=== PATIENT | male | born 1935 | race Caucasian/White ===

== ENCOUNTER → 2019-07-01 09:24 | Outpatient (BNVA) | payer MEDICARE, OTHER, SELFPAY | PROVIDERS: PCP Nurse Practitioner Family; Visit Provider Nurse Practitioner | DX: F41.1 Generalized anxiety disorder (principal) | CPT/HCPCS: 99213 ==

== ENCOUNTER → 2019-08-05 11:59 | Outpatient (BNVA) | payer MEDICARE, OTHER, SELFPAY | PROVIDERS: PCP Nurse Practitioner Family; Visit Provider Nurse Practitioner Family | DX: Z86.718 Personal history of other venous thrombosis and embolism (principal); E55.9 Vitamin D deficiency, unspecified; E78.2 Mixed hyperlipidemia; Z12.5 Encounter for screening for malignant neoplasm of prostate; R53.83 Other fatigue; Z79.899 Other long term (current) drug therapy; N40.0 Benign prostatic hyperplasia without lower urinary tract symptoms; M51.36 Other intervertebral disc degeneration, lumbar region; Z98.890 Other specified postprocedural states; Z79.01 Long term (current) use of anticoagulants | CPT/HCPCS: 80053; 80061; 81001; 82306; 83036; 84443; 85025; 85610; G0103 ==

== ENCOUNTER → 2019-09-30 07:46 | Outpatient (BNVA) | payer MEDICARE, OTHER, SELFPAY | PROVIDERS: PCP Nurse Practitioner Family; Visit Provider Nurse Practitioner | DX: F41.1 Generalized anxiety disorder (principal) | CPT/HCPCS: 99213 ==

== ENCOUNTER → 2019-11-08 12:02 | Outpatient (BNVA) | payer MEDICARE, SELFPAY | PROVIDERS: PCP Nurse Practitioner Family; Visit Provider Family Medicine | DX: Z79.01 Long term (current) use of anticoagulants (principal) | CPT/HCPCS: 85610 ==

== ENCOUNTER → 2019-11-16 21:52 | Outpatient (BNVA) | payer MEDICARE, SELFPAY | PROVIDERS: PCP Nurse Practitioner Family; Visit Provider Nurse Practitioner Family | DX: Z79.01 Long term (current) use of anticoagulants (principal) | CPT/HCPCS: 85610 ==

== ENCOUNTER → 2020-01-10 11:07 | Outpatient (BNVA) | payer MEDICARE, SELFPAY | PROVIDERS: PCP Nurse Practitioner Family; Visit Provider Nurse Practitioner Family | DX: Z00.00 Encounter for general adult medical examination without abnormal findings (principal); Z79.01 Long term (current) use of anticoagulants | CPT/HCPCS: 85610 ==

== ENCOUNTER → 2020-02-23 09:21 | Outpatient (BNVA) | payer MEDICARE, SELFPAY | PROVIDERS: PCP Nurse Practitioner Family; Visit Provider Nurse Practitioner Family | DX: Z79.01 Long term (current) use of anticoagulants (principal) | CPT/HCPCS: 85610 ==

== ENCOUNTER → 2020-02-28 08:57 | Outpatient (BNVA) | payer MEDICARE, SELFPAY | PROVIDERS: PCP Nurse Practitioner Family; Visit Provider Nurse Practitioner Family | DX: Z79.01 Long term (current) use of anticoagulants (principal); D69.9 Hemorrhagic condition, unspecified | CPT/HCPCS: 85610 ==

== ENCOUNTER → 2020-03-30 08:14 | Outpatient (BNVA) | payer MEDICARE, SELFPAY | PROVIDERS: PCP Nurse Practitioner Family; Visit Provider Nurse Practitioner Family | DX: Z79.01 Long term (current) use of anticoagulants (principal) | CPT/HCPCS: 85610 ==

== ENCOUNTER → 2020-05-03 09:59 | Outpatient (BNVA) | payer MEDICARE, SELFPAY | PROVIDERS: PCP Nurse Practitioner Family; Visit Provider Nurse Practitioner Family | DX: Z79.01 Long term (current) use of anticoagulants (principal) | CPT/HCPCS: 85610 ==

== ENCOUNTER → 2020-06-12 08:59 | Outpatient (BNVA) | payer MEDICARE, SELFPAY | PROVIDERS: PCP Nurse Practitioner Family; Visit Provider Nurse Practitioner Family | DX: Z79.01 Long term (current) use of anticoagulants (principal) | CPT/HCPCS: 85610 ==

== ENCOUNTER → 2020-08-17 08:34 | Outpatient (BNVA) | payer MEDICARE, SELFPAY | PROVIDERS: PCP Nurse Practitioner Family; Visit Provider Nurse Practitioner Family | DX: Z79.01 Long term (current) use of anticoagulants (principal) | CPT/HCPCS: 85610 ==

== ENCOUNTER → 2020-10-03 09:27 | Outpatient (BNVA) | payer MEDICARE, SELFPAY | PROVIDERS: PCP Nurse Practitioner Family; Visit Provider Nurse Practitioner Family | DX: Z12.5 Encounter for screening for malignant neoplasm of prostate (principal); Z79.01 Long term (current) use of anticoagulants; E78.2 Mixed hyperlipidemia; E55.9 Vitamin D deficiency, unspecified; R53.83 Other fatigue; Z86.718 Personal history of other venous thrombosis and embolism; M51.36 Other intervertebral disc degeneration, lumbar region | CPT/HCPCS: 80053; 80061; 81003; 82306; 83036; 84443; 85025; 85610; G0103 ==

== ENCOUNTER → 2020-11-09 15:47 | Outpatient (BNVA) | payer MEDICARE, SELFPAY | PROVIDERS: PCP Nurse Practitioner Family; Visit Provider Orthopaedic Surgery | DX: M54.5 Low back pain (principal) | CPT/HCPCS: 72110 ==

== ENCOUNTER → 2021-07-04 10:10 | Outpatient (BNVA) | payer MEDICARE, SELFPAY | PROVIDERS: PCP Nurse Practitioner Family; Visit Provider Orthopaedic Surgery | DX: M18.12 Unilateral primary osteoarthritis of first carpometacarpal joint, left hand (principal); G56.02 Carpal tunnel syndrome, left upper limb; Z46.89 Encounter for fitting and adjustment of other specified devices | CPT/HCPCS: 73130; 97760; L3924 ==

== ENCOUNTER 2021-07-04 11:24 | Outpatient (CLI) | payer MEDICARE, SELFPAY | END 2021-07-04 11:25 | disposition home or self-care (01) | LOC: SPT 11:25 | PROVIDERS: PCP Nurse Practitioner Family; Visit Provider Orthopaedic Surgery | DX: Z46.89 Encounter for fitting and adjustment of other specified devices (principal); M18.12 Unilateral primary osteoarthritis of first carpometacarpal joint, left hand | CPT/HCPCS: 97760; L3924 ==

== ENCOUNTER → 2021-07-06 11:22 | Outpatient (BNVA) | payer MEDICARE, SELFPAY | PROVIDERS: PCP Nurse Practitioner Family; Visit Provider Nurse Practitioner Family | DX: E55.9 Vitamin D deficiency, unspecified (principal); Z79.899 Other long term (current) drug therapy; R39.9 Unspecified symptoms and signs involving the genitourinary system; Z86.711 Personal history of pulmonary embolism | CPT/HCPCS: 80053; 80061; 81003; 82306; 83036; 84443; 85025; 85610; G0103 ==

== ENCOUNTER → 2021-08-14 11:01 | Outpatient (BNVA) | payer MEDICARE, SELFPAY | PROVIDERS: PCP Nurse Practitioner Family; Referring Provider Orthopaedic Surgery; Visit Provider Specialist | DX: G56.02 Carpal tunnel syndrome, left upper limb (principal); G56.22 Lesion of ulnar nerve, left upper limb | CPT/HCPCS: 95908 ==

== ENCOUNTER → 2021-10-03 10:49 | Outpatient (BNVA) | payer MEDICARE, SELFPAY | PROVIDERS: PCP Nurse Practitioner Family; Visit Provider Nurse Practitioner | DX: R53.83 Other fatigue (principal); M25.561 Pain in right knee; R39.9 Unspecified symptoms and signs involving the genitourinary system | CPT/HCPCS: 81000 ==

== ENCOUNTER → 2021-10-19 10:34 | Outpatient (BNVA) | payer MEDICARE, SELFPAY | PROVIDERS: PCP Family Medicine; Visit Provider Nurse Practitioner Family | DX: R39.9 Unspecified symptoms and signs involving the genitourinary system (principal); R31.0 Gross hematuria | CPT/HCPCS: 51741; 51798; 81003; 87086; 88112; 99203 ==

== ENCOUNTER → 2021-11-06 09:16 | Outpatient (BNVA) | payer MEDICARE, SELFPAY | PROVIDERS: PCP Family Medicine; Visit Provider Nurse Practitioner | DX: R60.9 Edema, unspecified (principal) | CPT/HCPCS: 80053 ==

== ENCOUNTER → 2022-01-21 15:19 | Outpatient (BNVA) | payer MEDICARE, SELFPAY | PROVIDERS: PCP Family Medicine; Visit Provider Internal Medicine | DX: F41.1 Generalized anxiety disorder (principal); R01.1 Cardiac murmur, unspecified; R06.02 Shortness of breath; M79.89 Other specified soft tissue disorders; R60.0 Localized edema; I50.9 Heart failure, unspecified; Z87.891 Personal history of nicotine dependence | CPT/HCPCS: 36415; 80048; 83880; 99204 ==

== ENCOUNTER 2022-03-15 07:53 | Outpatient (CLI) | payer MEDICARE, SELFPAY ==
[2022-03-15 08:10] VITALS: BMI 32.1
--- NOTE | 2022-03-15 08:29 | ECG_ITS ---
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 Interpretive Statements NAME OF STUDY: LEXISCAN SESTAMIBI STRESS TEST INDICATION: Shortness of Breath PROCEDURE: At the baseline, the blood pressure was 158/68 mmHg with a heart rate of 66 bpm. The electrocardiogram showed normal sinus rhythm. Poor anterior R wave progression. Nonspecific T wave changes in lead III and aVF. The Lexiscan was infused over a period of 20 seconds. A total of 0.4 milligrams of Lexiscan was infused. The stress phase was continued for a total of 5 minutes. Heart rate at the end of the stress phase was 83 bpm with a blood pressure of 152/67 mmHg. The EKG at the peak infusion revealed sinus rhythm with no significant ST-T wave changes artifact. The study was terminated due to protocol completion. Sestamibi was injected 20 seconds after the Lexiscan infusion. Blood pressure at the end of the recovery phase was 157/66 mmHg with a heart rate of 71 beats per minute. CONCLUSION: 1. No significant EKG changes with the LexiScan infusion. 2. No LexiScan induced chest pain or cardiac arrhythmia. 3. Normal blood pressure and heart rate response. 4. Sestamibi/sestamibi perfusion scan pending; see separate report. Electronically Signed On 03-19-2022 11:30:06 CDT by Anusha Parker M.D. [email or web address]
--- NOTE | 2022-03-15 08:29 | NMCV_ITS ---
NM jam perf SPECT r/s* [id number] Zeus Arthur Age: 87 Gender: M : 1935 Exam Date: 03/15/2022 09:42 Ordering Phys: Heath Rodriguez M.D ([email or web address]) Technologist: FELICIANO Herbert Exam Location: [facility] Indications: HEART MURMUR STRESS TEST Please see separate stress test report in [facility] for full findings IMAGE PROTOCOL Rest/Stress 1 Lexiscan Day Radiopharmaceutical Dose (mCi) Administration Site Administered by Rest: Tc-99m 10.8 IV FELICIANO Acevedo Sestamibi Stress:Tc-99m 32.6 IV FELICIANO Acevedo Sestamibi Rest: 15-Mar-2022 60 Discovery 630 Stress: 15-Mar-2022 30 Discovery 630 0.4mg Lexiscan. Supine position only as patient was unable to lay prone. SPECT RESULTS Technical Quality: Excellent Raw Data Analysis: Normal Image Corrections: No attenuation or motion correction applied Summed Stress Score: 2 Summed Rest Score: 2 Summed Difference Score: 1 PERFUSION FINDINGS Small size perfusion abnormality of mild severity of mid inferolateral wall on rest images with subtle reversibility in apical lateral wall on stress images. FUNCTIONAL RESULTS (calculated via Gated SPECT) Stress Image LV EF (%): 62 Stress EDV (mL):151 TID: 1.13 Stress ESV (mL):58 FUNCTIONAL FINDINGS: The left ventricle is normal in size. Transient Ischemia Dilatation of 1.1. There is normal left ventricular systolic function. The left ventricular ejection fraction is normal with a value of 62%. There is normal left ventricular wall thickening. IMPRESSIONS 1. Small sized perfusion abnormality of mid to apical inferolateral beaulieu with subtle reversibility in apical lateral wall . 2. This may represent attenuation artifact in absence of prone imaging. However small area of ischemia in circumflex artery territory cannot be completely ruled out. 3. Overall left ventricular systolic function is normal without regional wall motion abnormalities, LVEF=62%. 4. EKG portion of the study will be reported separately. Anusha Parker MD (Electronically Signed) Final Date: 19 March 2022 10:50 S
[2022-03-15] MEDS: regadenoson 0.4 Mg/5 ml Syringe IVP (10:40)
[2022-03-15 10:57] VITALS: BP 157/66; PULSE 71
--- NOTE | 2022-03-15 11:15 | USCV_ITS ---
Zeus Arthur Age: 87 Gender: M : 1935 Exam Date: 03/15/2022 08:42 Ordering Phys: Heath Rodriguez M.D ([email or web address]) Technologist: TERESA Exam Location: [facility] [place]ication: BLE SWELLING HISTORY: Lower extremity swelling. PROCEDURES: Venous duplex imaging was performed in bilateral lower extremities. The following venous structures were evaluated: common femoral vein, profunda vein, proximal portion of the greater saphenous vein, superficial femoral vein, and the popliteal vein. Bilaterally, the common femoral, superficial femoral, profunda femoral, popliteal, posterior tibial, greater saphenous veins, and the peroneal trunk were identified and interrogated in the standard fashion. These veins were found to be easily compressible with spontaneous blood flow. No evidence of insufficiency or thrombus noted. Serial compression, augmentation maneuvers, and spectral Doppler flow evaluation were performed. FINDINGS: Chronic DVT seen in Right Pop Vein. All other veins appear patent at this time Edema seen in lower extremities. CONCLUSIONS No acute DVT bilateral lower extremities. Chronic DVT right popliteal vein. Dr. Marianne Badillo DO (Electronically Signed) Final Date: 15 March 2022 12:40 S
--- NOTE | 2022-03-15 12:00 | USCV_ITS ---
Zeus Arthur Age: 87 Gender: M : 1935 Exam Date: 03/15/2022 08:55 Ordering Phys: Heath Rodriguez M.D ([email or web address]) Technologist: TERESA [place] [facility] [place]: MURMUR BP: 132 / 82 HR: 64 Rhythm: Sinus Technical Quality: Adequate MEASUREMENTS (Male / Female) Normal Values 2D ECHO LVOT Diameter 2.0 cm LV Ejection Fraction MOD 2C 68.9 % LV Ejection Fraction 2C AL 70.5 % LA Diameter 3.4 cm LA Width 3.1 cm LA Height 6.0 cm RA Width 4.0 cm RA Height 6.9 cm Aorta at Sinotubular Diameter 4.3 cm M-MODE Aortic Annulus Diameter 3.9 cm LA Ao Ratio MM 0.9 MV E Point Septal Separation 0.5 cm DOPPLER AV Peak Velocity 178.3 cm/s LVOT Peak Velocity 119.0 cm/s AV Area Cont Eq vti 2.3 cm squared AV Area Cont Eq pk 2.1 cm squared MV Peak Velocity 147.0 cm/s MV Area PHT 2.4 cm squared Mitral E to A Ratio 0.9 MV E' Velocity 41.0 cm/s Mitral E to MV E' Ratio 6.5 Mitral E to LV E' Lateral Ratio 6.6 Mitral E to LV E' Septal Ratio 6.5 TR Peak Velocity 195.4 cm/s TR Peak Gradient 15.3 mmHg TR Mean Velocity 169.4 cm/s TR Mean Gradient 11.6 mmHg TR Velocity Time Integral 63.5 cm TV Peak E Velocity 42.0 cm/s Right Atrial Pressure 8.0 mmHg Pulmonary Artery Systolic Pressu 23.3 mmHg PV Peak Velocity 116.0 cm/s RV Acceleration Time 0.1 s RV Ejection Time 0.3 s RV AcT/ET 0.4 FINDINGS Left Ventricle Normal left ventricular size, systolic function and wall thickness, with no regional wall motion abnormalities. Left ventricular ejection fraction is estimated at 60 %. Normal diastolic function. Right Ventricle Normal right ventricular size and systolic function. Right Atrium Normal right atrial size. Left Atrium Mildly increased left atrial size. Mitral Valve Structurally normal mitral valve. No mitral valve stenosis. Trace mitral valve regurgitation. Aortic Valve Aortic valve not well visualized. Mildly thickened trileaflet aortic valve. No aortic valve stenosis. [id number] aortic valve regurgitation. Tricuspid Valve Structurally normal tricuspid valve. Trace tricuspid valve regurgitation. Pulmonic Valve Pulmonic valve not well visualized. No pulmonary valve regurgitation. Pericardium No pericardial effusion. Aorta Dilated aortic root measured at 42 mm and dilated ascending aorta measured at 52 mm. IVC Inferior vena cava not visualized. CONCLUSIONS 1. Normal left ventricular size, systolic function and wall thickness, with no regional wall motion abnormalities. Left ventricular ejection fraction is estimated at 60 %. Normal diastolic function. 2. Dilated aortic root measured at 42 mm and dilated ascending aorta measured at 52 mm. 3. [id number] aortic valve regurgitation. 4. No significant change when compared to study dated 07/17/2013. Anusha Parker MD (Electronically Signed) Final Date: 20 March 2022 08:33 S
== END 2022-03-15 07:54 | disposition home or self-care (01) ==
PROVIDERS: PCP Family Medicine; Visit Provider Internal Medicine
DX: R06.02 Shortness of breath (principal); M79.89 Other specified soft tissue disorders; R01.1 Cardiac murmur, unspecified; I35.1 Nonrheumatic aortic (valve) insufficiency; I82.531 Chronic embolism and thrombosis of right popliteal vein
CPT/HCPCS: 78452; 93017; 93306; 93970; A9500; J2785

== ENCOUNTER → 2022-04-24 12:20 | Outpatient (BNVA) | payer MEDICARE, SELFPAY | PROVIDERS: PCP Family Medicine; Visit Provider Internal Medicine | DX: Z86.711 Personal history of pulmonary embolism (principal); E78.2 Mixed hyperlipidemia; I50.9 Heart failure, unspecified; R06.09 Other forms of dyspnea; Z87.891 Personal history of nicotine dependence; Z79.01 Long term (current) use of anticoagulants | CPT/HCPCS: 99214 ==

== ENCOUNTER 2022-04-26 13:46 | Outpatient (CLI) | payer MEDICARE, SELFPAY ==
--- NOTE | 2022-04-26 15:00 | CT_ITS ---
WS: [id number] CTA THORACIC TECHNIQUE: Contrast enhanced CTA of the thoracic aorta with coronal and sagittal reformatted images a nd maximum intensity projection (MIP) images. CLINICAL INFORMATION: Dilated aortic root COMPARISON: CTA chest July 16, 2013 DLP: 578.[address] scans at [facility] use at least one of these dose optimization techniques: automated e xposure control; mA and/or kV adjustment per patient size (includes targeted exams where dose is matc hed to clinical indication); or iterative reconstruction. 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 Aortic root measures approximately 5.1 cm at t he sinuses of Valsalva and 5.4 cm at the sinotubular junction. Low ascending thoracic aorta measures approximately 5.9 cm. Lobulated tortuous ectatic aortic arch. Normal caliber descending thoracic aort a. Proximal main pulmonary arteries are normal. Several filling defects in the segmental and subsegmenta l pulmonary arteries bilaterally compatible with pulmonary embolus. Small esophageal hiatal hernia. Adrenal glands are normal. Reflux into the hepatic veins suggestive o f RIGHT heart dysfunction. Gallbladder is contracted. Fatty atrophy of the pancreas. Hypertrophic raul nges thoracic spine with ankylosis. CT/CT angio chest [id number] IMPRESSION: 1. Several filling defects in the segmental and subsegmental pulmonary arterie s compatible with acute pulmonary embolus. Proximal main pulmonary arteries are normal. 2. Mild chronic emphysematous changes. Tiny RIGHT pleural effusion with bibasi lar atelectasis. 3. Small esophageal hiatal hernia. 4. Slight reflux into the hepatic veins suggestive of RIGHT heart dysfunction. 5. Ascending thoracic aorta measuring 5.8 cm. Low ascending thoracic aorta castro sures 5.9 CM. 6. Aortic root measures 5.1 cm at the sinuses of Valsalva and 5.4 cm at the si notubular junction Notified Heath Rodriguez M.D at 04/26/2022 500 PM.
[2022-04-26 15:32] LABS: Blood Urea Nitrogen 10 mg/dL (8-23)
[2022-04-26] MEDS: iohexol 350 mg/mL 500 mL Btl (per mL) IV (15:33)
== END 2022-04-26 13:47 | disposition home or self-care (01) ==
PROVIDERS: Urology; PCP Family Medicine; Visit Provider Internal Medicine
DX: I77.810 Thoracic aortic ectasia (principal); R39.9 Unspecified symptoms and signs involving the genitourinary system; K44.9 Diaphragmatic hernia without obstruction or gangrene; J90 Pleural effusion, not elsewhere classified
CPT/HCPCS: 71275; 82565; 84520; Q9967

== ENCOUNTER → 2022-05-07 08:44 | Outpatient (BNVA) | payer MEDICARE, SELFPAY | PROVIDERS: PCP Family Medicine; Visit Provider Internal Medicine | DX: R31.0 Gross hematuria (principal) | CPT/HCPCS: 85610 ==

== ENCOUNTER → 2022-05-10 11:46 | Outpatient (BNVA) | payer MEDICARE, SELFPAY | PROVIDERS: PCP Family Medicine; Visit Provider Internal Medicine | DX: R31.0 Gross hematuria (principal); Z79.01 Long term (current) use of anticoagulants | CPT/HCPCS: 85610 ==

== ENCOUNTER → 2022-05-13 10:02 | Outpatient (BNVA) | payer MEDICARE, SELFPAY | PROVIDERS: PCP Family Medicine; Visit Provider Internal Medicine | DX: R31.0 Gross hematuria (principal); Z79.01 Long term (current) use of anticoagulants | CPT/HCPCS: 85610 ==

== ENCOUNTER → 2022-06-05 15:36 | Outpatient (BNVA) | payer MEDICARE, SELFPAY | PROVIDERS: PCP Family Medicine; Visit Provider Internal Medicine | DX: R31.0 Gross hematuria (principal); Z79.01 Long term (current) use of anticoagulants | CPT/HCPCS: 85610 ==

== ENCOUNTER → 2022-06-11 15:42 | Outpatient (BNVA) | payer MEDICARE, SELFPAY | PROVIDERS: PCP Family Medicine; Visit Provider Internal Medicine | DX: R31.0 Gross hematuria (principal); Z79.01 Long term (current) use of anticoagulants | CPT/HCPCS: 85610 ==

== ENCOUNTER → 2022-07-16 09:14 | Outpatient (BNVA) | payer MEDICARE, SELFPAY | PROVIDERS: PCP Family Medicine; Visit Provider Internal Medicine | DX: R31.0 Gross hematuria (principal); Z79.01 Long term (current) use of anticoagulants | CPT/HCPCS: 85610 ==

== ENCOUNTER → 2022-07-24 15:28 | Outpatient (BNVA) | payer MEDICARE, SELFPAY | PROVIDERS: PCP Family Medicine; Visit Provider Nurse Practitioner | DX: R53.83 Other fatigue (principal); Z79.899 Other long term (current) drug therapy; M25.561 Pain in right knee; R20.2 Paresthesia of skin; R20.0 Anesthesia of skin | CPT/HCPCS: 80053; 82306; 84443; 85025 ==

== ENCOUNTER → 2022-07-25 08:34 | Outpatient (BNVA) | payer MEDICARE, SELFPAY | PROVIDERS: PCP Family Medicine; Visit Provider Nurse Practitioner | DX: R53.83 Other fatigue (principal); Z79.899 Other long term (current) drug therapy; M25.561 Pain in right knee; R20.2 Paresthesia of skin; R20.0 Anesthesia of skin; Z79.01 Long term (current) use of anticoagulants; R31.0 Gross hematuria | CPT/HCPCS: 85610 ==

== ENCOUNTER 2022-08-13 06:00 | Outpatient (RCR) | payer MEDICARE, SELFPAY | END 2022-08-23 23:59 | disposition home or self-care (01) | LOC: WPT 06:00 | PROVIDERS: Visit Provider Nurse Practitioner | DX: M51.36 Other intervertebral disc degeneration, lumbar region (principal); I50.9 Heart failure, unspecified; Z74.09 Other reduced mobility | CPT/HCPCS: 97110; 97161 ==

== ENCOUNTER → 2022-08-13 14:57 | Outpatient (BNVA) | payer MEDICARE, SELFPAY | PROVIDERS: Visit Provider Nurse Practitioner | DX: R31.9 Hematuria, unspecified (principal) | CPT/HCPCS: 81000 ==

== ENCOUNTER 2022-08-15 10:02 | Emergency (ER) | payer MEDICARE, SELFPAY ==
[2022-08-15 10:08] VITALS: BP 155/75; PULSE 80; RESP 16; TEMP 36.4; O2SAT 98
--- NOTE | 2022-08-15 10:35 | ED_ITS ---
HPI - Extremity Problem General: Chief complaint: Extremity Problem,Nontraumatic Stated complaint: Pain in both hands and wrists Time Seen by Provider: 08/15/22 10:13 History of Present Illness: Pt comes in with bilateral hand pain and numbess. States that it has been going on for over a year but getting worse. States that it wakes him up at night. He has an appointment to see orthopedic surgery next week. Associated symptoms: Deny chest pain, fever(s) or rash Review of Systems Const: Denies: fever(s) or body aches Eyes: Denies: change in vision or blurry vision ENMT: Denies: throat pain or odynophagia Card: Denies: chest pain or palpitations Resp: Denies: dyspnea or productive cough GI: Denies: abdominal pain, nausea or vomiting : Denies: flank pain or dysuria Musc: Reports: other (Bilateral hand pain and numbness); Denies: neck pain or back pain Skin/Breast: Denies: rash or pruritus Neuro: Denies: headache(s) or numbness in extremities Psych: Denies: anxiety or change in appetite Endo: Denies: polyuria or excessive sweating PFSH ED PFSH: Medical History Anticoagulated Bilateral hearing loss Bilateral pulmonary embolism DDD (degenerative disc disease), lumbar Fatigue Generalized anxiety disorder Gross hematuria H/O deep venous thrombosis History of pulmonary embolism Left carpal tunnel syndrome Lower urinary tract symptoms (LUTS) Lumbar back pain Lumbar radicular pain Medication management Melanoma Mixed hyperlipidemia Prostate cancer screening Right knee pain Urinary symptom or sign Vitamin D deficiency Surgical History S/P laminectomy Social History Smoking and tobacco status: former smoker Physical Exam Const: COMMON NORMALS: no acute distress, patient oriented x3, healthy appearing and alert HENMT: COMMON NORMALS: normocephalic and atraumatic HEAD & SCALP: normocephalic and atraumatic Eye: COMMON NORMALS: Equal, round and reactive pupils present and EOMs intact bilaterally PUPIL: Yes Equal, round and reactive pupils present Neck/C-Spine: COMMON NORMALS: full ROM and supple Resp: COMMON NORMALS: normal respiratory effort, No retractions and No use of accessory muscles Back/Pelvis: COMMON NORMALS: thoracic and lumbar spine normal to inspection and no thoracic nor lumbar tenderness Extremity: COMMON NORMALS: full ROM; negative for normal to inspection OTHER: Positive Tinel's sign bilateral Neuro: COMMON NORMALS: patient oriented x3 SENSORIUM/ORIENTATION: Yes alert Psych: COMMON NORMALS: mental status grossly normal and cooperative Skin: COMMON NORMALS: no rashes or lesions noted and no wounds GENERAL SKIN EXAM: no rashes or lesions noted Course Vital Signs: Vital signs: Vital Signs Temperature 97.5 F L 08/15/22 10:08 Pulse Rate 80 08/15/22 10:08 Respiratory Rate 16 08/15/22 10:08 Blood Pressure 155/75 08/15/22 10:08 Pulse Oximetry 98 08/15/22 10:08 Oxygen Delivery Me thod 08/15/22 10:08 MDM - Extremity (Nontraumatic) Medical Decision Making Pt comes in with bilateral hand pain and numbess. States that it has been going on for over a year but getting worse. States that it wakes him up at night. He has an appointment to see orthopedic surgery next week. On PE he has + Tinels sign in both wrists. States that he took tramadol prior to arrival and the pain is significantly better. I talked him about wearing his splints at night which she has not been doing. Will discharge home at this time with precautions to return for worsening or changing symptoms. Discharge Plan Discharge Patient Disposition: Home Clinical Impression: Bilateral carpal tunnel syndrome Condition: Stable Prescriptions: New hydrocodone-acetaminophen 5-325 mg tablet 1 tab PO Q6H PRN (Reason: pain) Qty: 20 0RF No Action alprazolam 0.5 mg tablet 0.5 mg PO BID PRN (Reason: anxiety) 30 Days Qty: 60 2RF (DME) PT/OT eval and treat See Rx Instructions .Route .MEDSUPPLY Qty: 1 0RF Rx Instructions: As directed warfarin 5 mg tablet 5 mg PO DAILY Qty: 90 2RF Protocol: Dose Management Condition: Friday Dose/Route: 5 mg Instruction: 1 x 5 mg tablet Condition: Friday Dose/Route: 6 mg Instruction: 1 x 1 mg tablet, 1 x 5 mg tablet Condition: Friday Dose/Route: 5 mg Instruction: 1 x 5 mg tablet Condition: Friday Dose/Route: 6 mg Instruction: 1 x 1 mg tablet, 1 x 5 mg tablet Condition: Dose/Route: 5 mg Instruction: 1 x 5 mg tablet Condition: Friday Dose/Route: 5 mg Instruction: 1 x 5 mg tablet Condition: Friday Dose/Route: 5 mg Instruction: 1 x 5 mg tablet Protocol Text: Adjustment Start Date: 07/18/22 INR Value: 14.70 SECONDS INR Date: 07/16/22 Recheck Date: 07/25/22 warfarin 1 mg tablet 1 mg PO DAILY Qty: 90 2RF Protocol: Dose Management Condition: Friday Dose/Route: 5 mg Instruction: 1 x 5 mg tablet Condition: Friday Dose/Route: 6 mg Instruction: 1 x 1 mg tablet, 1 x 5 mg tablet Condition: Friday Dose/Route: 5 mg Instruction: 1 x 5 mg tablet Condition: Friday Dose/Route: 6 mg Instruction: 1 x 1 mg tablet, 1 x 5 mg tablet Condition: Dose/Route: 5 mg Instruction: 1 x 5 mg tablet Condition: Friday Dose/Route: 5 mg Instruction: 1 x 5 mg tablet Condition: Friday Dose/Route: 5 mg Instruction: 1 x 5 mg tablet Protocol Text: Adjustment Start Date: 07/18/22 INR Value: 14.70 SECONDS INR Date: 07/16/22 Recheck Date: 07/25/22 (DME) miscellaneous medical supply Misc See Rx Instructions .Route Qty: 1 0RF Rx Instructions: As directed tramadol 50 mg tablet 50 mg PO QPM PRN (Reason: pain) Discharge Orders: Discharge ED (Routine); Ordered 08/15/22 Ordered By: Malcom Houston Patient Instructions: Carpal Tunnel Syndrome, Opioid Safety, Pain Management Coding Level of Care Code ED Nurse Anesthesia Program Director for Kam [facility]oo
[2022-08-15 10:44] VITALS: PULSE 69; O2SAT 97
--- NOTE | 2022-08-21 12:52 | DCPLANNER ---
Addendum entered by Myriam Savage 08/27/22 15:13: manager commercial called patient due to no primary care physician - no answer at this time Original Note: manager commercial called patient due to no primary care physician - no answer at this time, a voicemail was left for patient
== END 2022-08-15 10:45 | disposition home or self-care (01) ==
PROVIDERS: Emergency Provider Emergency Medicine
DX: G56.03 Carpal tunnel syndrome, bilateral upper limbs (principal); E78.2 Mixed hyperlipidemia; Z87.891 Personal history of nicotine dependence
CPT/HCPCS: 99283

== ENCOUNTER → 2022-08-21 09:41 | Outpatient (BNVA) | payer MEDICARE, SELFPAY | PROVIDERS: Referring Provider Nurse Practitioner; Visit Provider Specialist | DX: G56.03 Carpal tunnel syndrome, bilateral upper limbs (principal); M25.561 Pain in right knee | CPT/HCPCS: 73110; 73560; 73565; 99214 ==

== ENCOUNTER 2022-09-05 09:48 | Outpatient (CLI) | payer MEDICARE, SELFPAY ==
--- NOTE | 2022-09-05 09:57 | XR_ITS ---
WS: [id number] EXAMINATION: XR cervical spine 3V* [id number] REASON FOR EXAM: M54.2 - Cervicalgia COMPARISON: None available. ORDER DATE: 09/05/2022 10:06 AM FINDINGS: Generalized degenerative spinal changes are seen including moderate degenerative endplate changes and marginal osteophytes in the lower cervical spine. There is moderate narrowing of the C4-5 disc and m ild narrowing at C5-6. There is no evidence of acute compression deformities or spondylolisthesis. Th ere are bilateral carotid calcifications very extensive on the right XR/XR cervical spine 3V* [id number] IMPRESSION: MODERATE DEGENERATIVE SPINE CHANGE AND SPONDYLOSIS. PROMINENCE OF THE CAROTID CALCIFICATIONS, SUGGEST BILATERAL CAROTID ULTRASOUND FOR CORRELATION UNLESS ALREADY PERFORMED.
== END 2022-09-05 09:49 | disposition home or self-care (01) ==
PROVIDERS: PCP Nurse Practitioner Family; Visit Provider Nurse Practitioner Family
DX: M47.892 Other spondylosis, cervical region (principal); M54.2 Cervicalgia
CPT/HCPCS: 72040

== ENCOUNTER 2022-09-11 14:53 | Emergency (ER) | payer MEDICARE, SELFPAY ==
[2022-09-11 15:00] VITALS: BP 147/63; PULSE 76; RESP 18; O2SAT 96; BMI 32.5
--- NOTE | 2022-09-11 16:11 | ED_ITS ---
HPI - Extremity Problem General: Chief complaint: Extremity Problem,Nontraumatic Stated complaint: hands pain/carpal tunnel Time Seen by Provider: 09/11/22 15:54 History of Present Illness: Patient is an 87-year-old male comes to the ED with bilateral hand pain and tingling sensation. Patient has been dealing with this for the past 6 months. He went and saw Dr. Baig in the Ortho clinic and she was not convinced that it was carpal tunnel syndrome. She referred him to Dr. Gilman and he has a nerve conduction test scheduled for next month. Patient says the pain has continued and is getting tough to deal with. He says pain is worse at night and he describes it as an aching pain in his hands bilaterally. He also has numbness and tingling to his fingers as well bilaterally. Patient says his right hand hurts a little more than his left. Denies any injury or trauma. Associated symptoms: Deny chest pain, fever(s) or rash Review of Systems Const: Denies: fever(s), chills or fatigue Eyes: Denies: change in vision or eye discomfort ENMT: Denies: throat pain, odynophagia, nasal discharge or nasal congestion Card: Denies: chest pain, palpitations, edema, swelling of feet/ankles, dyspnea on exertion or orthopnea Resp: Denies: dyspnea, productive cough or non-productive cough GI: Denies: abdominal pain, nausea, vomiting, diarrhea, constipation or hematochezia : Denies: flank pain, difficulty urinating, dysuria or hematuria Musc: Reports: extremity pain (Bilateral hand pain) and other (Bilateral numbness tingling to fingers.); Denies: neck pain, back pain or extremity swelling Skin/Breast: Denies: rash or new lesions Neuro: Denies: headache(s), numbness in extremities or weakness in extremities [facility] ED PFSH: Medical History (Updated 09/11/22 @ 16:24 by GUCCI Hancock) Anticoagulated Bilateral hearing loss Bilateral pulmonary embolism DDD (degenerative disc disease), lumbar Fatigue Generalized anxiety disorder Gross hematuria H/O deep venous thrombosis History of pulmonary embolism Left carpal tunnel syndrome Lower urinary tract symptoms (LUTS) Lumbar back pain Lumbar radicular pain Medication management Melanoma Mixed hyperlipidemia Prostate cancer screening Right knee pain Unspecified symptoms and signs involving the genitourinary system Urinary symptom or sign Vitamin D deficiency Surgical History S/P laminectomy Social History Smoking and tobacco status: former smoker Physical Exam Const: COMMON NORMALS: no acute distress, patient oriented x3 and healthy appearing HENMT: COMMON NORMALS: normocephalic HEAD & SCALP: normocephalic MOUTH: Normal oral and palatal mucosa present THROAT: posterior oropharynx normal and uvula midline Neck/C-Spine: COMMON NORMALS: supple GENERAL: Yes normal visual inspection Resp: COMMON NORMALS: normal respiratory effort, No retractions, No use of accessory muscles and clear to auscultation bilaterally AUSCULTATION: clear to auscultation bilaterally Cardio: COMMON NORMALS: regular rate, regular rhythm, S1 normal heart sound present, S2 normal heart sound present, No gallops present (Cardio), No clicks present (Cardio), No murmurs present (Cardio) and Peripheral pulses 2+ throughout RATE: regular rate RHYTHM: regular rhythm HEART SOUNDS: S1 normal heart sound present and S2 normal heart sound present PERIPHERAL PULSES: Peripheral pulses 2+ throughout GI: COMMON NORMALS: Normal to inspection, nondistended, normoactive bowel sounds present, Soft to palpation, non-tender and no masses PALPATION: Yes Soft to palpation : COMMON NORMALS: Yes no CVA tenderness BLADDER/KIDNEY EXAM: Yes no CVA tenderness Back/Pelvis: COMMON NORMALS: no CVA tenderness Extremity: COMMON NORMALS: normal to inspection, full ROM and capillary refill normal NARRATIVE EXTREMITY EXAM: Bilateral hand exam shows no erythema, warmth or swelling. Negative Phalen's test. Neurovascular intact. Neuro: COMMON NORMALS: patient oriented x3 GAIT: Yes Normal gait present Skin: GENERAL SKIN EXAM: dry skin Course Vital Signs: Vital signs: Vital Signs Pulse Rate 76 09/11/22 15:00 Respiratory Rate 15 09/11/22 16:27 Blood Pressure 147/63 09/11/22 15:00 Pulse Oximetry 96 09/11/22 15:00 Oxygen Delivery Me thod Room Air 09/11/22 15:00 MDM - Extremity (Nontraumatic) Medical Decision Making Patient is an 87-year-old male comes to the ED with bilateral hand pain and tingling sensation. Patient has been dealing with this for the past 6 months. He went and saw Dr. Baig in the Ortho clinic and she was not convinced that it was carpal tunnel syndrome. She referred him to Dr. Gilman and he has a nerve conduction test scheduled for next month. Patient says the pain has continued and is getting tough to deal with. He says pain is worse at night and he describes it as an aching pain in his hands bilaterally. He also has numbness and tingling to his fingers as well bilaterally. Patient says his right hand hurts a little more than his left. Denies any injury or trauma. Vital stable. Bilateral hand exam shows no erythema, warmth or swelling. Negative Phalen's test. Neurovascular intact. Patient was given pain med and steroid shot here in the ED. Was diagnosed with bilateral hand pain and told to continue following up with neurologist for nerve conduction test and with Dr. Baig for further evaluation of carpal tunnel type symptoms. He was discharged home with a prescription for pain med and steroid Dosepak. Return ED precautions given. Patient understood and agreed with plan. Discharge Plan Discharge Patient Disposition: Home Clinical Impression: Bilateral hand pain Condition: Stable Prescriptions: New Medrol (Alex) 4 mg tablets,dose pack See Rx Instructions .ROUTE .COMPLEX Qty: 21 0RF Rx Instructions: orally per package directions No Action alprazolam 0.5 mg tablet 0.5 mg PO BID PRN (Reason: anxiety) 30 Days Qty: 60 2RF cholecalciferol (vitamin D3) 1,250 mcg (50,000 unit) capsule 50,000 unit PO .COMPLEX Qty: 8 0RF Rx Instructions: 50,000 units orally Once Weekly (DME) PT/OT eval and treat See Rx Instructions .Route .MEDSUPPLY Qty: 1 0RF Rx Instructions: As directed warfarin 1 mg tablet 1 mg PO DAILY Qty: 90 2RF Protocol: Dose Management Condition: Friday Dose/Route: 5 mg Instruction: 1 x 5 mg tablet Condition: Friday Dose/Route: 6 mg Instruction: 1 x 1 mg tablet, 1 x 5 mg tablet Condition: Friday Dose/Route: 5 mg Instruction: 1 x 5 mg tablet Condition: Friday Dose/Route: 6 mg Instruction: 1 x 1 mg tablet, 1 x 5 mg tablet Condition: Dose/Route: 5 mg Instruction: 1 x 5 mg tablet Condition: Friday Dose/Route: 5 mg Instruction: 1 x 5 mg tablet Condition: Friday Dose/Route: 5 mg Instruction: 1 x 5 mg tablet Protocol Text: Adjustment Start Date: 07/18/22 INR Value: 14.70 SECONDS INR Date: 07/16/22 Recheck Date: 07/25/22 (DME) miscellaneous medical supply Misc See Rx Instructions .Route Qty: 1 0RF Rx Instructions: As directed gabapentin 100 mg capsule 200 mg PO .COMPLEX Qty: 60 1RF Rx Instructions: Take 1 tab in am and 2 tabs in evening 200 mg orally; warfarin 5 mg tablet 5 mg PO DAILY Qty: 90 2RF Protocol: Dose Management Condition: Friday Dose/Route: 5 mg Instruction: 1 x 5 mg tablet Condition: Friday Dose/Route: 6 mg Instruction: 1 x 1 mg tablet, 1 x 5 mg tablet Condition: Friday Dose/Route: 5 mg Instruction: 1 x 5 mg tablet Condition: Friday Dose/Route: 6 mg Instruction: 1 x 1 mg tablet, 1 x 5 mg tablet Condition: Dose/Route: 5 mg Instruction: 1 x 5 mg tablet Condition: Friday Dose/Route: 5 mg Instruction: 1 x 5 mg tablet Condition: Friday Dose/Route: 5 mg Instruction: 1 x 5 mg tablet Protocol Text: Adjustment Start Date: 07/18/22 INR Value: 14.70 SECONDS INR Date: 07/16/22 Recheck Date: 07/25/22 hydrocodone-acetaminophen 5-325 mg tablet 1 tab PO Q6H PRN (Reason: pain) Qty: 20 0RF tramadol 50 mg tablet 50 mg PO QPM PRN (Reason: pain) Discharge Orders: Discharge ED (Routine); Ordered 09/11/22 Ordered By: Ed Gonzales Referrals: Lindsay Perla FNP [Primary Care Provider] - Discharge Diet: Regular Discharge Activity: Increase activity as tolerated Activity Restrictions/Additional Instructions: Follow-up with medical provider as directed in the next 2 to 3 days for follow- up on pain. Go to your scheduled appointment with neurologist for nerve conduction test. take medications as prescribed. Return to the ER or your medical provider if condition worsens. Please read and understand discharge instructions. Thank you for choosing [facility] for your healthcare needs today. Please realize this is an emergency room and that we are providing you with a m edical screening exam and this may not be complete and all inclusive of all the testing and or work up that you may need to determine your ailment or severity of your illness. It is very important that you follow up as instructed or that you return to the Emergency Department should you have concerns or if your condition changes or worsens in any way. Coding Level of Care Code ED Filter Press Supervisor for Kam Boo
[2022-09-11 16:27] VITALS: RESP 15
[2022-09-11] MEDS: oxyCODONE-APAP 5-325 mg Tablet 1 TAB PO (16:27)
== END 2022-09-11 16:39 | disposition home or self-care (01) ==
PROVIDERS: Emergency Provider Physician Assistant; PCP Nurse Practitioner Family
DX: M79.641 Pain in right hand (principal); M79.642 Pain in left hand; Z79.01 Long term (current) use of anticoagulants; E78.2 Mixed hyperlipidemia; Z87.891 Personal history of nicotine dependence
CPT/HCPCS: 96372; 99284; J2930

== ENCOUNTER 2022-09-25 10:04 | Outpatient (CLI) | payer MEDICARE, SELFPAY ==
--- NOTE | 2022-09-25 10:30 | USR_ITS ---
PROCEDURE INFORMATION: Exam: US Duplex Lower Extremity Arteries Exam date and time: 09/25/2022 10:43 AM Age: 87 years old Clinical indication: Condition or disease; Peripheral vascular disease; Additional info: I73.9 - peripheral vascular disease, unspecified TECHNIQUE: Imaging protocol: Real-time ultrasound scan of the arteries of the bilateral lower extremities with 2-D meier scale, color Doppler flow and spectral waveform analysis. Images documented and saved. COMPARISON: No relevant prior studies available. FINDINGS: Right external iliac artery: Normal waveform. Peak velocity 95 cm/s. Right common femoral artery: Normal waveform. Peak velocity 120 cm/s. Right superficial femoral artery: Normal waveform. Peak velocity 80 cm/s. Right popliteal artery: Normal waveform. Peak velocity 40 cm/s. Right calf/foot arteries: The right posterior tibial and dorsalis pedis arteries are patent and demonstrate normal waveforms. Left external iliac artery: Normal waveform. Peak velocity 88 cm/s. Left common femoral artery: Normal waveform. Peak velocity 66 cm/s. Left superficial femoral artery: Normal waveform. Peak velocity 80 cm/s. Left popliteal artery: Normal waveform. Peak velocity 69 cm/s. Left calf/foot arteries: The left posterior tibial artery is patent and demonstrates a normal waveform. There is minimal detectable blood flow with a parvus tardus waveform in the left dorsalis pedis artery. Other findings: Irregular cardiac [place]. US/[place] [id number] IMPRESSION: 1. No hemodynamically significant stenosis from iliac through popliteal arteries bilaterally. 2. Minimal detectable flow in the left dorsalis pedis artery consistent with high-grade stenosis or occlusion of the anterior tibial artery (not imaged). 3. Normal left posterior tibial artery. 4. Normal right posterior tibial and dorsalis pedis arteries. 5. Irregular cardiac rhythm.
== END 2022-09-25 10:05 | disposition home or self-care (01) ==
PROVIDERS: PCP Nurse Practitioner Family; Visit Provider Nurse Practitioner Family
DX: I73.9 Peripheral vascular disease, unspecified (principal); R39.9 Unspecified symptoms and signs involving the genitourinary system
CPT/HCPCS: 93925

== ENCOUNTER → 2022-10-03 09:47 | Outpatient (BNVA) | payer MEDICARE, SELFPAY | PROVIDERS: PCP Nurse Practitioner Family; Visit Provider Thoracic Surgery (Cardiothoracic Vascular Surgery) | DX: I77.1 Stricture of artery (principal) | CPT/HCPCS: 99203 ==

== ENCOUNTER → 2022-10-22 12:37 | Outpatient (BNVA) | payer MEDICARE, SELFPAY | PROVIDERS: PCP Nurse Practitioner Family; Referring Provider Specialist; Visit Provider Specialist | DX: G56.23 Lesion of ulnar nerve, bilateral upper limbs (principal); G56.03 Carpal tunnel syndrome, bilateral upper limbs | CPT/HCPCS: 95910; 95912 ==

== ENCOUNTER → 2022-11-21 09:41 | Outpatient (BNVA) | payer MEDICARE, SELFPAY | PROVIDERS: PCP Nurse Practitioner Family; Visit Provider Student in an Organized Health Care Education/Training Program | DX: G56.03 Carpal tunnel syndrome, bilateral upper limbs (principal); G56.23 Lesion of ulnar nerve, bilateral upper limbs | CPT/HCPCS: 99204 ==

== ENCOUNTER 2022-11-29 06:30 | Day surgery (SDC) | payer MEDICARE, SELFPAY ==
[2022-11-28 15:14] VITALS: BMI 32.1
[2022-11-29] VITALS (10 sets, daily range): BP systolic 123–140; BP diastolic 50–98; PULSE 60–83; RESP 16–20; TEMP 36.1–36.8; O2SAT 96–100
[2022-11-29] MEDS: sodium chloride 0.9% 1,000 ML 30 ML IV (06:52)
[2022-11-29] MEDS: ketorolac 30 mg/mL INJ IVP (06:53)
[2022-11-29] MEDS: acetaminophen 1,000 MG/100 ML PIGGYBACK 400 MG IV (06:54)
--- NOTE | 2022-11-29 10:15 | W.PM.OPSUD ---
Surgery/Procedure H&P Update DATE OF PROCEDURE: November 29, 2022 DATE H&P PERFORMED: 11/21/22 CHANGES TO PREVIOUS DOCUMENTATION: None. No changes in HPI from office visit on 11/21/2022. Patient has right carpal tunnel syndrome and right cubital tunnel syndrome and elects proceed with surgical intervention of right carpal tunnel release right cubital tunnel release and possible ulnar nerve transposition. Patient understands risk benefits complication alternatives with surgery elects proceed all questions answered. PREOP DIAGNOSIS: Right carpal tunnel syndrome, right cubital tunnel syndrome PRIMARY INDICATION FOR PROCEDURE: RIght carpal tunnel syndrome, right cubital tunnel syndrome PLANNED PROCEDURE: Operation Date: 11/29/22 07:55 Proposed Procedures p Right carpal tunnel release 66390, Right cubital tunnel release 76244 with possible ulnar nerve transposition 84193,G56.03(Right) - DO chrissy Hinton Cubital Tunnel Release(Right) - DO chrissy Hinton PossUlnar Nerve Transposition(Right) - Quentin Gonzales DO
[2022-11-29] MEDS: ceFAZolin 2,000 MG in sodium chloride 0.9% (plus) 50 ML 100 MG IV (10:17)
[2022-11-29] MEDS: lidocaine-epi 1% 20 mL INJ INJECTION (10:47)
--- NOTE | 2022-11-29 11:30 | PC.NURSE ---
Pt arrived to PACU, awake, O2 at 6L/min via simple mask. Dressing to right arm C/D/I, right fingers p/w/d, cap refill < 3 seconds, able to wiggle fingers. RUE elevated on pillow.
--- NOTE | 2022-11-29 13:46 | ANE.PACU2 ---
Inpatient post-anesthesia follow up: Airway intact: Yes Vital signs: Temperature 97.7 F Pulse Rate 83 Respiratory Rate 18 Blood Pressure 136/86 Pulse Oximetry 100 Oxygen Delivery Me thod Room Air Oxygen Flow Rate 6 Fraction of Inspir ed Oxygen Hydration adequate: Yes Nausea and vomiting: No Pain level: 2 Mental status: Baseline
--- NOTE | 2022-11-29 18:37 | PM.OP2 ---
Brief Operative Note Date of procedure: 11/29/22 Pre-op diagnosis: Right carpal tunnel syndrome, right cubital tunnel syndrome Post-op diagnosis: same Procedure Done: Right carpal tunnel release Right cubital tunnel release (ulnar nerve decompression) Surgeon: Quentin Gonzales Estimated blood loss (mL): 5 Complications: None Post-op Plan: Patient taken to PACU in stable condition recovering well. Pain controlled. Patient receive appropriate discharge instructions as well as pain medication postoperatively. Follow-up in the orthopedic office in 2 weeks. Understand if they have any questions or concerns and contact the office. Condition: stable Disposition: same day Coding Level of Care Code Acute Code for Chg Ema
--- NOTE | 2022-11-29 18:39 | P.OP_ITS ---
Operative Report Date of procedure: November 29, 2022 Pre-op diagnosis: Preop Diagnosis Right carpal tunnel syndrome, right cubital tunnel syndrome Procedure: Procedure done: Right carpal tunnel release Right cubital tunnel tunnel release (ulnar nerve decompression at elbow) Surgeon: Quentin Gonzales DO Estimated blood loss: 5 mL Tourniquet 23 minutes IV fluids: See anesthesia record Complications: None Findings: See operative report narrative Condition: stable Disposition: same day Brief History: Patient's been seen and worked up in the outpatient setting and findings consistent with preoperative diagnosis.? Patient has right carpal tunnel syndrome as well as right cubital tunnel syndrome which has been worked up in the outpatient setting has physical exam findings consistent with this as well as confirmatory nerve conduction/EMG nerve conduction study consistent with diagnosis. As result through shared decision making agreed to proceed with? right carpal tunnel and right cubital tunnel release we talked about treatment options as far as nonoperative and operative intervention.? Understands risk benefits complication alternatives surgical nonsurgical treatment options.? Und erstanding his risks he agrees to proceed with surgical intervention. Understanding these risks he agrees to proceed with surgery.? Consent obtained in office. Procedure: Patient seen evaluate in the preoperative holding area.? Consent was reviewed and signed with patient.? Correct extremity marked.? Patient seen evaluated by anesthesia department once cleared for surgery was then taken back to the operative suite placed in supine position all bony prominences well-padded patient properly secured to bed.? right upper extremity placed onto armboard.? Nonsterile tourniquet applied right upper arm.? Patient then underwent anesthesia per the anesthesia department.? Patient's right upper extremity was then prepped and draped in standard orthopedic fashion.? Final timeout performed.? Patient received appropriate preoperative antibiotics. Esmarch was used exsanguinate the right upper extremity.? Tourniquet was insufflated to 250 mmHg. I started with the carpal tunnel release first.? I made a standard open carpal tunnel release starting with the distal most extent in the palm at the Corrigan's cardinal line and the incision line was made in line with the fourth ray and ended just distal to the wrist crease.? Sharp scalpel incision was made through skin and subcutaneous tissue I then utilizing self retainer then began to dissect with dissection scissors split longitudinally the palmar fascia.? Next I then utilizing my after school program assistant Yu retractors subsequently utilizing scalpel feathered through the palmaris brevis as well as through the transverse carpal ligament distally.? Once I encountered the floor of the transverse carpal ligament and entered into the carpal tunnel I then switched to dissection scissors.? Carefully released the distal extent of the transverse carpal ligam ent to the palmar fat.? Care was to protect the recurrent branch and not injured this during this part of the case.? Next I then placed a Stonewall underneath the transverse carpal ligament proximally to protect the nerve in the carpal tunnel contents.? And then I subsequently under loupe magnification utilize my dissection scissors to release the transverse carpal ligament into the antebrachial fascia under direct visualization with care to keep my scissors with a curved ulnarly away from the palmar cutaneous branch.? The transverse carpal was then completely decompressed proximally and a Stonewall was then placed both distally and proximally throughout the carpal tunnel and had complete decompression of the nerve.? The nerve did appear to have hourglass shape as it went through the carpal tunnel.? With significant irritation noted around the nerve.? No masses were noted within the contents of the carpal tunnel.? This completed the carpal tunnel release and then I subsequently irrigated the wound bed and placed a wet Ray-Cheko into the incision for later closure. Next marked out the landmarks of the right elbow of the medial epicondyle and olecranon and made a curvilinear incision following the course of the ulnar nerve at the medial aspect of the elbow.? Sharp scalpel incision was made through skin and subcutaneous tissue.? Next I switched to Littler dissection scissors and spread in plane of the medial antebrachial cutaneous nerve branching which was protected throughout this part of the dissection.? Then I directly came down over the fascia and identified the 2 heads of the FCU fascia and split this right in the middle and subsequently identified my ulnar nerve distally.? This was then completely released distally under direct visualization and loupe magnification.? Once the nerve was then identified I then subsequently tracked this proximally and released this through Das's ligament as well as complete decompression of the nerve proximally all the way past the inter muscular septum.? The nerve was completely released and decompressed both proximally and distally.? Ulnar nerve neurolysis performed and completed both proximally and distally with dissection scissors.? I then took the elbow through range of motion and there was no instability or subluxating of the ulnar nerve.? This completed cubital tunnel release.? Next the wound bed was thoroughly irrigated.? Tourniquet was deflated.? Hemostasis was satisfactory at the cubital tunnel release surgery site. I then inspected the carpal tunnel incision and this was found to have satisfactory hemostasis and all this was maintained through bipolar electrocautery.? At this point time I sequentially closed cubital tunnel site with 3-0 Vicryl suture in a running horizontal mattress nylon stitch.? ? The carpal tunnel release surgery was then closed in standard interrupted mattress fashion.? Dressing was Xeroform 4 x 4's ABD Curlex soft roll and an Marcin wrap has a bulky soft dressing.?Patient was then awakened from anesthesia and taken to PACU in stable condition. Disposition: Patient taken to PACU in stable condition recovering well.? Patient will receive appropriate discharge instructions as well as pain medication postoperatively.? We will follow-up with me in the office in 2 weeks.? Patient understands agrees with current plan.? All questions answered.? He understands if any questions or concerns and contact the office for follow-up appointment..
== END 2022-11-29 12:40 | disposition home or self-care (01) ==
PROVIDERS: PCP Nurse Practitioner Family; Visit Provider Student in an Organized Health Care Education/Training Program
PROC: (CPT 64721; principal; 2022-11-29 07:45)
PROC: (CPT 64718; 2022-11-29 07:45)
DX: G56.01 Carpal tunnel syndrome, right upper limb (principal); G56.21 Lesion of ulnar nerve, right upper limb
CPT/HCPCS: 64718; 64721; J0131; J0690; J1100; J1885; J2405; J2704; J2795; J3010; J7030

== ENCOUNTER → 2022-12-13 07:13 | Outpatient (BNVA) | payer MEDICARE, SELFPAY | PROVIDERS: PCP Nurse Practitioner Family; Visit Provider Student in an Organized Health Care Education/Training Program | DX: Z98.890 Other specified postprocedural states (principal); G56.23 Lesion of ulnar nerve, bilateral upper limbs; G56.03 Carpal tunnel syndrome, bilateral upper limbs | CPT/HCPCS: 99214 ==

== ENCOUNTER 2023-01-06 07:13 | Day surgery (SDC) | payer MEDICARE, SELFPAY ==
[2023-01-06] VITALS (10 sets, daily range): BP systolic 129–154; BP diastolic 58–76; PULSE 69–88; RESP 16–20; TEMP 36.5–36.7; O2SAT 94–98
[2023-01-06] MEDS: acetaminophen 1,000 MG/100 ML PIGGYBACK 400 MG IV (07:35)
[2023-01-06] MEDS: ketorolac 30 mg/mL INJ IVP (07:44)
[2023-01-06] MEDS: sodium chloride 0.9% 1,000 ML 30 ML IV (07:46)
--- NOTE | 2023-01-06 08:10 | W.PM.OPSUD ---
Surgery/Procedure H&P Update DATE OF PROCEDURE: January 06, 2023 DATE H&P PERFORMED: 12/13/22 CHANGES TO PREVIOUS DOCUMENTATION: No change in HPI from 12/13/2022. Through shared decision making and reviewing of his nerve studies as well as clinical examination he like to proceed with a left carpal tunnel release as well as a left cubital tunnel release with possible ulnar nerve transposition we talked about this in detail symptomatic esposito he does have some small finger decreased sensation and since he has a positive nerve study with ulnar nerve entrapment at the elbow and he did well with his right carpal tunnel release and right cubital tunnel release on the right side he like to proceed with the exact same thing on the left side. We talked about this in detail he understands risk benefits complication alternatives surgery wants proceed with surgical intervention of left carpal tunnel release, left cubital tunnel release with possible ulnar nerve transposition. All questions answered. PREOP DIAGNOSIS: Left Carpal Tunnel syndrome, left cubital tunnel syndrome PRIMARY INDICATION FOR PROCEDURE: Left carpal tunnel syndrome, left cubital tunnel syndrome PLANNED PROCEDURE: Operation Date: 01/06/23 08:55 Proposed Procedures p LEFT CARPAL TUNNEL RELEASE 14829, G56.00(Left) - Quentin Gonzales DO s Cubital tunnel release wth possible ulnar nerve nerve transposition 72648(Left) - Quentin Gonzales DO
[2023-01-06] MEDS: ceFAZolin 2,000 MG in sodium chloride 0.9% (plus) 50 ML 100 MG IV (09:04)
[2023-01-06] MEDS: lidocaine-epi 1% 20 mL INJ INJECTION (09:30)
[2023-01-06] MEDS: ROPivacaine 0.5% SDV 30 mL 150 MG INJECTION (09:31)
--- NOTE | 2023-01-06 09:39 | PM.OP2 ---
Brief Operative Note Date of procedure: 01/06/23 Pre-op diagnosis: Left carpal tunnel syndrome, left cubital tunnel syndrome Post-op diagnosis: same Procedure Done: Left carpal tunnel release Left cubital tunnel release (ulnar nerve decompression at the elbow) Surgeon: Quentin Gonzales Estimated blood loss (mL): 10 Complications: None Post-op Plan: Patient taken to PACU in stable condition recovering well. Pain controlled. Dressings on in place clean dry and intact patient able to wiggle fingers. Brisk capillary refill less than 2 seconds patient to follow-up in the orthopedic office in 2 weeks has appropriate discharge directions as well as pain medication postoperatively. Condition: stable Disposition: same day Coding Level of Care Code Acute Code for Kam Boo
--- NOTE | 2023-01-06 09:40 | P.OP_ITS ---
Operative Report Date of procedure: January 06, 2023 Pre-op diagnosis: Preop Diagnosis Left Carpal Tunnel syndrome, left cubital tunnel syndrome [employer] Station Mechanic: Ed Gonzales PA-C The JAIMIE was necessary for the execution of this case for assistance in protection of neurovascular structures as well as positioning of the arm for assistance with the procedure as well as assistance in wound closing. Procedure: Postoperative diagnosis: Same Procedure done: Left carpal tunnel release Left cubital tunnel tunnel release (ulnar nerve decompression at elbow) Surgeon: Quentin Gonzales DO Estimated blood loss: 10 mL Tourniquet 20 minutes IV fluids: See anesthesia record Complications: None Findings: See operative report narrative Condition: stable Disposition: same day Brief History: Patient's been seen and worked up in the outpatient setting and findings consistent with preoperative diagnosis.? Patient has left carpal tunnel syndrome as well as left cubital tunnel syndrome which has been worked up in the outpatient setting has physical exam findings consistent with this as well as confirmatory nerve conduction/EMG nerve conduction study consistent with diagnosis. As result through shared decision making agreed to proceed with?left carpal tunnel and left cubital tunnel release we talked about treatment options as far as nonoperative and operative intervention.? Understands risk benefits complication alternatives surgical nonsurgical treatment options.? Understanding his risks he agrees to proceed with surgical intervention. Understanding these risks he agrees to proceed with surgery.? Consent obtained in office. Procedure: Patient seen evaluate in the preoperative holding area.? Consent was reviewed and signed with patient.? Correct extremity marked.? Patient seen evaluated by anesthesia department once cleared for surgery was then taken back to the operative suite placed in supine position all bony prominences well-padded patient properly secured to bed.? Left upper extremity placed onto armboard.? Nonsterile tourniquet applied left upper arm.? Patient then underwent anesthesia per the anesthesia department.? Patient's left upper extremity was then prepped and draped in standard orthopedic fashion.? Final timeout performed.? Patient received appropriate preoperative antibiotics. Esmarch was used exsanguinate the left upper extremity.? Tourniquet was insufflated to 250 mmHg. I started with the carpal tunnel release first.? I made a standard open carpal tunnel release starting with the distal most extent in the palm at the Corrigan's cardinal line and the incision line was made in line with the fourth ray and ended just distal to the wrist crease.? Sharp scalpel incision was made through skin and subcutaneous tissue I then utilizing self retainer then began to dissect with dissection scissors split longitudinally the palmar fascia.? Next I then utilizing my physician's assistant Yu retractors subsequently utilizing scalpel feathered through the palmaris brevis as well as through the transverse carpal ligament distally.? Once I encountered the floor of the transverse carpal ligament and entered into the carpal tunnel I then switched to dissection scissors.? Carefully released the distal extent of the transverse carpal ligament to the palmar fat.? Care was to protect the recurrent branch and not injured this during this part of the case.? Next I then placed a [place] underneath the transverse carpal ligament proximally to protect the nerve in the carpal tunnel contents.? I then utilized a nasal speculum proximally to clear the subcutaneous fat off of the transverse carpal ligament for direct visualization. And then I subsequently under loupe magnification utilize my dissection scissors to release the transverse carpal ligament into the antebrachial fascia under direct visualization with care to keep my scissors with a curved ulnarly away from the palmar cutaneous branch.? The transverse carpal was then completely decompressed proximally and a [place] was then placed both distally and proximally throughout the carpal tunnel and had complete decompression of the nerve.? The nerve did appear to have hourglass shape as it went through the carpal tunnel.? With significant irritation noted around the nerve.? No masses were noted within the contents of the carpal tunnel.? This completed the carpal tunnel release and then I subsequently irrigated the wound bed and placed a wet Ray-Cheko into the incision for later closure. Next marked out the landmarks of the medial epicondyle and olecranon and made a curvilinear incision following the course of the ulnar nerve at the medial aspect of the elbow.? Sharp scalpel incision was made through skin and subcutaneous tissue.? Next I switched to Littler dissection scissors and spread in plane of the medial antebrachial cutaneous nerve branching which was protected throughout this part of the dissection.? Then I directly came down over the fascia and identified the 2 heads of the FCU fascia and split this in the middle and subsequently identified my ulnar nerve distally.? This was then completely released distally under direct visualization and loupe magnification.? Once the nerve was then identified I then subsequently tracked this proximally and released this through Das's ligament as well as complete decompression of the nerve proximally all the way past the intermuscular septum.? The nerve was completely released and decompressed both proximally and distally.? Ulnar nerve neurolysis performed and completed both proximally and distally with dissection scissors.? I then took the elbow through range of motion and there was no instability or subluxating of the ulnar nerve.? This completed cubital tunnel release.? Next the wound bed was thoroughly irrigated.? Tourniquet was deflated.? Hemostasis was satisfactory at the cubital tunnel release surgery site. I then inspected the carpal tunnel incision and this was found to have satisfactory hemostasis and all this was maintained through bipolar electrocautery.? At this point time I sequentially closed cubital tunnel site with 3-0 Vicryl suture in a running horizontal mattress nylon stitch.? ? The carpal tunnel release surgery was then closed in standard interrupted mattress fashion.? Dressing was Xeroform 4 x 4's ABD Curlex soft roll and an Marcin wrap has a bulky soft dressing. Patient was then awakened from anesthesia and taken to PACU in stable condition. Disposition: Patient taken to PACU in stable condition recovering well.? Patient will receive appropriate discharge instructions as well as pain medication postoperatively.? We will follow-up with me in the office in 2 weeks.? Patient understands agrees with current plan.? All questions answered.? He understands if any questions or concerns and contact the office for follow-up appointment.
--- NOTE | 2023-01-06 09:58 | PM.PACU ---
PACU note Narrative: Patient is an 87-year-old male who just underwent left carpal tunnel nerve release and left cubital tunnel Ulnar nerve release. Patient has pain along with Marcin wrap around left arm dry and in place. He is awake, alert somewhat responsive here in PACU as he comes out of generalized anesthesia.Patient has good perfusion to fingers of left hand. He has residual post-op paresthesia due to local anesthetic. Exam: awake Disposition: discharged
[2023-01-06] MEDS: HYDROcodone-acetaminophen 5-325 mg Tablet 1 TAB PO (10:41)
--- NOTE | 2023-01-06 16:58 | ANE.PACU2 ---
Inpatient post-anesthesia follow up: Airway intact: Yes Vital signs: Temperature 97.7 F Pulse Rate 78 Respiratory Rate 18 Blood Pressure 145/67 Pulse Oximetry 94 Oxygen Delivery Me thod Room Air Oxygen Flow Rate 6 Fraction of Inspir ed Oxygen Hydration adequate: Yes Nausea and vomiting: No Pain level: 2 Mental status: Baseline
== END 2023-01-06 11:00 | disposition home or self-care (01) ==
PROVIDERS: PCP Nurse Practitioner Family; Visit Provider Student in an Organized Health Care Education/Training Program
PROC: (CPT 64721; principal; 2023-01-06 08:45)
PROC: (CPT 64718; 2023-01-06 08:45)
DX: G56.02 Carpal tunnel syndrome, left upper limb (principal); G56.22 Lesion of ulnar nerve, left upper limb; E78.2 Mixed hyperlipidemia; Z79.899 Other long term (current) drug therapy; Z79.01 Long term (current) use of anticoagulants; Z86.711 Personal history of pulmonary embolism
CPT/HCPCS: 64718; 64721; J0131; J0690; J1100; J1885; J2405; J2704; J2795; J3010; J7030

== ENCOUNTER 2024-01-30 09:53 | Inpatient (IN) | payer MEDICARE, SELFPAY ==
[2024-01-30] VITALS (7 sets, daily range): BP systolic 136–160; BP diastolic 66–73; PULSE 93–111; RESP 17–20; TEMP 36.5–36.8; O2SAT 91–96; BMI 33.2
--- NOTE | 2024-01-30 09:58 | XR_ITS ---
WS: [id number] Examination: XR acute abdomen series [id number] Reason for Exam: Constipation Date: 01/30/2024 Comparison: Chest film dated 07/16/2013 Findings: The heart is enlarged with a prominent left ventricle. The mediastinum is not widened There is no edema or effusion. There is no consolidation. No free air is seen on the upright film. The stomach is distended with air and fluid. There are abnormally dilated loops of small bowel with air-fluid levels. Limited colonic air is prese nt. Surgical changes to the lumbar spine and right hip are noted XR/XR acute abdomen series [id number] Impression: Findings consistent with small bowel obstruction. CT of the abdomen and pelvis is recommended for further delineation. No free air is appreciated.
[2024-01-30 10:52] LABS: Basophils % 0.2 %; Eosinophils % 0.1 %; Hematocrit 47.7 % (37-53); Lymphocytes % 9.9 %; Mean Corpuscular HGB Conc 33.8 g/dL (30-55); Mean Corpuscular Hemoglobin 30.8 pg (27-33); Mean Corpuscular Volume 91.4 fl (82-101); Monocytes # 0.5 10^3/uL (0.2-0.9); Monocytes % 4.8 %; Neutrophils % 84.6 %; Nucleated Red Blood Cells % 0 %; Platelet Count 224 10^3/cmm (157-399); Red Blood Count 5.22 10^6/uL (3.85-5.65); Red Cell Distribution Width 13.2 % (12.1-15.1); White Blood Count 10.51 10^3/uL (3.29-11.43)
[2024-01-30 11:04] LABS: INR 1.57 (0.8-1.2)
[2024-01-30 11:08] LABS: Alanine Aminotransferase 8 U/L (0-41); Albumin Level 4.1 g/dL (3.5-5.2); Alkaline Phosphatase 136 U/L (40-130); Anion Gap 17.4 (5-19); Aspartate Amino Transferase 17 U/L (0-40); Blood Urea Nitrogen 14 mg/dL (8-23); Calcium 10.6 mg/dL (8.5-10.5); Carbon Dioxide 24 mmol/L (22-29); Chloride 102 mmol/L (98-107); Creatinine Clr Calc Pharmacy 88.6204; Globulin 3.7 g/dL (1.3-4.6); Glucose 127 mg/dL (65-115); Osmolality Calculated 290 mOsm/kg (285-295); Potassium 4.4 mmol/L (3.5-5.1); Sodium 139 mmol/L (136-145); Total Bilirubin 1.6 mg/dL (0.15-1.2); Total Protein 7.8 g/dL (6.6-8.7)
--- NOTE | 2024-01-30 12:11 | XR_ITS ---
WS: [email or web address] Examination: XR chest 1V portable [id number] Reason for Exam: dyspnea/cough Date: 01/30/2024, 12:26 p.m. Comparison: 01/30/2024, 11:06 a.m. Findings: There is cardiomegaly. The mediastinum not widened There is no failure or effusion. There is no consolidation. XR/XR chest 1V portable [id number] Impression: There is cardiomegaly without acute lung process.
--- NOTE | 2024-01-30 12:22 | ED_ITS ---
HPI - Abdominal Pain 2 General: Chief Complaint: Abdominal Pain Stated Complaint: constipated Time Seen by Provider: 01/30/24 09:56 History of Present Illness: 88-year-old male presents emergency room complaining of bloating and abdominal distention. His last bowel movement was yesterday. Remote history of laparotomy after a perforation associated with a colonoscopy. He has been very nauseous but has not vomited. He is complaining of worsening abdominal pain and distention. Associated Symptoms: Denies chills, dysuria and fever(s) Related Data Previous Rx's Medication Instructions Recorded PT/OT eval and treat #1 ea 04/26/22 warfarin 1 mg tablet 1 mg PO DAILY #90 tabs 06/05/22 miscellaneous medical supply #1 ea 08/02/22 warfarin 5 mg tablet 5 mg PO DAILY #90 tabs 09/04/22 cholecalciferol (vitamin D3) 1,250 50,000 unit PO .COMPLEX #8 caps 09/05/22 mcg (50,000 unit) capsule alprazolam 0.5 mg tablet 0.5 mg PO BID PRN anxiety 30 days 10/09/22 #60 tabs hydrocodone 5 mg-acetaminophen 325 1 tab PO Q6H PRN pain 7 days #28 12/17/22 mg tablet tabs Allergies Allergy/AdvReac Type Severity Reaction Status Date / Time No Known Allergies Allergy Verified 01/23/23 07:18 Review of Systems 2 Const: Denies: fever(s) or chills Card: Denies: chest pain Resp: Denies: dyspnea GI: Reports: abdominal pain : Denies: dysuria, urinary frequency or urinary urgency Musc: Denies: neck pain or back pain Skin/Breast: Denies: rash PFSH ED 2 PFSH: Medical History Unspecified symptoms and signs involving the genitourinary system Gross hematuria Lower urinary tract symptoms (LUTS) Medication management Urinary symptom or sign Left carpal tunnel syndrome DDD (degenerative disc disease), lumbar Prostate cancer screening Right knee pain Fatigue Lumbar back pain Bilateral pulmonary embolism Melanoma Lumbar radicular pain Bilateral hearing loss H/O deep venous thrombosis Vitamin D deficiency Mixed hyperlipidemia Anticoagulated History of pulmonary embolism Generalized anxiety disorder Surgical History S/P laminectomy Family History Father CAD (coronary artery disease) Brother Cancer Mother Cancer Sister Cancer Denies family history of Diabetes Hypertension Stroke Social History Smoking and tobacco/nicotine status: never used tobacco/nicotine Alcohol intake: never Substance/Drug Use: never Household members: spouse Physical Exam 2 Const: GENERAL APPEARANCE: cooperative ORIENTATION/CONSCIOUSNESS: Yes awake, Yes oriented to person, Yes oriented to place and Yes oriented to time HENMT: COMMON NORMALS: normocephalic, atraumatic and hearing grossly normal bilaterally HEAD & SCALP: normocephalic and atraumatic Resp: COMMON NORMALS: normal respiratory effort, No retractions, No use of accessory muscles and clear to auscultation bilaterally AUSCULTATION: clear to auscultation bilaterally Cardio: COMMON NORMALS: regular rate, regular rhythm and No murmurs present (Cardio) RATE: regular rate RHYTHM: regular rhythm GI: COMMON NORMALS: Soft to palpation and No hepatosplenomegaly present I NSPECTION: Yes abdominal distension AUSCULTATION: Yes Hypoactive bowel sounds present PALPATION: Yes Soft to palpation, No Tenderness to palpation present (GI), No Guarding due to palpation present (GI) and Yes No hepatosplenomegaly present PERCUSSION: tympanic to percussion Extremity: COMMON NORMALS: normal to inspection, capillary refill normal, no clubbing, cyanosis or edema, no calf tenderness and no pedal edema Neuro: SENSORIUM/ORIENTATION: Yes oriented to person, Yes oriented to place and Yes oriented to time Skin: COMMON NORMALS: no rashes or lesions noted GENERAL SKIN EXAM: no rashes or lesions noted Course 2 Vital Signs: Vital signs: Vital Signs Temperature 97.7 F 01/30/24 17:15 Pulse Rate 104 H 01/30/24 17:15 Respiratory Rate 19 H 01/30/24 17:15 Blood Pressure 160/71 01/30/24 17:15 Pulse Oximetry 94 01/30/24 17:15 Oxygen Delivery Me thod Room Air 01/30/24 17:15 MDM - Abdominal Pain Medical Decision Making Acute abdomen film shows air-fluid levels 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 Miller who is still comfortable monitoring patient here patient will be admitted NG has already been placed medicine is admitting surgery is consulting. Medical Records I reviewed the patient's medical records. Lab Data I reviewed the patient's lab results. 01/30/24 10:44 01/30/24 10:44 Labs/Radiology: Radiology Impressions Chest/Abdomen X-ray 01/30/24 09:58 Impression: Findings consistent with small bowel obstruction. CT of the abdomen and pelvis is recommended for further delineation. No free air is appreciated. Chest X-Ray 01/30/24 13:09 Impression: In the interval an NG tube has been placed. The tip lies just beyond the GE junction and should be advanced several centimeters. Chest/Abdomen/Pelvis CTA 01/30/24 14:14 IMPRESSION: 1. No large ascending thoracic aortic aneurysm measures 5.9 x 6.3 cm with minimal increase in size since 04/26/2022. There is motion artifact especially through the aortic valve plane and the pulmonary arteries. There is no evidence for an acute rupture. With this amount of motion artifact small acute rupture may be obscured. 2. No acute pulmonary embolism. 3. Cardiomegaly. 4. No pulmonary mass or pneumonia identified. 5. High-grade small bowel obstruction. Exact location is not identified. Numerous small bowel loops are markedly dilated with variable density and attenuation within the lumen which may be due to hemorrhage. Site of the obstruction is not apparent. Patient is at risk for ischemic change but at this time no pneumatosis. No free air. 6. High-grade stenosis celiac axis. 7. 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 8. Marked distention of the stomach with fluid. Nasogastric tube is present. 9. Small amount of free fluid in the abdomen and pelvis. Laboratory Results WBC 10.51 10^3/uL (3.29-11.43) 01/30/24 10:44 RBC 5.22 10^6/uL (3.85-5.65) 01/30/24 10:44 Hgb 16.10 g/dL (11.27-16.99) 01/30/24 10:44 Hct 47.7 % (37-53) 01/30/24 10:44 MCV 91.4 fl (82-101) 01/30/24 10:44 MCH 30.8 pg (27-33) 01/30/24 10:44 MCHC 33.8 g/dL (30-55) 01/30/24 10:44 RDW 13.2 % (12.1-15.1) 01/30/24 10:44 Plt Count 224 10^3/cmm (157-399) 01/30/24 10:44 MPV 11.0 fL (7.4-10.4) H 01/30/24 10:44 Neut % (Auto) 84.6 % 01/30/24 10:44 Lymph % (Auto) 9.9 % 01/30/24 10:44 Mobile % (Auto) 4.8 % 01/30/24 10:44 Eos % (Auto) 0.1 % 01/30/24 10:44 Baso % (Auto) 0.2 % 01/30/24 10:44 Neut # (Auto) 8.90 10^3/uL (1.8-7.7) H 01/30/24 10:44 Lymph # (Auto) 1.0 10^3/uL (0.8-4.8) 01/30/24 10:44 Mobile # (Auto) 0.5 10^3/uL (0.2-0.9) 01/30/24 10:44 Eos # (Auto) 0.0 10^3/uL (0.0-0.8) 01/30/24 10:44 Baso # (Auto) 0.0 10^3/uL (0.0-0.1) 01/30/24 10:44 Nucleated RBC % (auto) 0 % 01/30/24 10:44 Nucleated RBCs # 0.0 /100WBC 01/30/24 10:44 PT 19.30 SECONDS (12.1-14.9) H 01/30/24 10:44 INR 1.57 (0.8-1.2) H 01/30/24 10:44 Sodium 139 mmol/L (136-145) 01/30/24 10:44 Potassium 4.4 mmol/L (3.5-5.1) 01/30/24 10:44 Chloride 102 mmol/L (98-107) 01/30/24 10:44 Carbon Dioxide 24 mmol/L (22-29) 01/30/24 10:44 Anion Gap 17.4 (5-19) 01/30/24 10:44 BUN 14 mg/dL (8-23) 01/30/24 10:44 Creatinine 0.7 mg/dL (0.7-1.2) 01/30/24 10:44 GFR Calculation Not Reportable 01/30/24 10:44 Glucose 127 mg/dL (65-115) H 01/30/24 10:44 Calculated Osmolality 290 mOsm/kg (285-295) 01/30/24 10:44 Lactic Acid 1.6 mmol/L (0.5-2.2) 01/30/24 10:44 Calcium 10.6 mg/dL (8.5-10.5) H 01/30/24 10:44 Total Bilirubin 1.6 mg/dL (0.15-1.2) H 01/30/24 10:44 AST 17 U/L (0-40) 01/30/24 10:44 ALT 8 U/L (0-41) 01/30/24 10:44 Alkaline Phosphatase 136 U/L (40-130) H 01/30/24 10:44 Total Protein 7.8 g/dL (6.6-8.7) 01/30/24 10:44 Albumin 4.1 g/dL (3.5-5.2) 01/30/24 10:44 Globulin 3.7 g/dL (1.3-4.6) 01/30/24 10:44 All radiology interpretation(s) finalized by discharge Discharge Plan Discharge Patient Disposition: Admitted As Inpatient Admit Provider: Dex Tineo Clinical Impression: Small bowel obstruction, Ascending aorta dilation Condition: Stable Coding Level of Care Code ED Tire Fabricator for Kam Boo
--- NOTE | 2024-01-30 12:37 | ECG_ITS ---
[facility] Test Date: 2024-01-30 Pat Name: Zeus Arthur Department: Room: Gender: Male Web Development Director: : 1935 Requested By: Alo Hernandez Order Number: [id number] Shawn MD: Joaquina Chavez M.D. Measurements Intervals [place] Rate: 91 P: 55 [place]: 212 QRS: -26 QRSD: 92 T: 51 QT: 368 QTc: 454 Interpretive Statements SINUS RHYTHM WITH FIRST DEGREE AV BLOCK BORDERLINE LEFT AXIS DEVIATION [QRS AXIS < -20] VOLTAGE CRITERIA FOR LVH [MEETS CRITERIA IN ONE OF: R(aVL), S(V1), R(V5), R(V5/V6)+S(V1)] No previous ECG available for comparison Electronically Signed On 01-30-2024 17:04:02 CDT by Joaquina Chavez M.D. [email or web address] ([email or web address]) [id number]
--- NOTE | 2024-01-30 12:54 | CT_ITS ---
WS: [id number] CT angiogram chest, abdomen and pelvis. HISTORY: Abdominal pain with bloating. TECHNIQUE: CT angiogram is performed through the chest, abdomen and pelvis. Sagittal and coronal refo rmats have been submitted. MIP imaging also reviewed. All CT scans at [facility] use at least one of these dose optimization techniques: automated exposure control; mA and/or kV adjustment per p atient size (includes targeted exams where dose is matched to clinical indication); or iterative ino nstruction. Contrast: Omnipaque 350; 95 cc IV. DLP: 1334.85 mGy.cm COMPARISON: 04/26/2022 Chest CTA: Patient has a known large ascending thoracic aortic aneurysm. Aneurysm measures 5.9 x 6.3 cm and is very similar to the prior examination from 04/26/2022 with minimal increase in size which is probably not significant. Mild widening of the sinotubular junction. Sinus of Valsalva appears marlene l. Descending thoracic aorta is tortuous. Maximum diameter of descending aorta is 4.2 cm. There is no dissection. Normal size pulmonary artery. No definite pulmonary emboli. Motion artifact through the central chest . Previously described pulmonary emboli have improved. Chronic appearing, nonocclusive emboli noted o n the LEFT near hilum. No RIGHT heart strain. Moderate cardiomegaly. There is a nasogastric tube pres ent. No mediastinal or hilar adenopathy. CT angiogram abdomen/pelvis: Marked distention of the stomach. There is a nasogastric tube present. T here is also marked fluid distention of the proximal small bowel. The very distal small bowel loops a re not dilated. Several of the small bowel loops within the pelvis are clustered together. The actual site of the obstruction is not evident. Several of the small bowel loops contain increased attenuati on which may be asymmetric wall enhancement or blood. No pneumatosis. Patient is at risk for developi ng pneumatosis. There is diverticular disease in the sigmoid colon. Small amount of free fluid in the pelvis. Early imaging through the liver and spleen are negative. Pancreatic atrophy. No adrenal mass. Mild re nal atrophy. No renal obstruction. Normal size abdominal aorta. Mild vascular calcification. 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 SMA is patent. Prostate gland is enlarged. Extensive prior lumbar fusion. Bones are osteopenic. Prior ORIF RIGHT hip.
[2024-01-30 13:08] LABS: Lactic Sepsis W/Reflex 1.6 mmol/L (0.5-2.2)
--- NOTE | 2024-01-30 13:09 | XR_ITS ---
WS: [id number] Examination: XR chest 1V portable [id number] Reason for Exam: NG placement Date: 01/30/2024, 1:47 p.m. Comparison: 01/30/2024, 12:26 p.m. Findings: The heart is enlarged. The mediastinum is not widened In the interval an NG tube is been placed the tip lies just beyond the GE junction There is no pulmonary edema. There is no large effusion Minimal basilar scarring is suspected without dense consolidation. XR/XR chest 1V portable [id number] Impression: In the interval an NG tube has been placed. The tip lies just beyond the GE marta ction and should be advanced several centimeters.
[2024-01-30] MEDS: LORazepam 2 mg/mL INJ 1 mL 1 MG IVP (13:25)
[2024-01-30] MEDS: cetacaine Spray 5 gm Can 1 SPRAY TOPICAL (13:28)
--- NOTE | 2024-01-30 14:14 | CT_ITS ---
WS: [id number] CT angiogram chest, abdomen and pelvis. HISTORY: Abdominal pain with bloating. TECHNIQUE: CT angiogram is performed through the chest, abdomen and pelvis. Sagittal and coronal refo rmats have been submitted. MIP imaging also reviewed. All CT scans at [facility] use at least one of these dose optimization techniques: automated exposure control; mA and/or kV adjustment per p atient size (includes targeted exams where dose is matched to clinical indication); or iterative ino nstruction. Contrast: Omnipaque 350; 95 cc IV. DLP: 1334.85 mGy.cm COMPARISON: 04/26/2022 Chest CTA: Patient has a known large ascending thoracic aortic aneurysm. Aneurysm measures 5.9 x 6.3 cm and is very similar to the prior examination from 04/26/2022 with minimal increase in size which is probably not significant. Mild widening of the sinotubular junction. Sinus of Valsalva appears marlene l. Descending thoracic aorta is tortuous. Maximum diameter of descending aorta is 4.2 cm. There is no dissection. Normal size pulmonary artery. No definite pulmonary emboli. Motion artifact through the central chest . Previously described pulmonary emboli have improved. Chronic appearing, nonocclusive emboli noted o n the LEFT near hilum. No RIGHT heart strain. Moderate cardiomegaly. There is a nasogastric tube pres ent. No mediastinal or hilar adenopathy. CT angiogram abdomen/pelvis: Marked distention of the stomach. There is a nasogastric tube present. T here is also marked fluid distention of the proximal small bowel. The very distal small bowel loops a re not dilated. Several of the small bowel loops within the pelvis are clustered together. The actual site of the obstruction is not evident. Several of the small bowel loops contain increased attenuati on which may be asymmetric wall enhancement or blood. No pneumatosis. Patient is at risk for developi ng pneumatosis. There is diverticular disease in the sigmoid colon. Small amount of free fluid in the pelvis. Early imaging through the liver and spleen are negative. Pancreatic atrophy. No adrenal mass. Mild re nal atrophy. No renal obstruction. Normal size abdominal aorta. Mild vascular calcification. 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 SMA is patent. Prostate gland is enlarged. Extensive prior lumbar fusion. Bones are osteopenic. Prior ORIF RIGHT hip. CT/CT stephanie ferraro [facility] [id number] IMPRESSION: 1. No large ascending thoracic aortic aneurysm measures 5.9 x 6.3 cm with mini mal increase in size since 04/26/2022. There is motion artifact especially throu gh the aortic valve plane and the pulmonary arteries. There is no evidence for an acute rupture. With this amount of motion artifact small acute rupture may b e obscured. 2. No acute pulmonary embolism. 3. Cardiomegaly. 4. No pulmonary mass or pneumonia identified. 5. High-grade small bowel obstruction. Exact location is not identified. Numer ous small bowel loops are markedly dilated with variable density and attenuatio n within the lumen which may be due to hemorrhage. Site of the obstruction is n ot apparent. Patient is at risk for ischemic change but at this time no pneumat osis. No free air. 6. High-grade stenosis celiac axis. 7. 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 8. Marked distention of the stomach with fluid. Nasogastric tube is present. 9. Small amount of free fluid in the abdomen and pelvis.
[2024-01-30] MEDS: iohexol 350 mg/mL 500 mL Btl (per mL) IV (14:33)
--- NOTE | 2024-01-30 14:59 | P.HP_ITS ---
Providers/Chief Complaint 2 Admitting Physician: Dex Tineo MD Primary Care Provider: DEISI Mills Chief Complaint: constipated History of Present Illness Zeus Arthur is a 88 year old male with history of pulmonary embolism, and aortic dilation presenting to the emergency department with abdominal bloating, nausea for the last several days. No fever, blood in the stool. Occasionally has some blood in the urine. Last bowel movement was a small amount yesterday and he does not believe he is passed any gas since that time. Denies this ever happening before. He does report history of surgery, laparotomy after perforation with a colonoscopy. No recent illness. Does inform me that he is a [employer], and does not want any blood products. Review of Systems 2 General: Reports: 10 or more systems reviewed and unremarkable except in HPI and below Card: Denies: chest pain Resp: Denies: dyspnea GI: Reports: abdominal pain and nausea; Denies: vomiting, hematochezia or melena Medications/Allergies Home Medications Medication Instructions Recorded Confirmed Last Taken Type PT/OT eval and treat #1 ea 04/26/22 01/23/23 Unknown Rx warfarin 1 mg tablet 1 mg PO DAILY #90 tabs 06/05/22 01/23/23 01/03/23 Rx miscellaneous medical supply #1 ea 08/02/22 01/23/23 Unknown Rx warfarin 5 mg tablet 5 mg PO DAILY #90 tabs 09/04/22 01/23/23 01/03/23 Rx cholecalciferol (vitamin D3) 1,250 50,000 unit PO .COMPLEX #8 caps 09/05/22 01/23/23 01/05/23 Rx mcg (50,000 unit) capsule alprazolam 0.5 mg tablet 0.5 mg PO BID PRN anxiety 30 days 10/09/22 01/23/23 01/03/23 Rx #60 tabs hydrocodone 5 mg-acetaminophen 325 1 tab PO Q6H PRN pain 7 days #28 12/17/22 01/23/23 01/05/23 Rx mg tablet tabs Allergies Allergy/AdvReac Type Severity Reaction Status Date / Time No Known Allergies Allergy Verified 01/23/23 07:18 PFSH Acute 2 PFSH: Medical History Anticoagulated Bilateral hearing loss Bilateral pulmonary embolism DDD (degenerative disc disease), lumbar Fatigue Generalized anxiety disorder Gross hematuria H/O deep venous thrombosis History of pulmonary embolism Left carpal tunnel syndrome Lower urinary tract symptoms (LUTS) Lumbar back pain Lumbar radicular pain Medication management Melanoma Mixed hyperlipidemia Prostate cancer screening Right knee pain Unspecified symptoms and signs involving the genitourinary system Urinary symptom or sign Vitamin D deficiency Surgical History S/P laminectomy Family History Father CAD (coronary artery disease) Brother Cancer Mother Cancer Sister Cancer Denies family history of Diabetes Hypertension Stroke Social History Smoking and tobacco/nicotine status: never used tobacco/nicotine Alcohol intake: never Substance/Drug Use: never Household members: spouse Vitals/I&O/Wt Last Vital Signs Temp 98.2 F 01/30/24 10:13 Pulse 102 H 01/30/24 10:13 Resp 20 H 01/30/24 10:13 BP 157/70 01/30/24 10:13 Pulse Ox 96 01/30/24 10:13 O2 Del Method Room Air 01/30/24 10:13 Weight last 48 hrs Weight 117.48 kg Physical Exam 2 Narrative: General exam is an uncomfortable appearing white male, reporting abdominal distention and discomfort. HEENT: Atraumatic and normocephalic. Oropharynx clear Neck is supple no lymphadenopathy thyromegaly Cardiovascular regular rate and rhythm, occasional premature beat, 2/6 systolic murmur Lungs clear no wheezing or crackles Abdomen distended. No significant bowel sounds. exam was deferred Extremities no cyanosis clubbing. Trace edema is present bilaterally. Skin no rash Neuro no focal deficits Data 01/30/24 10:44 01/30/24 10:44 Other Labs: INR 1.57 LFTs demonstrate a bilirubin of 1.6, AST and ALT are normal. Alk phos is 136 Calcium 10.6, albumin normal Urinalysis has not yet been obtained Chest x-ray by my read demonstrates cardiomegaly. Abdominal series demonstrates air-fluid levels in the small bowel consistent with small bowel obstruction CT chest abdomen pelvis demonstrates a large descending thoracic aneurysm without dissection 5.9 x 6.3 cm. A high-grade small bowel obstruction is also noted. High-grade stenosis of the celiac axis is noted. I reviewed this as well. Lactate has been completed and not elevated. Micro: Microbiology 01/30/24 13:54 Blood Culture - Preliminary Blood SPECIMEN COLLECTED A&P Assessment and plan (1) Small bowel obstruction: Patient with evidence of small bowel obstruction Pain control NG to low intermittent suction Surgery consult (2) Ascending aorta dilation: Patient with significant ascending aortic dilation. No evidence of dissection No intervention currently Outpatient follow-up (3) Hypercalcemia: Patient with some evidence of hypercalcemia. This may be secondary to dehydration Fluids Recheck calcium tomorrow (4) Elevated bilirubin: Bilirubin is slightly elevated Repeat tomorrow No evidence of biliary obstruction (5) Gross hematuria: Patient reports history of hematuria in the past Could consider outpatient urology referral Check urinalysis (6) History of pulmonary embolism: Patient with past history of pulmonary embolism Hold Coumadin. Not therapeutic currently. Lovenox DVT prophylaxis dosing currently. Pulmonary embolism was back in 2021. After evaluation during this hospital stay consideration for initiating Eliquis 2.5 mg twice daily on discharge as this would be more preferred than Coumadin. Plan Other medical problems as outlined in past medical history Full code Lovenox will suffice for DVT prophylaxis Protonix for GI prophylaxis Attestations 2 Medical Necessity Statement*: Will need greater than 2 midnight stay for evaluation treatment of small bowel obstruction Diagnoses Small bowel obstruction K56.609 Ascending aorta dilation I77.810 Hypercalcemia E83.52 Elevated bilirubin R17 Gross hematuria R31.0 History of pulmonary embolism Z86.711 Time Spent (min) 56
--- NOTE | 2024-01-30 15:53 | P.CONIM_ITS ---
Providers/Reason For Consult 2 Consulting Physician/Specialty*: Dr. Gallito Miller DO/General Surgery Reason for Consult*: Small bowel obstruction Primary Care Provider: DEISI Mills History of Present Illness History of Present Illness Zeus Arthur is a 88 year old male, with a history of exploratory laparotomy and bowel resection as a result of perforation during colonoscopy in the distant past, presented to the hospital with 3-day history of progressive abdominal pain nausea and inability to pass flatus or have a bowel movement. His abdominal pain is moderate and diffuse. Palpation makes his pain worse. Nothing makes pain better. The pain does not radiate. CT the abdomen pelvis shows a high- grade small bowel obstruction. He denies any hematochezia and/or melena Review of Systems 2 General: Reports: 10 or more systems reviewed and unremarkable except in HPI and below Medications/Allergies Home Medications Medication Instructions Recorded Confirmed Last Taken Type PT/OT eval and treat #1 ea 04/26/22 01/23/23 Unknown Rx warfarin 1 mg tablet 1 mg PO DAILY #90 tabs 06/05/22 01/23/23 01/03/23 Rx miscellaneous medical supply #1 ea 08/02/22 01/23/23 Unknown Rx warfarin 5 mg tablet 5 mg PO DAILY #90 tabs 09/04/22 01/23/23 01/03/23 Rx cholecalciferol (vitamin D3) 1,250 50,000 unit PO .COMPLEX #8 caps 09/05/22 01/23/23 01/05/23 Rx mcg (50,000 unit) capsule alprazolam 0.5 mg tablet 0.5 mg PO BID PRN anxiety 30 days 10/09/22 01/23/23 01/03/23 Rx #60 tabs hydrocodone 5 mg-acetaminophen 325 1 tab PO Q6H PRN pain 7 days #28 12/17/22 01/23/23 01/05/23 Rx mg tablet tabs Allergies Allergy/AdvReac Type Severity Reaction Status Date / Time No Known Allergies Allergy Verified 01/23/23 07:18 PFSH Acute 2 PFSH: Medical History Unspecified symptoms and signs involving the genitourinary system Gross hematuria Lower urinary tract symptoms (LUTS) Medication management Urinary symptom or sign Left carpal tunnel syndrome DDD (degenerative disc disease), lumbar Prostate cancer screening Right knee pain Fatigue Lumbar back pain Bilateral pulmonary embolism Melanoma Lumbar radicular pain Bilateral hearing loss H/O deep venous thrombosis Vitamin D deficiency Mixed hyperlipidemia Anticoagulated History of pulmonary embolism Generalized anxiety disorder Surgical History S/P laminectomy Family History Father CAD (coronary artery disease) Brother Cancer Mother Cancer Sister Cancer Denies family history of Diabetes Hypertension Stroke Social History Smoking and tobacco/nicotine status: never used tobacco/nicotine Alcohol intake: never Substance/Drug Use: never Household members: spouse Vitals/I&O/Wt Last Vital Signs Temp 98.2 F 01/30/24 10:13 Pulse 111 H 01/30/24 15:44 Resp 20 H 01/30/24 10:13 BP 136/70 01/30/24 15:44 Pulse Ox 92 01/30/24 15:44 O2 Del Method Room Air 01/30/24 10:13 Weight last 48 hrs Weight 259 lb Physical Exam 2 Narrative: General : Patient is well developed , no acute distress, oriented x3 Head : Normal cephalic, a-traumatic. Ears : Pinnae and external canal are normal. Hearing is normal. Eyes : PERRLA, Sclera and injection are normal. No conjunctival discharge. Nose : Mucous membranes are without erythema. Throat : buccal mucosa is normal, gums are without significant recession or hypertrophy. Lungs : Equal chest rise bilaterally, no use of accessory muscles, trachea is midline. Cor : Rate and rhythm are normal. Abdomen : Soft, distended, mild diffuse tenderness, no g/r/m Extremities : No edema, no cyanosis or clubbing, dorsalis pedis pulses are present bilaterally, non-tender to palpation of calves. Upper extremities are normal bilaterally. Back : non-tender to palpation, no CVA tenderness. Neuro : CN II - XII intact, Upper and lower extremities have equal and full strength Data 01/30/24 10:44 01/30/24 10:44 Micro: Microbiology 01/30/24 13:54 Blood Culture - Preliminary Blood SPECIMEN COLLECTED A&P Assessment and plan (1) Small bowel obstruction: Plan NGT to LIWS Fluids at 125 cc/h N.p.o. Await return of bowel function If he does not have return of bowel function within the next few days we will have to consider diagnostic laparoscopy versus exploratory laparotomy Medical management per hospitalist Coding Level of Care Code 36651 Diagnoses Small bowel obstruction K56.609
[2024-01-30] MEDS: D5-NS 0.45% + KCL 20 mEq 20 MEQ/1,000 ML BAG 125 MEQ IV (17:50)
[2024-01-30] MEDS: pantoprazole 40 mg SDV IVP (17:51)
[2024-01-30] MEDS: piperacillin-tazobactam 3.375 GM in sodium chloride 0.9% (plus) 50 ML IV (17:51)
[2024-01-30] MEDS: enoxaparin 40 mg/0.4 mL Syringe SUBCUT (19:41)
[2024-01-30 23:53] LABS: Charge for UA Resulting for Rev
[2024-01-31] VITALS (7 sets, daily range): BP systolic 127–161; BP diastolic 64–71; PULSE 85–96; RESP 16–18; TEMP 36.4–37.1; O2SAT 93
[2024-01-31 00:15] LABS: Bacteria Urine TRACE /hpf; RBC Urine 0-4 /hpf (0-2); Squamous Epithelial Cell Urine RARE /hpf (0-5); UA Manual Slide Review YES; Urine Appearance Clear (CLEAR); Urine Color Dark Yellow (Yellow); WBC Urine 0-4 /hpf (0-5)
[2024-01-31 00:16] LABS: Specific Gravity, Urine > 1.099 (1.005-1.030); pH Urine 5 (5-7)
[2024-01-31 00:17] LABS: Bilirubin Urine 1+ (Negative); Blood Urine Trace (Negative); Glucose Urine UA Norm (Normal); Ketones Urine 1+ (Negative); Leukocyte Esterase Urine Negative (Negative); Nitrate Urine Negative (Negative); Protein Urine 1+ (Negative)
[2024-01-31] MEDS: D5-NS 0.45% + KCL 20 mEq 20 MEQ/1,000 ML BAG 125 MEQ IV ×3 (01:36→17:01)
[2024-01-31] MEDS: piperacillin-tazobactam 3.375 GM in sodium chloride 0.9% (plus) 50 ML IV ×3 (01:42→17:01)
[2024-01-31 06:20] LABS: Basophils % 0.2 %; Eosinophils % 0.4 %; Lymphocytes # 1.3 10^3/uL (0.8-4.8); Lymphocytes % 13.2 %; Mean Corpuscular HGB Conc 33.4 g/dL (30-55); Mean Corpuscular Hemoglobin 30.8 pg (27-33); Mean Corpuscular Volume 92.1 fl (82-101); Mean Platelet Volume 11.3 fL (7.4-10.4); Monocytes # 0.8 10^3/uL (0.2-0.9); Monocytes % 8.1 %; Neutrophils # 7.35 10^3/uL (1.8-7.7); Neutrophils % 77.8 %; Nucleated Red Blood Cells % 0 %; Platelet Count 200 10^3/cmm (157-399); Red Blood Count 4.78 10^6/uL (3.85-5.65); Red Cell Distribution Width 13.3 % (12.1-15.1); White Blood Count 9.46 10^3/uL (3.29-11.43)
[2024-01-31 06:44] LABS: Alanine Aminotransferase 6 U/L (0-41); Albumin Level 3.5 g/dL (3.5-5.2); Alkaline Phosphatase 109 U/L (40-130); Aspartate Amino Transferase 11 U/L (0-40); Blood Urea Nitrogen 16 mg/dL (8-23); Calcium 9.7 mg/dL (8.5-10.5); Carbon Dioxide 23 mmol/L (22-29); Chloride 102 mmol/L (98-107); Creatinine Clr Calc Pharmacy 83.5287; Globulin 3.2 g/dL (1.3-4.6); Glucose 136 mg/dL (65-115); Magnesium 2.1 mg/dL (1.7-2.3); Osmolality Calculated 285 mOsm/kg (285-295); Sodium 136 mmol/L (136-145); Total Bilirubin 1.6 mg/dL (0.15-1.2); Total Protein 6.7 g/dL (6.6-8.7)
[2024-01-31] MEDS: phenol oral Spray 177 mL 3 SPRAY MUCOUS MEM (13:37)
--- NOTE | 2024-01-31 15:42 | PC.NURSE ---
Gas Patients stated patient has passed gas.
[2024-01-31] MEDS: pantoprazole 40 mg SDV IVP (17:01)
--- NOTE | 2024-01-31 17:17 | P.PN_ITS ---
Subjective 2 Subjective: Patient reports doing a little better today. He is still having some abdominal pain. Says that he has not been passing much gas, and that his throat is getting a little sore. Medications: Reviewed: Yes Vitals/I&O/Wt Last Vital Signs Temp 98.3 F 01/31/24 15:35 Pulse 92 01/31/24 15:35 Resp 17 01/31/24 15:35 BP 137/71 01/31/24 15:35 Pulse Ox 93 01/31/24 15:35 O2 Del Method Room Air 01/31/24 15:35 01/31/24 01/31/24 01/31/24 06:59 14:59 22:59 Intake Total 1050 / 1100 1004.167 / 1004.167 972.917 / 1977.084 Output Total 200 / 200 1600 / 1600 200 / 1800 Balance 850 / 900 -595.833 / -595.833 772.917 / 177.084 Weight last 48 hrs Weight 228 lb 8 oz Weight 259 lb Physical Exam 2 Narrative: General: Cooperative patient in no apparent distress. Well developed. NG tube is in place. HEENT: Normocephalic, Atraumatic. External ears normal. Nasal passages patent without drainage. MMM. Heart: RRR. Resp: LCTA. No respiratory distress, no use of accessory muscles. Abd: Soft, non-tender. Non-distended. Extremities: No edema. Skin: No rash or lesions on exposed areas. Data 01/31/24 05:25 01/31/24 05:25 Micro: Microbiology 01/30/24 13:54 Blood Culture - Preliminary Blood NEGATIVE TO DATE 01/30/24 05:25 Blood Culture - Preliminary Blood SPECIMEN COLLECTED A&P Assessment and plan (1) Small bowel obstruction: Patient with evidence of small bowel obstruction Pain control NG to low intermittent suction Surgery consult (2) Ascending aorta dilation: Patient with significant ascending aortic dilation. No evidence of dissection No intervention currently Outpatient follow-up (3) Hypercalcemia: Patient with some evidence of hypercalcemia. This may be secondary to dehydration Fluids Recheck calcium tomorrow (4) Elevated bilirubin: Bilirubin is slightly elevated Repeat tomorrow No evidence of biliary obstruction (5) Gross hematuria: Patient reports history of hematuria in the past Could consider outpatient urology referral Check urinalysis (6) History of pulmonary embolism: Patient with past history of pulmonary embolism Hold Coumadin. Not therapeutic currently. Lovenox DVT prophylaxis dosing currently. Pulmonary embolism was back in 2021. After evaluation during this hospital stay consideration for initiating Eliquis 2.5 mg twice daily on discharge as this would be more preferred than Coumadin. Plan PLAN FOR TODAY: Continue close inpatient monitoring. NG tube remains in place. He had out approximately 900 within about 30 minutes this morning. There was some concern that the intermittent suction had malfunction. General surgery is consulted and they are following. Vitals are currently stable. He is afebrile, blood pressure is 120-130 systolic. Oxygen sats are normal. Pain is well-controlled. He remains NPO. Labs were fairly unremarkable. He did have a mild elevation of his bilirubin. He was started on Zosyn for concern of underlying infection, UTI. Blood culture is negative today. Continue pain medications as needed. Will keep NG tube in place until patient has regular flatus, and/or when general surgery is okay with removing. Code Status: Full IVF: D5 NS 20 KCl DVT PPx: Lovenox GI PPx: Protonix ABx: Zosyn Diet: N.p.o. Discharge plan: Home Attestations 2 Medical Necessity Statement*: Will need greater than 2 midnight stay for evaluation treatment of small bowel obstruction Coding Level of Care Code Acute Code for Chg Fwd Moderate MDM includes number and complexity of problems actively addressed during encounter, amount and/or complexity of data reviewed/ordered and described risk of complication, morbidity or mortality of management as documented Diagnoses Small bowel obstruction K56.609 Ascending aorta dilation I77.810 Hypercalcemia E83.52 Elevated bilirubin R17 Gross hematuria R31.0 History of pulmonary embolism Z86.711
--- NOTE | 2024-01-31 17:19 | P.PN_ITS ---
Subjective 2 Subjective: Patient seen and examined. He reports that he still not passing flatus or having bowel movements but his nausea is much improved. There is feculent looking material coming from the NG tube Vitals/I&O/Wt Last Vital Signs Temp 98.3 F 01/31/24 15:35 Pulse 92 01/31/24 15:35 Resp 17 01/31/24 15:35 BP 137/71 01/31/24 15:35 Pulse Ox 93 01/31/24 15:35 O2 Del Method Room Air 01/31/24 15:35 01/31/24 01/31/24 01/31/24 06:59 14:59 22:59 Intake Total 1050 / 1100 1004.167 / 1004.167 972.917 / 1977.084 Output Total 200 / 200 1600 / 1600 200 / 1800 Balance 850 / 900 -595.833 / -595.833 772.917 / 177.084 Weight last 48 hrs Weight 228 lb 8 oz Weight 259 lb Physical Exam 2 Narrative: General: No acute distress, awake alert and oriented x 3 Abdomen: Soft, distended, mild right lower quadrant tenderness, no guarding rebound or masses Data 01/31/24 05:25 01/31/24 05:25 Micro: Microbiology 01/30/24 13:54 Blood Culture - Preliminary Blood NEGATIVE TO DATE 01/30/24 05:25 Blood Culture - Preliminary Blood SPECIMEN COLLECTED A&P Assessment and plan (1) Small bowel obstruction: Plan NGT to LIWS Fluids at 125 cc/h N.p.o. Await return of bowel function If he does not have return of bowel function within the next few days we will have to consider diagnostic laparoscopy versus exploratory laparotomy Medical management per hospitalist Attestations 2 Medical Necessity Statement*: Per primary Coding Level of Care Code 13836 Diagnoses Small bowel obstruction K56.609
[2024-01-31] MEDS: enoxaparin 40 mg/0.4 mL Syringe SUBCUT (19:21)
[2024-02-01] VITALS (8 sets, daily range): BP systolic 129–157; BP diastolic 66–76; PULSE 76–92; RESP 16–19; TEMP 36.7–36.9; O2SAT 92–94
[2024-02-01] MEDS: piperacillin-tazobactam 3.375 GM in sodium chloride 0.9% (plus) 50 ML IV ×3 (01:06→17:09)
[2024-02-01] MEDS: D5-NS 0.45% + KCL 20 mEq 20 MEQ/1,000 ML BAG 125 MEQ IV ×3 (01:06→17:08)
--- NOTE | 2024-02-01 11:19 | P.PN_ITS ---
Subjective 2 Subjective: Patient seen and examined. Pain proved but he reports that he passed a very small amount of flatus overnight Vitals/I&O/Wt Last Vital Signs Temp 98.2 F 02/02/24 04:00 Pulse 77 02/02/24 04:00 Resp 17 02/02/24 04:00 BP 135/63 02/02/24 04:00 Pulse Ox 92 02/02/24 04:00 O2 Del Method Room Air 02/02/24 04:00 02/01/24 02/01/24 02/02/24 14:59 22:59 06:59 Intake Total 1050 / 1050 952.083 / 2002.083 979.167 / 2981.250 Output Total 885 / 885 700 / 1585 Balance 1050 / 1050 67.083 / 1117.083 279.167 / 1396.250 Weight last 48 hrs Weight 229 lb 7 oz Weight 229 lb 1.6 oz Physical Exam 2 Narrative: General: No acute distress, awake alert and orient x 3 Abdomen: Soft, mild distention, mild right lower quadrant tenderness, no guarding rebound or masses Data 02/02/24 03:02 02/02/24 03:02 Micro: Microbiology 01/30/24 05:25 Blood Culture - Preliminary Blood NEGATIVE TO DATE A&P Assessment and plan (1) Small bowel obstruction: Plan NGT to LIWS Fluids at 125 cc/h N.p.o. Await return of bowel function If he does not have return of bowel function within the next few days we will have to consider diagnostic laparoscopy versus exploratory laparotomy Medical management per hospitalist Attestations 2 Medical Necessity Statement*: Per primary Coding Level of Care Code 76805 Diagnoses Small bowel obstruction K56.609
[2024-02-01] MEDS: pantoprazole 40 mg SDV IVP (13:35)
--- NOTE | 2024-02-01 16:21 | P.PN_ITS ---
Subjective 2 Subjective: Patient reports doing a little better today. He is still having some abdominal pain. Patient reports that he has passed gas on a few occasions in the last 24 hours. Complains of having some acid reflux. Continued to have NG output overnight. Medications: Reviewed: Yes Vitals/I&O/Wt Last Vital Signs Temp 98.4 F 02/01/24 15:18 Pulse 76 02/01/24 15:18 Resp 16 02/01/24 15:18 BP 154/66 02/01/24 15:18 Pulse Ox 94 02/01/24 15:18 O2 Del Method Room Air 02/01/24 15:18 02/01/24 02/01/24 02/01/24 06:59 14:59 22:59 Intake Total 1050 / 3077.084 1050 / 1050 Output Total 200 / 1999 675 / 675 Balance 850 / 1171.397 5444 / 1050 -675 / 375 Weight last 48 hrs Weight 229 lb 1.6 oz Weight 228 lb 8 oz Physical Exam 2 Narrative: General: Cooperative patient in no apparent distress. Well developed. NG tube is in place. HEENT: Normocephalic, Atraumatic. External ears normal. Nasal passages patent without drainage. MMM. Heart: RRR. Resp: LCTA. No respiratory distress, no use of accessory muscles. Abd: Soft, non-tender. Non-distended. Extremities: No edema. Skin: No rash or lesions on exposed areas. 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 No evidence of dissection No intervention currently Outpatient follow-up (3) Hypercalcemia: (4) Elevated bilirubin: (5) Gross hematuria: Patient reports history of hematuria in the past Could consider outpatient urology referral Check urinalysis (6) History of pulmonary embolism: Patient with past history of pulmonary embolism Hold Coumadin. Not therapeutic currently. Lovenox DVT prophylaxis dosing currently. Pulmonary embolism was back in 2021. After evaluation during this hospital stay consideration for initiating Eliquis 2.5 mg twice daily on discharge as this would be more preferred than Coumadin. Plan PLAN FOR TODAY: Continue close inpatient monitoring. NG tube remains in place. Continues to have gastric output. Has had approximately 700 out in the last 24 hours. He has been passing flatus on a couple of occasions. General surgery is consulted and they are following. Will continue with IV fluids, low intermittent suction, and surgery has expressed that he would possibly need diagnostic laparoscopy vs. exploratory laparotomy if his bowel function does not improve. Vitals are currently stable. Pain is well-controlled. He is currently NPO. Bilirubin remains mildly elevated to 1.6. Will continue to monitor for now. Remainder of his labs unremarkable. Blood cultures remain negative thus far in his stay. He is on Zosyn for empiric therapy. Continue pain medications as needed. Code Status: Full IVF: D5 NS 20 KCl @ 125. DVT PPx: Lovenox GI PPx: Protonix ABx: Zosyn Diet: N.p.o. Discharge plan: Home Attestations 2 Medical Necessity Statement*: Will need continued hospital stay for evaluation and treatment of small bowel obstruction including NG tube management, IV antibiotics, IV fluids and general surgery consultation. Coding Level of Care Code Acute Code for Chg Fwd Moderate MDM includes number and complexity of problems actively addressed during encounter, amount and/or complexity of data reviewed/ordered and described risk of complication, morbidity or mortality of management as documented Diagnoses Small bowel obstruction K56.609 Ascending aorta dilation I77.810 Hypercalcemia E83.52 Elevated bilirubin R17 Gross hematuria R31.0 History of pulmonary embolism Z86.711
[2024-02-01] MEDS: ondansetron 2 mg/ML SDV 2 mL 4 MG IVP (20:02)
[2024-02-01] MEDS: enoxaparin 40 mg/0.4 mL Syringe SUBCUT (20:02)
[2024-02-02] VITALS: BP 139/63; PULSE 79; RESP 17; TEMP 36.7; O2SAT 93
[2024-02-02] MEDS: piperacillin-tazobactam 3.375 GM in sodium chloride 0.9% (plus) 50 ML IV ×2 (00:34→08:44)
[2024-02-02] MEDS: D5-NS 0.45% + KCL 20 mEq 20 MEQ/1,000 ML BAG 125 MEQ IV ×2 (00:34→08:15)
[2024-02-02 04:00] VITALS: BP 135/63; PULSE 77; RESP 17; TEMP 36.8; O2SAT 92
[2024-02-02 04:11] LABS: Basophils % 0.6 %; Eosinophils # 0.3 10^3/uL (0.0-0.8); Eosinophils % 4.3 %; Hematocrit 39.2 % (37-53); Lymphocytes # 1.3 10^3/uL (0.8-4.8); Lymphocytes % 18.1 %; Mean Corpuscular HGB Conc 32.1 g/dL (30-55); Mean Corpuscular Hemoglobin 30.7 pg (27-33); Mean Corpuscular Volume 95.6 fl (82-101); Mean Platelet Volume 11.6 fL (7.4-10.4); Monocytes # 0.6 10^3/uL (0.2-0.9); Monocytes % 8.1 %; Neutrophils # 4.89 10^3/uL (1.8-7.7); Neutrophils % 68.5 %; Nucleated Red Blood Cells % 0 %; Platelet Count 153 10^3/cmm (157-399); Red Cell Distribution Width 13.5 % (12.1-15.1); White Blood Count 7.14 10^3/uL (3.29-11.43)
[2024-02-02 04:44] LABS: Alanine Aminotransferase < 5 U/L (0-41); Albumin Level 3.4 g/dL (3.5-5.2); Alkaline Phosphatase 85 U/L (40-130); Aspartate Amino Transferase 10 U/L (0-40); Blood Urea Nitrogen 9 mg/dL (8-23); Calcium 9.9 mg/dL (8.5-10.5); Carbon Dioxide 26 mmol/L (22-29); Chloride 103 mmol/L (98-107); Creatinine Clr Calc Pharmacy 83.6852; Globulin 2.9 g/dL (1.3-4.6); Glucose 105 mg/dL (65-115); Magnesium 1.9 mg/dL (1.7-2.3); Osmolality Calculated 285 mOsm/kg (285-295); Phosphorus 2.4 mg/dL (2.5-4.5); Sodium 138 mmol/L (136-145); Thyroid Stimulating Hormone 4.78 uIU/mL (0.27-4.20); Total Bilirubin 1.1 mg/dL (0.15-1.2); Total Protein 6.3 g/dL (6.6-8.7)
[2024-02-02 07:31] VITALS: BP 144/64; PULSE 75; RESP 16; TEMP 36.6; O2SAT 92
--- NOTE | 2024-02-02 09:12 | P.PN_ITS ---
Subjective 2 Subjective: Patient seen and examined. He reports he is passing much more flatus now. Denies any bowel movement, nausea and/or emesis Vitals/I&O/Wt Last Vital Signs Temp 97.8 F 02/02/24 07:31 Pulse 75 02/02/24 07:31 Resp 16 02/02/24 07:31 BP 144/64 02/02/24 07:31 Pulse Ox 92 02/02/24 07:31 O2 Del Method Room Air 02/02/24 07:31 02/01/24 02/02/24 02/02/24 22:59 06:59 14:59 Intake Total 952.083 / 2002.083 979.167 / 2981.250 960.417 / 960.417 Output Total 885 / 885 700 / 1585 200 / 200 Balance 67.083 / 1117.083 279.167 / 1396.250 760.417 / 760.417 Weight last 48 hrs Weight 229 lb 7 oz Weight 229 lb 1.6 oz Physical Exam 2 Narrative: General: No acute distress, awake alert and orient x 3 Abdomen: Soft, mild distention, minimal right lower quadrant tenderness, no guarding rebound or masses Data 02/02/24 03:02 02/02/24 03:02 Micro: Microbiology 01/30/24 05:25 Blood Culture - Preliminary Blood NEGATIVE TO DATE A&P Assessment and plan (1) Small bowel obstruction: Plan DC NG tube Fluids at 125 cc/h Clear liquid diet Await bowel movement If he does not have return of bowel function within the next few days we will have to consider diagnostic laparoscopy versus exploratory laparotomy Medical management per hospitalist Attestations 2 Medical Necessity Statement*: Per primary Coding Level of Care Code 03663 Diagnoses Small bowel obstruction K56.609
--- NOTE | 2024-02-02 10:02 | PC.SOCIAL ---
IMM Update pg 2 of IMM Updated and reviewed w/ patient. Copy provided and copy dated, initialed and placed in chart.
[2024-02-02 11:17] VITALS: BP 151/58; PULSE 82; RESP 16; TEMP 36.9; O2SAT 96
--- NOTE | 2024-02-02 12:09 | P.PN_ITS ---
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 I am expecting postprandial pain Vitals/I&O/Wt Last Vital Signs Temp 98.5 F 02/02/24 11:17 Pulse 82 02/02/24 11:17 Resp 16 02/02/24 11:17 BP 151/58 02/02/24 11:17 Pulse Ox 96 02/02/24 11:17 O2 Del Method Room Air 02/02/24 11:17 02/01/24 02/02/24 02/02/24 22:59 06:59 14:59 Intake Total 952.083 / 2002.083 979.167 / 2981.250 960.417 / 960.417 Output Total 885 / 885 700 / 1585 200 / 200 Balance 67.083 / 1117.083 279.167 / 1396.250 760.417 / 760.417 Weight last 48 hrs Weight 104.071 kg Weight 103.918 kg Physical Exam 2 Narrative: Bowel sounds present None tender abdomen Soft Bloated Abdomen does not show any sign of peritonitis GCS 15 Pleasant Signs of dehydration present Family at the bedside Currently on room air Hemodynamic stable Data 02/02/24 03:02 02/02/24 03:02 A&P Assessment and plan (1) Ascending aorta dilation: (2) H/O deep venous thrombosis: (3) History of pulmonary embolism: (4) Small bowel obstruction: Plan SBO Passing flatus Remove NG tube Continue IV fluids Discontinue IV antibiotics Discontinue opioids and use tramadol Will discharge once patient get a BM Full code Start clear liquids today Appreciate general surgery recommendations DVT prophylaxis on board I have encouraged patient to walk in the hallway as well Attestations 2 Medical Necessity Statement*: Continue management for SBO Diagnoses Ascending aorta dilation I77.810 H/O deep venous thrombosis Z86.718 History of pulmonary embolism Z86.711 Small bowel obstruction K56.609
[2024-02-02] MEDS: dextrose 5%-sod chloride 0.45% 1,000 ML 125 ML IV (12:22)
[2024-02-02 15:16] VITALS: BP 120/71; PULSE 79; RESP 17; TEMP 36.9; O2SAT 92
[2024-02-02] MEDS: pantoprazole 40 mg SDV IVP (17:21)
[2024-02-02] MEDS: sodium chloride 0.9% 1,000 ML 100 ML IV (18:09)
[2024-02-02 19:49] LABS: Free T4 Free Thyroxine 1.14 ng/dL (0.82-1.77)
[2024-02-02 20:00] VITALS: BP 165/57; PULSE 73; RESP 17; TEMP 37.2; O2SAT 92
[2024-02-02] MEDS: enoxaparin 40 mg/0.4 mL Syringe SUBCUT (20:02)
[2024-02-03] VITALS (7 sets, daily range): BP systolic 159–162; BP diastolic 64–71; PULSE 72–87; RESP 16–18; TEMP 36.4–36.8; O2SAT 91–95
[2024-02-03] MEDS: sodium chloride 0.9% 1,000 ML 100 ML IV (04:00)
[2024-02-03 04:57] LABS: Basophils % 0.5 %; Eosinophils # 0.3 10^3/uL (0.0-0.8); Hematocrit 39.6 % (37-53); Lymphocytes # 1.2 10^3/uL (0.8-4.8); Lymphocytes % 19.1 %; Mean Corpuscular HGB Conc 32.8 g/dL (30-55); Mean Corpuscular Hemoglobin 30.8 pg (27-33); Mean Corpuscular Volume 93.8 fl (82-101); Mean Platelet Volume 11.9 fL (7.4-10.4); Monocytes # 0.4 10^3/uL (0.2-0.9); Monocytes % 6.8 %; Neutrophils # 4.31 10^3/uL (1.8-7.7); Neutrophils % 69.3 %; Nucleated Red Blood Cells % 0 %; Platelet Count 185 10^3/cmm (157-399); Red Blood Count 4.22 10^6/uL (3.85-5.65); Red Cell Distribution Width 13.2 % (12.1-15.1); White Blood Count 6.22 10^3/uL (3.29-11.43)
[2024-02-03 05:20] LABS: Anion Gap 12.1 (5-19); Blood Urea Nitrogen 6 mg/dL (8-23); Calcium 9.7 mg/dL (8.5-10.5); Carbon Dioxide 24 mmol/L (22-29); Chloride 103 mmol/L (98-107); Creatinine Clr Calc Pharmacy 84.1861; Glucose 99 mg/dL (65-115); Osmolality Calculated 278 mOsm/kg (285-295); Potassium 4.1 mmol/L (3.5-5.1); Sodium 135 mmol/L (136-145)
--- NOTE | 2024-02-03 09:03 | XRR_ITS ---
PROCEDURE INFORMATION: Exam: XR Abdomen Exam date and time: 02/03/2024 9:16 AM Age: 88 years old Clinical indication: Condition or disease; Intestinal condition; Obstruction; Additional info: Bowel obstruction TECHNIQUE: Imaging protocol: Radiologic exam of the abdomen. Views: Frontal supine view of the abdomen. 1 View. COMPARISON: CT ang ches abdpel [id number] 01/30/2024 2:14 PM FINDINGS: Gastrointestinal tract: There are multiple dilated loops of small bowel within the midabdomen. There is minimal if any gas within the distal colon. Findings suspicious for a small bowel obstruction. No pathologic calcifications are noted. Bones/joints: There are postoperative changes involving the lumbar spine. XR/XR KUB portable [id number] IMPRESSION: 1. Findings suspicious for a small bowel obstruction.
--- NOTE | 2024-02-03 09:30 | P.PN_ITS ---
Subjective 2 Subjective: Patient seen and examined. Reports he is still passing flatus but having significant belching on clear liquid diet Vitals/I&O/Wt Last Vital Signs Temp 97.6 F 02/04/24 04:00 Pulse 79 02/04/24 04:00 Resp 18 02/04/24 04:00 BP 161/69 02/04/24 04:00 Pulse Ox 94 02/04/24 04:00 O2 Del Method Room Air 02/03/24 15:19 02/03/24 02/03/24 02/04/24 14:59 22:59 06:59 Intake Total 753.333 / 753.333 746.667 / 6047.110 1945.75 / 2658.750 Output Total 150 / 150 250 / 400 200 / 600 Balance 603.333 / 603.333 496.667 / 1100.000 958.75 / 2058.750 Weight last 48 hrs Weight 232 lb 7 oz Physical Exam 2 Narrative: General: No acute distress, awake alert and orient x 3 Abdomen: Soft, mild distention, minimal right lower quadrant tenderness, no guarding rebound or masses Data 02/04/24 04:15 02/04/24 04:15 A&P Assessment and plan (1) Small bowel obstruction: Plan Recommend continuing clear liquid diet and fluids for now If he has emesis and NG tube should be placed and he should be made n.p.o. Fluids at 125 cc/h Await bowel movement If he does not have return of bowel function within the next few days we will have to consider diagnostic laparoscopy versus exploratory laparotomy Medical management per hospitalist Attestations 2 Medical Necessity Statement*: Per primary Coding Level of Care Code 55443 Diagnoses Small bowel obstruction K56.609
--- NOTE | 2024-02-03 10:59 | P.PN_ITS ---
Subjective 2 Subjective: Patient was complaining of discomfort on eating, he did not try to eat this morning Repeat KUB showing SBO, I have requested n.p.o. status and NG tube placement, Dr. Miller notified Patient has not vomited No passage of flatus today Continue IV fluids NG tube to low intermittent suction, nurse notified Vitals/I&O/Wt Last Vital Signs Temp 97.6 F 02/03/24 08:36 Pulse 73 02/03/24 08:36 Resp 16 02/03/24 08:36 BP 162/71 02/03/24 08:36 Pulse Ox 94 02/03/24 08:36 O2 Del Method Room Air 02/03/24 08:36 02/02/24 02/03/24 02/03/24 22:59 06:59 14:59 Intake Total 540.833 / 3540.708 985 / 4525.708 Output Total 900 / 1300 400 / 1700 150 / 150 Balance -359.167 / 2240.708 585 / 2825.708 -150 / -150 Weight last 48 hrs Weight 105.432 kg Weight 104.071 kg Physical Exam 2 Narrative: Sluggish bowel sounds Distended abdomen Patient complaining of belching Awake and alert Hemodynamic stable Currently on room air Nonfocal neuroexam S1, S2 no active abdominal pain Data 02/03/24 04:12 02/03/24 04:12 A&P Assessment and plan (1) Ascending aorta dilation: (2) H/O deep venous thrombosis: (3) History of pulmonary embolism: (4) Small bowel obstruction: Plan SBO Patient has failed clear liquid trial N.p.o. today Place NG tube to low intermittent suction Repeat KUB showed SBO No passage of flatus today, patient complaining of discomfort on eating and belching Full code Continue IV fluids Antibiotics discontinued Dr. Miller notified I will hold off on Lovenox DVT prophylaxis in case patient goes for exploratory laparotomy Attestations 2 Medical Necessity Statement*: Continue medical management Diagnoses Ascending aorta dilation I77.810 H/O deep venous thrombosis Z86.718 History of pulmonary embolism Z86.711 Small bowel obstruction K56.609
[2024-02-03] MEDS: ondansetron 2 mg/ML SDV 2 mL 4 MG IVP (14:08)
[2024-02-03] MEDS: TRAMadol 50 mg Tablet PO (14:08)
[2024-02-03] MEDS: pantoprazole 40 mg SDV IVP (16:29)
[2024-02-03] MEDS: sodium chloride 0.9% 1,000 ML 75 ML IV (16:48)
[2024-02-03] MEDS: metoclopramide 5 mg/mL SDV 2 mL 10 MG IVP (18:13)
[2024-02-04] MEDS: ondansetron 2 mg/ML SDV 2 mL 4 MG IVP ×2 (02:53→14:25)
[2024-02-04 04:00] VITALS: BP 161/69; PULSE 79; RESP 18; TEMP 36.4; O2SAT 94
[2024-02-04] MEDS: sodium chloride 0.9% 1,000 ML 75 ML IV ×2 (04:35→16:20)
[2024-02-04 05:10] LABS: Basophils % 0.2 %; Eosinophils # 0.1 10^3/uL (0.0-0.8); Eosinophils % 1.3 %; Hematocrit 40.8 % (37-53); Lymphocytes # 0.9 10^3/uL (0.8-4.8); Lymphocytes % 14.3 %; Mean Corpuscular HGB Conc 32.8 g/dL (30-55); Mean Corpuscular Hemoglobin 30.4 pg (27-33); Mean Corpuscular Volume 92.5 fl (82-101); Mean Platelet Volume 11.6 fL (7.4-10.4); Monocytes # 0.4 10^3/uL (0.2-0.9); Monocytes % 6.2 %; Neutrophils % 77.7 %; Nucleated Red Blood Cells % 0 %; Platelet Count 202 10^3/cmm (157-399); Red Blood Count 4.41 10^6/uL (3.85-5.65); Red Cell Distribution Width 12.8 % (12.1-15.1)
[2024-02-04 05:27] LABS: Lactic Sepsis W/Reflex 1.1 mmol/L (0.5-2.2)
[2024-02-04 05:28] LABS: Blood Urea Nitrogen 9 mg/dL (8-23); Carbon Dioxide 23 mmol/L (22-29); Chloride 101 mmol/L (98-107); Creatinine Clr Calc Pharmacy 84.1861; Glucose 105 mg/dL (65-115); Osmolality Calculated 281 mOsm/kg (285-295); Sodium 136 mmol/L (136-145)
[2024-02-04] MEDS: metoclopramide 5 mg/mL SDV 2 mL 10 MG IVP (07:48)
[2024-02-04 08:00] VITALS: BP 168/56; PULSE 70; RESP 18; TEMP 36.7; O2SAT 95
--- NOTE | 2024-02-04 08:59 | P.PN_ITS ---
Subjective 2 Subjective: Patient seen and examined. He reports that he is no longer passing any flatus and is nauseous and belching but did not vomit Vitals/I&O/Wt Last Vital Signs Temp 98.0 F 02/04/24 08:00 Pulse 70 02/04/24 08:00 Resp 18 02/04/24 08:00 BP 168/56 02/04/24 08:00 Pulse Ox 95 02/04/24 08:00 O2 Del Method Room Air 02/04/24 08:00 02/03/24 02/04/24 02/04/24 22:59 06:59 14:59 Intake Total 746.667 / 3736.688 8771.75 / 2658.750 Output Total 250 / 400 200 / 600 200 / 200 Balance 496.667 / 1100.000 958.75 / 2058.750 -200 / -200 Weight last 48 hrs Weight 232 lb 7 oz Physical Exam 2 Narrative: General: No acute distress, awake alert and oriented x 3 Abdomen: Soft, mildly distended, mild right lower quadrant tenderness, no guarding or rebound Data 02/04/24 04:15 02/04/24 04:15 A&P Assessment and plan (1) Small bowel obstruction: Plan Place NG tube to low remittent suction N.p.o. If he does not start passing flatus again by tomorrow we will have to consider diagnostic laparoscopy versus exploratory laparotomy Medical management per hospitalist Attestations 2 Medical Necessity Statement*: Per primary Coding Level of Care Code 73889 Diagnoses Small bowel obstruction K56.609
--- NOTE | 2024-02-04 09:30 | FL_ITS ---
WS: [id number] LIMITED UPPER GI, SMALL BOWEL FOLLOW THROUGH HISTORY: Small bowel obstruction. TECHNIQUE and FINDINGS: NG tube previously placed had retracted into the gastroesophageal junction. Under fluoroscopic guidan ce a nasogastric tube was advanced into the fundus of the stomach. The stomach was significantly distended and fluid-filled and relatively flaccid. 250 mL of a mixture of thin barium and Gastrografin were instilled into the fundus of the stomach und er fluoroscopic guidance. The patient was returned to the floor and placed in the right lateral decubitus position. An abdomen film 3 hours later demonstrated approximately half of the administered contrast at advanced from the stomach into the the proximal jejunum which were significantly dilated. 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 Approximately 4 hours after the initial abdomen film another abdomen film was obtained which demonstr ated the contrast advanced into the distal jejunal loops within the pelvis. There were dilated small bowel loops distal to the advancement of the contrast. An additional abdominal x-ray was planned for AM however the patient refused the examination and was reportedly leaving AMA. 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 Significant small bowel dilatation within the visualized loops of the jejunum. No contrast had reached the colon 8 hours after the administration of gastric c ontrast through the nasogastric tube.
--- NOTE | 2024-02-04 09:57 | PC.SOCIAL ---
IMM Update pg 2 of IMM Updated and reviewed w/ patient. Copy provided and copy dated, initialed and placed in chart.
--- NOTE | 2024-02-04 10:38 | P.PN_ITS ---
Subjective 2 Subjective: NG tube has been re- placed Patient had 1 episode of emesis overnight General surgery planning for exploratory department by tomorrow if no improvement I have requested PPN Vitals/I&O/Wt Last Vital Signs Temp 98.0 F 02/04/24 08:00 Pulse 70 02/04/24 08:00 Resp 18 02/04/24 08:00 BP 168/56 02/04/24 08:00 Pulse Ox 95 02/04/24 08:00 O2 Del Method Room Air 02/04/24 08:00 02/03/24 02/04/24 02/04/24 22:59 06:59 14:59 Intake Total 746.667 / 9309.527 1079.75 / 2658.750 Output Total 250 / 400 200 / 600 200 / 200 Balance 496.667 / 1100.000 958.75 / 2058.750 -200 / -200 Weight last 48 hrs Weight 105.432 kg Physical Exam 2 Narrative: Bowel sounds sluggish Bloated distended nontender abdomen Patient pleasant and cooperative Currently on room air Nonfocal neuroexam Hypertensive Clinical signs of dehydration S1, S2 Data 02/04/24 04:15 02/04/24 04:15 A&P Assessment and plan (1) Ascending aorta dilation: (2) H/O deep venous thrombosis: (3) History of pulmonary embolism: (4) Small bowel obstruction: Plan SBO NG tube has been reinserted Plan for exploratory laparotomy by tomorrow if no improvement at all Antibiotics discontinued Continue IV fluids Will start PPN patient has not eaten for quite some time Patient is hypertensive will monitor blood pressure for now we will use hydralazine on as-needed basis We did update the daughter that this is a general surgery case, she was asking for transfer for GI services unfortunately this is not an indication for Mr. Arthur to be transferred, she was receptive Holding DVT prophylaxis for now Attestations 2 Medical Necessity Statement*: Continue management of SBO Diagnoses Ascending aorta dilation I77.810 H/O deep venous thrombosis Z86.718 History of pulmonary embolism Z86.711 Small bowel obstruction K56.609
--- NOTE | 2024-02-04 11:11 | PC.NUTR ---
Consult for PPN received. Recommend PPN to begin @ 23 mls/hr and increase 20 mls Q8H until goal rate of 83mls/hr is reached, with standard electrolytes and MV 10 mls/day.
[2024-02-04 12:00] VITALS: BP 169/70; PULSE 71; RESP 17; TEMP 36.8; O2SAT 93
[2024-02-04] MEDS: AA-Dex 4.25%-5% w/Lytes 1,000 ML with multivitamin inj 10 ML 23 ML IV (13:57)
[2024-02-04 16:00] VITALS: BP 159/68; PULSE 87; RESP 18; TEMP 36.6; O2SAT 94
[2024-02-04] MEDS: pantoprazole 40 mg SDV IVP (16:19)
--- NOTE | 2024-02-04 17:54 | PC.NURSE ---
Radiologist called floor with instructions to keep pt on his right side as much as possible to allow passage of Barium through intestines following scan. Also instructed to keep intermittent suction off. Will do another scan at 2000 tonight, and first thing in the AM on 02/04.
[2024-02-04 19:55] VITALS: BP 141/63; PULSE 88; RESP 17; TEMP 36.7; O2SAT 95
[2024-02-04 23:55] VITALS: BP 136/62; PULSE 83; RESP 17; TEMP 36.4; O2SAT 96
[2024-02-05 04:00] VITALS: BP 148/62; PULSE 84; RESP 17; TEMP 36.7; O2SAT 94
[2024-02-05 05:23] LABS: Anion Gap 11.8 (5-19); Blood Urea Nitrogen 12 mg/dL (8-23); Calcium 9.6 mg/dL (8.5-10.5); Carbon Dioxide 25 mmol/L (22-29); Chloride 104 mmol/L (98-107); Creatinine Clr Calc Pharmacy 83.4117; Glucose 101 mg/dL (65-115); Osmolality Calculated 284 mOsm/kg (285-295); Potassium 3.8 mmol/L (3.5-5.1); Sodium 137 mmol/L (136-145)
[2024-02-05] MEDS: sodium chloride 0.9% 1,000 ML 75 ML IV ×2 (05:41→20:33)
[2024-02-05 07:32] VITALS: BP 160/62; PULSE 77; RESP 16; TEMP 36.6; O2SAT 93
[2024-02-05 09:20] VITALS: BP 159/68; PULSE 87; RESP 17; TEMP 36.5; O2SAT 94
--- NOTE | 2024-02-05 09:24 | ECG_ITS ---
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[id number] Requested By: Brendan Marsh Order Number: [id number] Reading MD: BRENDAN SAM Measurements Intervals [place] Rate: 108 P: 220 IA: 224 QRS: -28 QRSD: 95 T: 75 QT: 331 QTc: 444 Interpretive Statements SINUS TACHYCARDIA WITH FIRST DEGREE AV BLOCK WITH OCCASIONAL VENTRICULAR PREMATURE COMPLEXES BORDERLINE LEFT AXIS DEVIATION [QRS AXIS < -20] INCOMPLETE RIGHT BUNDLE BRANCH BLOCK [90+ ms QRS DURATION, TERMINAL R IN V1/V2, 40+ ms S IN I/aVL/V4/V5/V6] LEFT VENTRICULAR HYPERTROPHY AND ST-T CHANGE [VOLTAGE CRITERIA PLUS ST/T ABNORMALITY] Compared to ECG 01/30/2024 12:37:20 Ventricular premature complex(es) now present Incomplete right bundle-branch block now present ST (T wave) deviation now present Sinus rhythm no longer present Electronically Signed On 02-05-2024 11:46:24 CDT by BRENDAN SAM [id number]
--- NOTE | 2024-02-05 09:30 | P.PN_ITS ---
Subjective 2 Subjective: Patient seen and examined. He reports that he is passing flatus. He is demanding to go home. Small bowel follow-through performed yesterday has not yet read. Denies bowel movement Vitals/I&O/Wt Last Vital Signs Temp 97.7 F 02/05/24 09:20 Pulse 87 02/05/24 09:20 Resp 17 02/05/24 09:20 BP 159/68 02/05/24 09:20 Pulse Ox 94 02/05/24 09:20 O2 Del Method Room Air 02/05/24 09:20 02/04/24 02/05/24 02/05/24 22:59 06:59 14:59 Intake Total 317.75 / 1065.25 1344.717 / 2409.967 Output Total 2400 / 2600 425 / 3025 Balance -2082.25 / -1534.75 919.717 / -615.033 Weight last 48 hrs Weight 227 lb 12.8 oz Weight 323 lb 4 oz Physical Exam 2 Narrative: General: No acute distress, awake alert and oriented x 3 Abdomen: Soft, mildly distended, mild right lower quadrant tenderness, no guarding or rebound Data 02/04/24 04:15 02/05/24 04:49 Micro: Microbiology 01/30/24 05:25 Blood Culture - Final Blood NO GROWTH AFTER 5 DAYS 01/30/24 13:54 Blood Culture - Final Blood NO GROWTH AFTER 5 DAYS A&P Assessment and plan (1) Small bowel obstruction: Plan DC NG tube Clear liquid diet Patient was highly encouraged to stay in the hospital until he has bowel movement and tolerates soft food but he is demanding to leave AMA Encouraged the patient to only have liquids for at least 2 days if he does leave and then solid foods for couple of days before eating any steak, toast, crackers, hard vegetables, etc. Medical management per hospitalist Attestations 2 Medical Necessity Statement*: Per primary Coding Level of Care Code 85451 Diagnoses Small bowel obstruction K56.609
[2024-02-05] MEDS: LORazepam 2 mg/mL INJ 1 mL 0.5 MG IVP (09:44)
--- NOTE | 2024-02-05 11:28 | XR_ITS ---
WS: [id number] XR KUB portable [id number] REASON FOR EXAM: sbo FINDINGS: Patient reversed decision concerning leaving the hospital AMA. An abdomen film was obtained which would be 24 hours post instillation of gastric contrast. Compared to the final abdomen film of the prior day of the barium has advanced somewhat further defin ing some loops of small bowel that are not dilated. The contrast has not reached the colon. The stomach remains significantly gaseously distended with residual contrast. No nasogastric tube in place. XR/XR KUB portable [id number] IMPRESSION: Impression some advancement of the contrast in the small bowel defining nondist ended small bowel. No contrast within the colon at this point 24 hours since th e instillation of gastric contrast.
--- NOTE | 2024-02-05 11:30 | P.PN_ITS ---
Subjective 2 Subjective: Patient was upset that he is not going for surgery today, he is endorsing passage of flatus, no bowel movement yet, NG tube was removed, when I evaluated the patient he was very upset, I requested pulse ox which showed his heart rate to be around 130, requested EKG which showed sinus tachycardia heart rate 108, heart rate improved within few minutes after we did the EKG, I gave him IV Ativan 0.5 mg only, patient is also endorsing that he is worked up and not happy that he had to stay here in the hospital for 6 days without any surgery Had a detailed family meeting as well, family is very receptive to the fact that we always try conservative management first before making final decision regarding surgical intervention for SBO, Family trying to convince Mr. Arthur to stay and get treated appropriately because he might return to the ER if he starts vomiting at home after leaving AMA Patient and family are well aware that even if he goes to a different hospital they might follow the same process I have convinced patient to try clear liquid diet before he makes his final decision to leave against medical recommendations, he took couple of sips of clear liquid diet, His GI series is still showing signs of SBO We will request KUB to see if the Gastrografin has made to the rectum Dr. Miller has been notified, Vitals/I&O/Wt Last Vital Signs Temp 97.7 F 02/05/24 09:20 Pulse 87 02/05/24 09:20 Resp 17 02/05/24 09:20 BP 159/68 02/05/24 09:20 Pulse Ox 94 02/05/24 09:20 O2 Del Method Room Air 02/05/24 09:20 02/04/24 02/05/24 02/05/24 22:59 06:59 14:59 Intake Total 317.75 / 1065.25 1344.717 / 2409.967 236.25 / 236.25 Output Total 2400 / 2600 425 / 3025 Balance -2082.25 / -1534.75 919.717 / -615.033 236.25 / 236.25 Weight last 48 hrs Weight 103.328 kg Weight 146.624 kg Physical Exam 2 Narrative: Clinically patient does not look extremely dehydrated Distended abdomen nontender, very sluggish bowel sounds Sinus tachycardia Currently on room air Awake and alert GCS 15 Family is at the bedside S1, S2 tachycardia No audible stridor or wheezing Nonfocal neuroexam Anxious appearing NG tube has been removed Data 02/04/24 04:15 02/05/24 04:49 Micro: Microbiology 01/30/24 05:25 Blood Culture - Final Blood NO GROWTH AFTER 5 DAYS 01/30/24 13:54 Blood Culture - Final Blood NO GROWTH AFTER 5 DAYS A&P Assessment and plan (1) Ascending aorta dilation: (2) H/O deep venous thrombosis: (3) History of pulmonary embolism: (4) Small bowel obstruction: Plan SBO Despite use of IV fluids, conservative management and NG tube to low intermittent suction patient has had no success with bowel movement, GI series is still showing no passage of Gastrografin contrast in the rectum, consistent with SBO For now we will continue IV fluids and PPN Patient is willing to stay for now Sinus tachycardia: Patient was very anxious in the morning wanted to leave AMA however willing to stay for appropriate monitoring and treatment, Dr. Miller has been notified Will repeat KUB to see if contrast has reached the rectum because patient is endorsing passage of gas today Continue PPN No need of antibiotics at this point Holding off on DVT prophylaxis with anticoagulating agent: Continue SCDs Will keep patient n.p.o. until get final report of KUB today Continue Protonix Detailed family meeting conducted today Full code Attestations 2 Medical Necessity Statement*: Continue medical management Diagnoses Ascending aorta dilation I77.810 H/O deep venous thrombosis Z86.718 History of pulmonary embolism Z86.711 Small bowel obstruction K56.609
[2024-02-05 11:46] VITALS: BP 163/71; PULSE 89; RESP 17; TEMP 36.7; O2SAT 92
--- NOTE | 2024-02-05 14:26 | P.PN_ITS ---
Subjective 2 Subjective: Patient reports that he is passing flatus again. However small bowel follow- through done yesterday with follow-up x-ray this morning shows continued obstruction. He was made n.p.o. this morning but when I went to see him over lunch to tell him surgery was at 4 PM, I found him drinking a milkshake that his family brought in Vitals/I&O/Wt Last Vital Signs Temp 98.1 F 02/05/24 11:46 Pulse 89 02/05/24 11:46 Resp 17 02/05/24 11:46 BP 163/71 02/05/24 11:46 Pulse Ox 92 02/05/24 11:46 O2 Del Method Room Air 02/05/24 11:46 02/04/24 02/05/24 02/05/24 22:59 06:59 14:59 Intake Total 317.75 / 1065.25 1344.717 / 2409.967 236.25 / 236.25 Output Total 2400 / 2600 425 / 3025 Balance -2082.25 / -1534.75 919.717 / -615.033 236.25 / 236.25 Weight last 48 hrs Weight 227 lb 12.8 oz Weight 323 lb 4 oz Physical Exam 2 Narrative: General: No acute distress, awake alert and oriented x 3 Abdomen: Soft, mildly distended, mild right lower quadrant tenderness, no guarding or rebound Data 02/04/24 04:15 02/05/24 04:49 Micro: Microbiology 01/30/24 05:25 Blood Culture - Final Blood NO GROWTH AFTER 5 DAYS 01/30/24 13:54 Blood Culture - Final Blood NO GROWTH AFTER 5 DAYS A&P Assessment and plan (1) Small bowel obstruction: Plan Clear liquid diet until midnight and then n.p.o. I am going out of town tonight. My partner, Dr. Jasso, is planning to perform a diagnostic laparoscopy, possible exploratory laparotomy, possible bowel resection tomorrow instead of today because the patient drank a milkshake Medical management per hospitalist Attestations 2 Medical Necessity Statement*: Per primary Coding Level of Care Code 89235 Diagnoses Small bowel obstruction K56.609
[2024-02-05] MEDS: AA-Dex 4.25%-5% w/Lytes 1,000 ML with multivitamin inj 10 ML 83 ML IV (15:01)
[2024-02-05 15:16] VITALS: BP 158/65; PULSE 88; RESP 16; TEMP 37.1; O2SAT 91
[2024-02-05] MEDS: pantoprazole 40 mg SDV IVP (16:57)
[2024-02-05 19:56] VITALS: BP 148/69; PULSE 81; RESP 17; TEMP 36.8; O2SAT 93
[2024-02-06] VITALS (16 sets, daily range): BP systolic 137–163; BP diastolic 64–83; PULSE 66–89; RESP 15–20; TEMP 36.4–37.2; O2SAT 90–98
[2024-02-06] MEDS: AA-Dex 4.25%-5% w/Lytes 1,000 ML with multivitamin inj 10 ML 83 ML IV ×2 (04:30→17:27)
[2024-02-06 05:20] LABS: Basophils % 0.5 %; Eosinophils # 0.3 10^3/uL (0.0-0.8); Eosinophils % 5.4 %; Hematocrit 36.4 % (37-53); Lymphocytes # 1.5 10^3/uL (0.8-4.8); Lymphocytes % 24.7 %; Mean Corpuscular HGB Conc 33.2 g/dL (30-55); Mean Corpuscular Volume 93.3 fl (82-101); Mean Platelet Volume 11.3 fL (7.4-10.4); Monocytes # 0.5 10^3/uL (0.2-0.9); Monocytes % 8.3 %; Neutrophils # 3.56 10^3/uL (1.8-7.7); Neutrophils % 60.6 %; Nucleated Red Blood Cells % 0 %; Platelet Count 161 10^3/cmm (157-399); Red Cell Distribution Width 13.2 % (12.1-15.1); White Blood Count 5.88 10^3/uL (3.29-11.43)
[2024-02-06 05:44] LABS: Anion Gap 10.9 (5-19); Blood Urea Nitrogen 12 mg/dL (8-23); Calcium 9.6 mg/dL (8.5-10.5); Carbon Dioxide 26 mmol/L (22-29); Chloride 107 mmol/L (98-107); Creatinine Clr Calc Pharmacy 83.4117; Glucose 99 mg/dL (65-115); Osmolality Calculated 290 mOsm/kg (285-295); Potassium 3.9 mmol/L (3.5-5.1); Sodium 140 mmol/L (136-145)
[2024-02-06] MEDS: sodium chloride 0.9% 1,000 ML 75 ML IV (08:57)
--- NOTE | 2024-02-06 10:04 | P.PN_ITS ---
Subjective 2 Subjective: Patient going with Dr. Jasso for exploratory laparotomy Patient is stating that he is passing gas today Hemodynamically stable hypertensive On room air No active vomiting Vitals/I&O/Wt Last Vital Signs Temp 98.2 F 02/06/24 07:32 Pulse 89 02/06/24 07:32 Resp 15 02/06/24 07:32 BP 152/74 02/06/24 07:32 Pulse Ox 90 02/06/24 07:32 O2 Del Method Room Air 02/06/24 07:32 02/05/24 02/06/24 02/06/24 22:59 06:59 14:59 Intake Total 1236.25 / 1472.50 1010 / 2482.50 1050 / 1050 Output Total 550 / 900 400 / 1300 Balance 686.25 / 572.50 610 / 1182.50 1050 / 1050 Weight last 48 hrs Weight 103.192 kg Weight 103.328 kg Physical Exam 2 Narrative: Sluggish bowel sounds Distended abdomen nontender Pleasant Signs of dehydration improving Pleasant cooperative Sitting at the bedside Nonfocal neuroexam Hypertensive On room air Data 02/06/24 04:45 02/06/24 04:45 Micro: Microbiology 01/30/24 05:25 Blood Culture - Final Blood NO GROWTH AFTER 5 DAYS A&P Assessment and plan (1) Small bowel obstruction: Plan Patient going for exploratory laparotomy today Continue PPN and IV fluids Will continue PPN until patient regains bowel movement after surgery I am using IV hydralazine on as-needed basis for hypertensive emergencies Continue Protonix DVT prophylaxis on hold which can be resumed after surgery roughly 4 hours after the surgery No active pain endorsed by the patient He is full code N.p.o. Attestations 2 Medical Necessity Statement*: Likely will stay until next week Diagnoses Small bowel obstruction K56.609
--- NOTE | 2024-02-06 10:19 | PC.SOCIAL ---
IMM Update pg 2 of IMM updated and reviewed w/ patient. Copy provided and copy dated, initialed and placed in chart.
--- NOTE | 2024-02-06 12:12 | P.PN_ITS ---
Subjective 2 Subjective: Passing some gas, still distended. Some tenderness. Vitals/I&O/Wt Last Vital Signs Temp 98.0 F 02/06/24 11:18 Pulse 85 02/06/24 11:18 Resp 16 02/06/24 11:18 BP 163/78 02/06/24 11:18 Pulse Ox 94 02/06/24 11:18 O2 Del Method Room Air 02/06/24 11:18 02/05/24 02/06/24 02/06/24 22:59 06:59 14:59 Intake Total 1236.25 / 1472.50 1010 / 2482.50 1050 / 1050 Output Total 550 / 900 400 / 1300 Balance 686.25 / 572.50 610 / 1182.50 1050 / 1050 Weight last 48 hrs Weight 227 lb 8 oz Weight 227 lb 12.8 oz Physical Exam 2 Narrative: Chest: Unlabored breathing room air. No lymphadenopathy. Heart: Regular rate and rhythm. Abdomen: Soft, mildly tender, distended. No masses or lymphadenopathy. Data 02/06/24 04:45 02/06/24 04:45 A&P Assessment and plan (1) Small bowel obstruction: Plan 88-year-old male with SBO who has failed conservative management. Have explained the risks and benefits of a diagnostic laparoscopy, possible exploratory laparotomy, possible bowel resection, possible adhesiolysis. He agrees to proceed after having this discussion. Family was also present. Attestations 2 Medical Necessity Statement*: Surgery planned on 02/06/2024 Coding Level of Care Code 18997 Diagnoses Small bowel obstruction K56.609 Time Spent (min) 30
--- NOTE | 2024-02-06 12:12 | W.PM.OPSFHP ---
Same Day Surgery H&P Indication for Procedure/HPI DATE OF PROCEDURE: February 06, 2024 CHIEF COMPLAINT/INDICATIONFOR SURGICAL PROCEDURE: SBO PREOP DIAGNOSIS: SBO PLANNED PROCEDURE: Operation Date: 02/06/24 13:00 Proposed Procedures p Laparoscopy Diagnostic(Not Applicable) - Elijah Jasso MD s Exploratory Laparotomy(Not Applicable) - Elijah Jasso MD s Laparoscopic Small Bowel Resection(Not Applicable) - Elijah Jasso MD See H&P on consultation note by Dr. Miller during this hospital admission Medications/Allergies* Home Medications Medication Instructions Recorded Confirmed Type cholecalciferol (vitamin D3) 1,250 50,000 unit PO .COMPLEX PRN pt 01/31/24 01/31/24 History mcg (50,000 unit) capsule doesnt remember Allergies/Adverse Reactions Allergy/AdvReac Type Severity Reaction Status Date / Time No Known Allergies Allergy Verified 01/23/23 07:18 Current Medications: Generic Name Dose Route Start Last Admin Trade Name Freq PRN Reason Stop Dose Admin Enoxaparin Sodium 40 mg 01/30/24 20:00 02/02/24 20:02 Enoxaparin 40 Mg/0.4 Ml Syringe SUBCUT 40 mg Q24H WILLY Administration Sodium Chloride 1,000 mls @ 75 mls/hr 02/02/24 17:45 02/06/24 08:57 Sodium Chloride 0.9% IV 75 mls/hr .[id number] WILLY Administration Multivitamins 10 ml/ Amino 1,010 mls @ 83 mls/hr 02/04/24 12:30 02/06/24 04:30 Acids/Electrolytes/Dextrose IV 83 mls/hr .[id number] WILLY Administration Ondansetron HCl 4 mg 01/30/24 17:12 02/04/24 14:25 Ondansetron 2 Mg/Ml Sdv 2 Ml IVP 4 mg Q6H PRN Administration vomiting, or N/V if npo Pantoprazole Sodium 40 mg 01/30/24 17:12 02/05/24 16:57 Pantoprazole 40 Mg Sdv IVP 40 mg Q24H WILLY Administration Phenol 3 spray 01/31/24 13:17 01/31/24 13:37 Phenol Oral [place] 177 Ml MUCOUS MEM 3 spray Q2H PRN Administration SORE THROAT Tramadol HCl 50 mg 02/02/24 12:12 02/03/24 14:08 Tramadol 50 Mg Tablet PO 50 mg Q4H PRN Administration MODERATE PAIN Pertinent History/Comorbid Conditions* Medical History (Updated 01/30/24 @ 17:46 by Alo Cheney DO) Unspecified symptoms and signs involving the genitourinary system Gross hematuria Lower urinary tract symptoms (LUTS) Medication management Urinary symptom or sign Left carpal tunnel syndrome DDD (degenerative disc disease), lumbar Prostate cancer screening Right knee pain Fatigue Lumbar back pain Bilateral pulmonary embolism Melanoma Lumbar radicular pain Bilateral hearing loss H/O deep venous thrombosis Vitamin D deficiency Mixed hyperlipidemia Anticoagulated History of pulmonary embolism Generalized anxiety disorder Surgical History (Updated 01/23/23 @ 07:48 by GUCCI Hancock) S/P laminectomy Family History (Updated 10/03/22 @ 10:01 by Cristina Buitrago LPN) CAD (coronary artery disease) Father Cancer Brother Mother Sister Denies family history of Diabetes Hypertension Stroke Social History Smoking and tobacco/nicotine status: never used tobacco/nicotine Alcohol intake: never Substance/Drug Use: never Household members: spouse Pertinent Exam Findings alert and procedure specific exam findings Abdomen soft, diffusely TTP, distended Recommendations Surgery/Procedure today Other Plans: OR today for diagnostic laparoscopy, possible exploratory laparotomy, possible bowel resection Coding Level of Care Code Acute Code for Chg Fwd Time Spent (min) 30
--- NOTE | 2024-02-06 12:16 | P.ANESASSM_ITS ---
Pre-Anesthetic Assessment Height/Weight: Height 1.88 m Weight 103.192 kg Temp Pulse Resp BP Pulse Ox O2 Del Method 98.0 F 85 16 163/78 94 Room Air 02/06/24 11:18 02/06/24 11:18 02/06/24 11:18 02/06/24 11:18 02/06/24 11:18 02/06/24 11:18 Preop Diagnosis: SBO Operation Date: 02/06/24 13:00 Proposed Procedures p Laparoscopy Diagnostic(Not Applicable) - Elijah Jasso MD s Exploratory Laparotomy(Not Applicable) - Elijah Jasso MD s Laparoscopic Small Bowel Resection(Not Applicable) - Elijah Jasso MD Familial anesthetic complications: None Was Beta Cassy taken within 24 hours: N/A Was Clonidine taken within 24 hours: N/A Last intake: Intake Last Liquid Date 02/04/24 Last Solid Date 02/04/24 Social No alcohol and No tobacco Exam alert, oriented x 3, clear to auscultation bilaterally and regular rate & rhythm Airway Mallampati: Class III Dentition: full CV/HEM Peripheral Vascular Disease GI SBO Anesthetic Plan ASA status: 3 Anesthesia: General Risk of > 500 ml blood loss (7ml/kg in children): No Medications/Allergies Home Medications Medication Instructions Recorded Confirmed Last Taken Type miscellaneous medical supply #1 ea 08/02/22 01/31/24 Unknown Rx alprazolam 0.5 mg tablet 0.5 mg PO BID PRN anxiety 30 days 10/09/22 01/31/24 01/25/24 Rx #60 tabs hydrocodone 5 mg-acetaminophen 325 1 tab PO Q6H PRN pain 7 days #28 12/17/22 01/31/24 01/25/24 Rx mg tablet tabs cholecalciferol (vitamin D3) 1,250 50,000 unit PO .COMPLEX PRN pt 01/31/24 01/31/24 Unknown History mcg (50,000 unit) capsule doesnt remember Allergies Allergy/AdvReac Type Severity Reaction Status Date / Time No Known Allergies Allergy Verified 01/23/23 07:18 Current Medications Generic Name Dose Route Start Last Admin Trade Name Freq PRN Reason Stop Dose Admin Enoxaparin Sodium 40 mg 01/30/24 20:00 02/02/24 20:02 Enoxaparin 40 Mg/0.4 Ml Syringe SUBCUT 40 mg Q24H WILLY Administration Sodium Chloride 1,000 mls @ 75 mls/hr 02/02/24 17:45 02/06/24 08:57 Sodium Chloride 0.9% IV 75 mls/hr .[id number] WILLY Administration Multivitamins 10 ml/ Amino 1,010 mls @ 83 mls/hr 02/04/24 12:30 02/06/24 04:30 Acids/Electrolytes/Dextrose IV 83 mls/hr .[id number] WILLY Administration Ondansetron HCl 4 mg 01/30/24 17:12 02/04/24 14:25 Ondansetron 2 Mg/Ml Sdv 2 Ml IVP 4 mg Q6H PRN Administration vomiting, or N/V if npo Pantoprazole Sodium 40 mg 01/30/24 17:12 02/05/24 16:57 Pantoprazole 40 Mg Sdv IVP 40 mg Q24H WILLY Administration Phenol 3 spray 01/31/24 13:17 01/31/24 13:37 Phenol Oral [place] 177 Ml MUCOUS MEM 3 spray Q2H PRN Administration SORE THROAT Tramadol HCl 50 mg 02/02/24 12:12 02/03/24 14:08 Tramadol 50 Mg Tablet PO 50 mg Q4H PRN Administration MODERATE PAIN PFSH Anesthesia Medical History Unspecified symptoms and signs involving the genitourinary system Gross hematuria Lower urinary tract symptoms (LUTS) Medication management Urinary symptom or sign Left carpal tunnel syndrome DDD (degenerative disc disease), lumbar Prostate cancer screening Right knee pain Fatigue Lumbar back pain Bilateral pulmonary embolism Melanoma Lumbar radicular pain Bilateral hearing loss H/O deep venous thrombosis Vitamin D deficiency Mixed hyperlipidemia Anticoagulated History of pulmonary embolism Generalized anxiety disorder Surgical History S/P laminectomy Family History Father CAD (coronary artery disease) Brother Cancer Mother Cancer Sister Cancer Denies family history of Diabetes Hypertension Stroke Social History Smoking and tobacco/nicotine status: never used tobacco/nicotine Alcohol intake: never Substance/Drug Use: never Household members: spouse Data Anesthesia 02/06/24 04:45 02/06/24 04:45 Short CBC 02/06/24 Range/Units 04:45 WBC 5.88 (3.29-11.43) 10^3/uL Hgb 12.10 (11.27-16.99) g/dL Hct 36.4 L (37-53) % MCV 93.3 (82-101) fl Plt Count 161 (157-399) 10^3/cmm Neut % (Auto) 60.6 % Neut # (Auto) 3.56 (1.8-7.7) 10^3/uL BMP 02/05/24 02/06/24 04:49 04:45 Sodium 137 140 Potassium 3.8 3.9 Chloride 104 107 Carbon Dioxide 25 26 BUN 12 12 Creatinine 0.6 L 0.5 L Glucose 101 99 Calcium 9.6 9.6 Cardiac Studies: 2 Echocardiogram 03/15/22 Sestamibi Stress Test (Cardiology) 03/15
[2024-02-06] MEDS: sodium chloride 0.9% 1,000 ML 30 ML IV (13:02)
[2024-02-06] MEDS: ceFAZolin 2,000 mg SDV 2000 MG IVP (13:20)
[2024-02-06] MEDS: BUPivacaine 0.25% INJ 10 mL INJECTION (14:40)
[2024-02-06] MEDS: lidocaine-epi 1% 20 mL INJ INJECTION (14:40)
--- NOTE | 2024-02-06 14:53 | W.PM.BPONFUL ---
Pathology: no specimen Anesthesia: general Complications: none Brief history/preop diagnosis: 88yo male PSH ex lap for iatrogenic colonic perforation following colonoscopy. Pt presented with SBO and did not respond to non operative management. Full operative report: A discussion was had about the risks and benefits of diagnostic laparoscopy, possible exploratory laparotomy/bowel resection/adhesiolysis. The patient consented to proceed with surgery. Patient was brought to the OR table and placed supine. SCDs were applied and functioning before intubation. Preoperative ancef was administered. General anesthesia was induced. A antoine catheter was placed without complications. The abdomen was prepped and draped in the usual sterile fashion. A Yumi trocar was placed at the umbilicus, and I proceeded to inspect the abdomen laparoscopically. I identified a loop of bowel that was dusky as well as adhesions in the right lower quadrant. I proceeded to convert to an exploratory laparotomy. A midline incision was carried out. NGT positioning was confirmed by palpating it in the stomach. I then centered my attention to the right lower quadrant. I noticed multiple adhesive bands causing a mechanical obstruction of the distal ileum. I proceeded with sharp adhesiolysis in the right lower quadrant. The bowel was then ran from ligament of Treitz distally until I reached the cecum. There was a 20cm loop of distal ileum that was dusky. I inspected the bowel closely and after 15 minutes of leaving it in warm normal saline, the bowel pinked up. I was satisfied with the viability of the entirety of the small bowel and therefore decided not to perform a bowel resection. I then briefly inspected the colon in its entirety which was viable, as well as the stomach, duodenum. Inspection of solid organs was also unremarkable. I then proceeded to close the abdomen using 0 looped PDS, and the skin was closed using surgical gerardo. A silver impregnated island dressing was placed over the midline incision. Condition: stable Dispostion: floor
[2024-02-06] MEDS: pantoprazole 40 mg SDV IVP (17:27)
--- NOTE | 2024-02-06 17:40 | ANE.PACU2 ---
Inpatient post-anesthesia follow up: Airway intact: Yes Vital signs: Temperature 98.2 F Pulse Rate 80 Respiratory Rate 16 Blood Pressure 149/74 Pulse Oximetry 94 Oxygen Delivery Me thod Nasal Cannula Oxygen Flow Rate 2 Fraction of Inspir ed Oxygen Hydration adequate: Yes Nausea and vomiting: No Pain level: 1 Mental status: Baseline
[2024-02-06] MEDS: enoxaparin 40 mg/0.4 mL Syringe SUBCUT (20:49)
[2024-02-07] VITALS: BP 143/71; PULSE 78; RESP 17; TEMP 37; O2SAT 96
[2024-02-07 03:11] LABS: Basophils % 0.1 %; Hematocrit 38.7 % (37-53); Lymphocytes # 0.8 10^3/uL (0.8-4.8); Lymphocytes % 7.4 %; Mean Corpuscular HGB Conc 33.1 g/dL (30-55); Mean Corpuscular Hemoglobin 30.6 pg (27-33); Mean Corpuscular Volume 92.6 fl (82-101); Mean Platelet Volume 12.4 fL (7.4-10.4); Monocytes # 0.6 10^3/uL (0.2-0.9); Monocytes % 5.4 %; Neutrophils # 8.86 10^3/uL (1.8-7.7); Neutrophils % 86.6 %; Nucleated Red Blood Cells % 0 %; Platelet Count 158 10^3/cmm (157-399); Red Blood Count 4.18 10^6/uL (3.85-5.65); White Blood Count 10.23 10^3/uL (3.29-11.43)
[2024-02-07 03:34] LABS: Blood Urea Nitrogen 13 mg/dL (8-23); Calcium 9.5 mg/dL (8.5-10.5); Carbon Dioxide 24 mmol/L (22-29); Chloride 107 mmol/L (98-107); Glucose 119 mg/dL (65-115); Osmolality Calculated 287 mOsm/kg (285-295); Sodium 138 mmol/L (136-145)
[2024-02-07 03:40] LABS: Creatinine Clr Calc Pharmacy 83.3616
[2024-02-07 04:00] VITALS: BP 146/61; PULSE 75; RESP 18; TEMP 36.7; O2SAT 94
[2024-02-07] MEDS: sodium chloride 0.9% 1,000 ML 75 ML IV ×2 (04:19→17:13)
[2024-02-07] MEDS: AA-Dex 4.25%-5% w/Lytes 1,000 ML with multivitamin inj 10 ML 83 ML IV (06:37)
[2024-02-07 07:32] VITALS: BP 144/64; PULSE 83; RESP 14; TEMP 37; O2SAT 93
[2024-02-07 11:47] VITALS: BP 153/66; PULSE 73; RESP 14; TEMP 36.7; O2SAT 90
--- NOTE | 2024-02-07 12:02 | P.PN_ITS ---
Subjective 2 Subjective: NG tube about 300 cc Passing some gas No bowel movements Minimal pain Vitals/I&O/Wt Last Vital Signs Temp 98.1 F 02/07/24 11:47 Pulse 73 02/07/24 11:47 Resp 14 02/07/24 11:47 BP 153/66 02/07/24 11:47 Pulse Ox 90 02/07/24 11:47 O2 Del Method Room Air 02/07/24 11:47 O2 Flow Rate 2 02/06/24 20:40 02/06/24 02/07/24 02/07/24 22:59 06:59 14:59 Intake Total 1914.5 / 2964.5 2005 / 4969.5 Output Total 1485 / 1485 800 / 2285 350 / 350 Balance 429.5 / 1479.5 1205 / 2684.5 -350 / -350 Weight last 48 hrs Weight 230 lb 6.4 oz Weight 227 lb 8 oz Physical Exam 2 Narrative: Chest: Unlabored breathing room air. No lymphadenopathy. Heart: Regular rate and rhythm. Abdomen: Soft, mildly tender, distended. No masses or lymphadenopathy. Incision with clean dry dressing. Data 02/07/24 02:12 02/07/24 02:12 A&P Assessment and plan (1) Small bowel obstruction: Plan 88-year-old male admitted with an SBO. POD 1 diagnostic laparoscopy, ex lap, lysis of adhesions. Progressing as expected. Continue NG tube to low continuous suction, IV fluids, correct any electrolyte derangements. Minimize narcotics. Encourage ambulation and sitting on the chair as much as possible. Need to wait for return of bowel function. Attestations 2 Medical Necessity Statement*: N/A Coding Level of Care Code 34940 Diagnoses Small bowel obstruction K56.609 Time Spent (min) 30
--- NOTE | 2024-02-07 15:06 | PM.PN ---
Subjective Subjective: [facility] s/p ex lap for SBO, lysis of adhesions. NG tube 320cc. seen by Dr. rae this AM States he is feeling sore at abdomen. possibly had some gas production via flatulence. NG tube frustrating him. nausea well controlled Medications: Reviewed: Yes Vitals/I&O/Wt Last Vital Signs Temp 98.1 F 02/07/24 11:47 Pulse 73 02/07/24 11:47 Resp 14 02/07/24 11:47 BP 153/66 02/07/24 11:47 Pulse Ox 90 02/07/24 11:47 O2 Del Method Room Air 02/07/24 11:47 O2 Flow Rate 2 02/06/24 20:40 02/07/24 02/07/24 02/07/24 06:59 14:59 22:59 Intake Total 2004 / 4969.5 Output Total 800 / 2285 350 / 350 Balance 1205 / 2684.5 -350 / -350 Weight last 48 hrs Weight 230 lb 6.4 oz Weight 227 lb 8 oz Physical Exam Narrative: pleasant faint bowel sounds, non distended abdomen, tender near surgical site NG tube in place, no signs of bleeding surgical sites C/D/I marlene S1, S2, no murmurs clear to ausculation. no wheezing/crackles/rhonchi on RA Data 02/07/24 16:03 02/07/24 16:03 A&P Assessment and plan (1) Small bowel obstruction: Plan SBO -POD 1. lysis of adhesions -continue NG tube. low continuous suction -continue IVF -issues with PPN and IV nutrition. discuss with pharmacy in AM as wanda to run out of current electrolye package in fluid. likey need to correct individually based on blood work results -continue PPN until pt regains bowel movement -hydralazine PRN for HTN emergencies -continue protonix -minimize narcotics to allow bowel recovery FULL CODE Lovenox 40mg Attestations Medical Necessity Statement*: 2 overnight stays for SBO Coding Level of Care Code 76487 Diagnoses Small bowel obstruction K56.609
[2024-02-07 16:00] VITALS: BP 145/67; PULSE 91; RESP 14; TEMP 36.4; O2SAT 92
[2024-02-07 16:22] LABS: Basophils % 0.3 %; Eosinophils # 0.1 10^3/uL (0.0-0.8); Eosinophils % 1.1 %; Lymphocytes # 1.5 10^3/uL (0.8-4.8); Lymphocytes % 16.9 %; Mean Corpuscular HGB Conc 33.4 g/dL (30-55); Mean Corpuscular Hemoglobin 30.8 pg (27-33); Mean Corpuscular Volume 92.2 fl (82-101); Mean Platelet Volume 11.7 fL (7.4-10.4); Monocytes # 0.7 10^3/uL (0.2-0.9); Monocytes % 7.7 %; Neutrophils # 6.58 10^3/uL (1.8-7.7); Neutrophils % 73.6 %; Nucleated Red Blood Cells % 0 %; Platelet Count 190 10^3/cmm (157-399); Red Blood Count 4.12 10^6/uL (3.85-5.65); White Blood Count 8.95 10^3/uL (3.29-11.43)
[2024-02-07 16:39] LABS: Alanine Aminotransferase 12 U/L (0-41); Albumin Level 3.2 g/dL (3.5-5.2); Alkaline Phosphatase 78 U/L (40-130); Anion Gap 10.7 (5-19); Aspartate Amino Transferase 18 U/L (0-40); Blood Urea Nitrogen 14 mg/dL (8-23); Calcium 9.7 mg/dL (8.5-10.5); Carbon Dioxide 24 mmol/L (22-29); Chloride 106 mmol/L (98-107); Globulin 2.8 g/dL (1.3-4.6); Glucose 109 mg/dL (65-115); Osmolality Calculated 285 mOsm/kg (285-295); Potassium 3.7 mmol/L (3.5-5.1); Sodium 137 mmol/L (136-145)
[2024-02-07] MEDS: pantoprazole 40 mg SDV IVP (17:13)
[2024-02-07 17:22] LABS: Phosphorus 2.1 mg/dL (2.5-4.5)
[2024-02-07] MEDS: [UNRECOGNIZED DRUG - REMARK] 83 ML IV (18:25)
[2024-02-07 20:00] VITALS: BP 161/66; PULSE 88; RESP 16; TEMP 37.1; O2SAT 92
[2024-02-07] MEDS: enoxaparin 40 mg/0.4 mL Syringe SUBCUT (20:46)
[2024-02-08] VITALS: BP 155/71; PULSE 81; RESP 17; TEMP 36.8; O2SAT 95
[2024-02-08 04:00] VITALS: BP 159/67; PULSE 77; RESP 18; TEMP 36.7; O2SAT 94
[2024-02-08] MEDS: sodium chloride 0.9% 1,000 ML 75 ML IV (05:59)
--- NOTE | 2024-02-08 06:36 | PC.NURSE ---
Called pharmacy and spoke with Ian to request another bag of PPN
[2024-02-08] MEDS: [UNRECOGNIZED DRUG - REMARK] 83 ML IV (06:50)
[2024-02-08 08:00] VITALS: BP 150/68; PULSE 84; RESP 15; TEMP 36.7; O2SAT 95
[2024-02-08 12:00] VITALS: BP 135/68; PULSE 94; RESP 16; O2SAT 95
--- NOTE | 2024-02-08 13:16 | P.PN_ITS ---
Subjective 2 Subjective: Patient noted nursing pressure of flatus today Abdomen soft Positive bowel sounds NG to low intermittent suction draining bile Patient is hemodynamically stable Vitals/I&O/Wt Last Vital Signs Temp 98.0 F 02/08/24 08:00 Pulse 94 02/08/24 12:00 Resp 16 02/08/24 12:00 BP 135/68 02/08/24 12:00 Pulse Ox 95 02/08/24 12:00 O2 Del Method Room Air 02/08/24 12:00 O2 Flow Rate 2 02/07/24 19:55 02/07/24 02/08/24 02/08/24 22:59 06:59 14:59 Intake Total 1977.5 / 1977.5 1962.5 / 3940.0 Output Total 625 / 975 1500 / 2475 400 / 400 Balance 1352.5 / 1002.5 462.5 / 1465.0 -400 / -400 Weight last 48 hrs Weight 105.687 kg Weight 104.508 kg Physical Exam 2 Narrative: Resting comfortably Positive bowel sound NG to low intermittent suction Nonfocal neuroexam Hemodynamically stable S1, S2 On room air Data 02/07/24 16:03 02/07/24 16:03 A&P Assessment and plan (1) Small bowel obstruction: Plan Continue PPN along IV fluids Patient has not experienced return of bowel movement, not endorsing passage of flatus today Positive bowel sounds, NG tube already placed to be continued Will follow-up with general surgery recommendations Continue antidepressant regimen and Protonix Full code Attestations 2 Medical Necessity Statement*: Awaiting return of BM Diagnoses Small bowel obstruction K56.609
[2024-02-08 16:00] VITALS: BP 152/65; PULSE 90; RESP 16; TEMP 37; O2SAT 93
--- NOTE | 2024-02-08 16:24 | P.PN_ITS ---
Subjective 2 Subjective: Persistent melena, no hematochezia Belly benign Vitals/I&O/Wt Last Vital Signs Temp 98.0 F 02/08/24 08:00 Pulse 94 02/08/24 12:00 Resp 16 02/08/24 12:00 BP 135/68 02/08/24 12:00 Pulse Ox 95 02/08/24 12:00 O2 Del Method Room Air 02/08/24 12:00 O2 Flow Rate 2 02/07/24 19:55 02/08/24 02/08/24 02/08/24 06:59 14:59 22:59 Intake Total 1962.5 / 3940.0 Output Total 1500 / 2475 400 / 400 Balance 462.5 / 1465.0 -400 / -400 Weight last 48 hrs Weight 233 lb Weight 230 lb 6.4 oz Physical Exam 2 Narrative: Chest: Unlabored breathing room air. No lymphadenopathy. Heart: Regular rate and rhythm. Abdomen: Soft, nontender, nondistended. No masses or lymphadenopathy. Data 02/07/24 16:03 02/07/24 16:03 A&P Assessment and plan (1) GIB (gastrointestinal bleeding): Plan 88-year-old male who presents with melena. EGD showed a bleeding duodenal ulcer which has been addressed with epinephrine. If bleeding recurs may need repeat endoscopy versus IR. Attestations 2 Medical Necessity Statement*: Per attending Coding Level of Care Code 84019 Diagnoses GIB (gastrointestinal bleeding) K92.2 Time Spent (min) 30
--- NOTE | 2024-02-08 16:27 | P.PN_ITS ---
Subjective 2 Subjective: Not passing gas No bowel movements Persistent high NG tube output Distended Vitals/I&O/Wt Last Vital Signs Temp 98.0 F 02/08/24 08:00 Pulse 94 02/08/24 12:00 Resp 16 02/08/24 12:00 BP 135/68 02/08/24 12:00 Pulse Ox 95 02/08/24 12:00 O2 Del Method Room Air 02/08/24 12:00 O2 Flow Rate 2 02/07/24 19:55 02/08/24 02/08/24 02/08/24 06:59 14:59 22:59 Intake Total 1962.5 / 3940.0 Output Total 1500 / 2475 400 / 400 Balance 462.5 / 1465.0 -400 / -400 Weight last 48 hrs Weight 233 lb Weight 230 lb 6.4 oz Physical Exam 2 Narrative: Chest: Unlabored breathing room air. No lymphadenopathy. Heart: Regular rate and rhythm. Abdomen: Soft, nontender, distended. No masses or lymphadenopathy. Incision clean/dry Data 02/07/24 16:03 02/07/24 16:03 A&P Assessment and plan (1) Small bowel obstruction: Plan 88-year-old male status post diagnostic laparoscopy and ex lap, lysis of adhesions. Waiting for return of bowel function. Must keep NG tube to low continuous suction, encourage ambulation, minimize narcotics, correct electrolyte derangements. Attestations 2 Medical Necessity Statement*: Per attending Coding Level of Care Code 03539 Diagnoses Small bowel obstruction K56.609 Time Spent (min) 30
[2024-02-08] MEDS: pantoprazole 40 mg SDV IVP (17:02)
[2024-02-08 20:00] VITALS: BP 148/66; PULSE 78; RESP 16; TEMP 36.9; O2SAT 93
[2024-02-08] MEDS: dextrose 5%-sod chloride 0.45% 1,000 ML 75 ML IV (20:48)
[2024-02-08] MEDS: enoxaparin 40 mg/0.4 mL Syringe SUBCUT (20:48)
[2024-02-09] VITALS: BP 149/68; PULSE 91; RESP 17; TEMP 36.6; O2SAT 94
[2024-02-09 04:00] VITALS: BP 144/70; PULSE 91; RESP 17; TEMP 37; O2SAT 95
[2024-02-09 05:47] LABS: Anion Gap 12.8 (5-19); Blood Urea Nitrogen 11 mg/dL (8-23); Calcium 9.7 mg/dL (8.5-10.5); Carbon Dioxide 23 mmol/L (22-29); Chloride 107 mmol/L (98-107); Glucose 102 mg/dL (65-115); Magnesium 1.9 mg/dL (1.7-2.3); Osmolality Calculated 288 mOsm/kg (285-295); Phosphorus 2.2 mg/dL (2.5-4.5); Potassium 3.8 mmol/L (3.5-5.1); Sodium 139 mmol/L (136-145)
[2024-02-09 07:48] VITALS: BP 122/80; PULSE 85; RESP 16; TEMP 36.9; O2SAT 93
[2024-02-09] MEDS: dextrose 5%-sod chloride 0.45% 1,000 ML 75 ML IV ×2 (08:59→21:59)
--- NOTE | 2024-02-09 09:29 | XRR_ITS ---
PROCEDURE INFORMATION: Exam: XR Abdomen Exam date and time: 02/09/2024 9:39 AM Age: 88 years old Clinical indication: Abdominal pain; Generalized; Additional info: Ileus? TECHNIQUE: Imaging protocol: Radiologic exam of the abdomen. Views: Frontal supine view of the abdomen. 1 View. COMPARISON: CR XR KUB portable [id number] 02/05/2024 12:02 PM FINDINGS: Gastrointestinal tract: Retained contrast material within the small bowel and colon. No evidence of obstruction. Bones/joints: Postop fusion changes XR/XR KUB portable [id number] IMPRESSION: Retained contrast material within the small and large bowel. No evidence of obstruction.
--- NOTE | 2024-02-09 10:16 | PC.SOCIAL ---
IMM Update Pg. 2 of [facility] updated and reviewed with patient, who verbalized understanding, copy provided.
--- NOTE | 2024-02-09 11:41 | P.PN_ITS ---
Subjective 2 Subjective: KUB showing ileus No active obstruction I have encouraged patient to walk in the hallway Will also request nurse to assist him with the walking in the hallway Pharmacy does not have PPN anymore If he remains n.p.o. till tomorrow we might have to switch to TPN and PICC line Continue IV fluids for now Vitals/I&O/Wt Last Vital Signs Temp 98.5 F 02/09/24 07:48 Pulse 85 02/09/24 07:48 Resp 16 02/09/24 07:48 BP 122/80 02/09/24 07:48 Pulse Ox 93 02/09/24 07:48 O2 Del Method Nasal Cannula 02/09/24 07:48 O2 Flow Rate 2 02/09/24 07:48 02/08/24 02/09/24 02/09/24 22:59 06:59 14:59 Intake Total 2004 913.75 / 913.75 Output Total 1025 / 1425 100 / 1525 400 / 400 Balance 980 / 580 -100 / 480 513.75 / 513.75 Weight last 48 hrs Weight 103.674 kg Weight 105.687 kg Physical Exam 2 Narrative: Bowel sounds are present but sluggish No active abdominal pain Surgical site without any active drainage Nonfocal neuroexam Hemodynamically stable Pleasant cooperative Currently on room air NG to low intermittent suction S1, S2 Data 02/07/24 16:03 02/09/24 04:31 A&P Assessment and plan (1) Medication management: (2) Small bowel obstruction: Plan SBO status post total laparotomy Postop ileus Will touch base with general surgery to see if they would like to try prokinetic drugs For now I have encouraged patient to walk in the hallway Continue IV fluids PPN ran out If he remains n.p.o. by tomorrow and not able to get a bowel movement we might have to consider PICC line and TPN Continue IV fluids for now No need of antibiotics Blood pressure under control Continue Protonix DVT prophylaxis covered with Lovenox Full code Attestations 2 Medical Necessity Statement*: Continue medical management Diagnoses Medication management Z79.899 Small bowel obstruction K56.609
[2024-02-09] MEDS: potassium phosphate (mEq K) 40 MEQ in sodium chloride 0.9% (100 ml) 100 ML 27.27 MEQ IV (11:56)
[2024-02-09] MEDS: metoclopramide 5 mg/mL SDV 2 mL IVP (11:57)
[2024-02-09 12:00] VITALS: BP 149/64; PULSE 83; RESP 18; TEMP 36.9; O2SAT 92
--- NOTE | 2024-02-09 15:45 | P.PN_ITS ---
Subjective 2 Subjective: Patient seen and examined. Pain controlled. Still not passing flatus Vitals/I&O/Wt Last Vital Signs Temp 98.4 F 02/10/24 04:00 Pulse 66 02/10/24 04:00 Resp 17 02/10/24 04:00 BP 132/63 02/10/24 04:00 Pulse Ox 96 02/10/24 04:00 O2 Del Method Room Air 02/10/24 04:00 O2 Flow Rate 2 02/09/24 07:48 02/09/24 02/09/24 02/10/24 14:59 22:59 06:59 Intake Total 913.75 / 913.75 1483.5106 / 2397.2606 Output Total 700 / 700 300 / 1000 300 / 1300 Balance 213.75 / 213.75 1183.5106 / 1397.2606 -300 / 1097.2606 Weight last 48 hrs Weight 266 lb 7 oz Weight 228 lb 9 oz Physical Exam 2 Narrative: General: No acute distress, awake alert and oriented x 3 Abdomen: Soft, nondistended, appropriately tender Incision: Intact without erythema or exudate Data 02/07/24 16:03 02/09/24 04:31 A&P Assessment and plan (1) Small bowel obstruction: Plan Patient pulled out his NG tube. Replace if emesis Continue TPN Await return of bowel function Pain control Medical management per hospitalist Attestations 2 Medical Necessity Statement*: Per primary Coding Level of Care Code 35197 Diagnoses Small bowel obstruction K56.609
[2024-02-09 16:00] VITALS: BP 130/61; PULSE 92; RESP 16; TEMP 36.9; O2SAT 95
[2024-02-09] MEDS: pantoprazole 40 mg SDV IVP (18:12)
--- NOTE | 2024-02-09 19:40 | PC.NURSE ---
Notified Dr. Miller patients NG tube is out of patient. Patient did not want NG tube in. Dr. Miller gave orders for Ng not be replaced unless patient vomits. Message was passed to patients night nurse. Patient is also to have an IS at bedside.
[2024-02-09 20:00] VITALS: BP 137/65; PULSE 85; RESP 16; TEMP 36.8; O2SAT 95
[2024-02-09] MEDS: enoxaparin 40 mg/0.4 mL Syringe SUBCUT (21:08)
[2024-02-10] VITALS: BP 142/65; PULSE 78; RESP 17; TEMP 36.9; O2SAT 97
[2024-02-10 04:00] VITALS: BP 132/63; PULSE 66; RESP 17; TEMP 36.9; O2SAT 96
[2024-02-10 06:01] LABS: Anion Gap 10.6 (5-19); Blood Urea Nitrogen 9 mg/dL (8-23); Calcium 9.4 mg/dL (8.5-10.5); Carbon Dioxide 26 mmol/L (22-29); Chloride 107 mmol/L (98-107); Creatinine Clr Calc Pharmacy 89.8622; Glucose 104 mg/dL (65-115); Osmolality Calculated 289 mOsm/kg (285-295); Potassium 3.6 mmol/L (3.5-5.1); Sodium 140 mmol/L (136-145)
[2024-02-10 07:28] VITALS: BP 128/65; PULSE 76; RESP 16; TEMP 36.6; O2SAT 92
[2024-02-10 11:26] VITALS: BP 115/61; PULSE 83; RESP 16; TEMP 36.8; O2SAT 96
--- NOTE | 2024-02-10 13:00 | P.PN_ITS ---
Subjective 2 Subjective: Patient endorsing passing flatus, NG tube removed, currently on clear liquid diet, tolerating well, ambulating, discontinued IV fluids Patient may be able to go home in next 24 to 48 hours depending on bowel movement Vitals/I&O/Wt Last Vital Signs Temp 98.2 F 02/10/24 11:26 Pulse 83 02/10/24 11:26 Resp 16 02/10/24 11:26 BP 115/61 02/10/24 11:26 Pulse Ox 96 02/10/24 11:26 O2 Del Method Room Air 02/10/24 11:26 O2 Flow Rate 2 02/09/24 07:48 02/09/24 02/10/24 02/10/24 22:59 06:59 14:59 Intake Total 1483.5106 / 2397.2606 0 / 0 Output Total 300 / 1000 300 / 1300 Balance 1183.5106 / 1397.2606 -300 / 1097.2606 0 / 0 Weight last 48 hrs Weight 120.854 kg Weight 103.674 kg Physical Exam 2 Narrative: Awake and alert Abdomen soft Bowel sound present Sluggish Awake pleasant nonfocal neuroexam Hemodynamically stable Currently on room air Sitting in a chair without any difficulty Data 02/07/24 16:03 02/10/24 05:20 A&P Assessment and plan (1) Small bowel obstruction: Plan Bowel obstruction status post exploratory laparotomy Postop ileus: Improved NG tube removed Started diet 02/09 Passing flatus Patient may build to go home in next 24 to 48 hours depending on his bowel movement, clinically doing much better, tolerating diet, Discontinue IV fluids Currently patient is on Lovenox for DVT prophylaxis I will discontinue morphine can use tramadol on as-needed basis Attestations 2 Medical Necessity Statement*: Discharge likely next 24 hours Diagnoses Small bowel obstruction K56.609
--- NOTE | 2024-02-10 15:35 | P.DS_ITS ---
Discharge Providers Date of Admission: 01/30/24 16:20 Date of Discharge: February 10, 2024 Attending Provider at Admission: Dex Tineo MD Attending Provider at Discharge: Brendan Marsh MD Primary Care Provider: DEISI Mills Diagnoses at Discharge Discharge Diagnosis (1) Small bowel obstruction: Status: Inactive Reason for Visit Reason for Visit: constipated Hospital Course Hospital Course 88-year-old male who was admitted for management evaluation of SBO, patient was managed conservatively initially with NG tube to low intermittent suction, patient was getting upset and anxious for staying in the hospital for so long, he was trying to leave AMA but with counseling and family effort we were able to keep him in the hospital, initially he was seen by Dr. Miller, we did a Gastrografin GI series which showed persistent bowel obstruction, patient was endorsing passage of flatus, a trial of clear liquid was done which failed, when Dr. Jasso came on service decision was made to proceed with exploratory la parotomy, patient was kept on low intermittent suction NG tube for about 48 hours after surgery, he started passing gas, bowel sounds are sluggish, NGT was discontinued again and he was given clear liquid diet, patient had a bowel movement, he was discharged home with stable hemodynamics. Discharge Data Studies Completed and Pending Completed Studies During Hospitalization Category Date Time Status CT ang ches abdpel 43582/45462 Stat Cat Scan 01/30/24 14:14 Completed [place] upper GI smallbowel series Stat Exams 02/04/24 09:30 Completed XR KUB portable [id number] Stat Exams 02/03/24 09:03 Completed XR KUB portable [id number] Stat Exams 02/05/24 11:28 Completed XR KUB portable [id number] Stat Exams 02/09/24 09:29 Completed XR acute abdomen series [id number] Stat Exams 01/30/24 09:58 Completed XR chest 1V portable [id number] Stat Exams 01/30/24 12:11 Completed XR chest 1V portable [id number] Stat Exams 01/30/24 13:09 Completed Pending at discharge Category Date Time Status Basic Metabolic Panel AM LABS Lab 02/11/24 04:00 Ordered Radiology Impressions Chest/Abdomen X-ray 01/30/24 09:58 Impression: Findings consistent with small bowel obstruction. CT of the abdomen and pelvis is recommended for further delineation. No free air is appreciated. Chest X-Ray 01/30/24 13:09 Impression: In the interval an NG tube has been placed. The tip lies just beyond the GE junction and should be advanced several centimeters. Chest/Abdomen/Pelvis CTA 01/30/24 14:14 IMPRESSION: 1. No large ascending thoracic aortic aneurysm measures 5.9 x 6.3 cm with minimal increase in size since 04/26/2022. There is motion artifact especially through the aortic valve plane and the pulmonary arteries. There is no evidence for an acute rupture. With this amount of motion artifact small acute rupture may be obscured. 2. No acute pulmonary embolism. 3. Cardiomegaly. 4. No pulmonary mass or pneumonia identified. 5. High-grade small bowel obstruction. Exact location is not identified. Numerous small bowel loops are markedly dilated with variable density and attenuation within the lumen which may be due to hemorrhage. Site of the obstruction is not apparent. Patient is at risk for ischemic change but at this time no pneumatosis. No free air. 6. High-grade stenosis celiac axis. 7. 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 8. Marked distention of the stomach with fluid. Nasogastric tube is present. 9. Small amount of free fluid in the abdomen and pelvis. 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 Significant small bowel dilatation within the visualized loops of the jejunum. No contrast had reached the colon 8 hours after the administration of gastric contrast through the nasogastric tube. KUB X-Ray 02/09/24 09:29 IMPRESSION: Retained contrast material within the small and large bowel. No evidence of obstruction. Laboratory Results WBC 8.95 10^3/uL (3.29-11.43) 02/07/24 16:03 RBC 4.12 10^6/uL (3.85-5.65) 02/07/24 16:03 Hgb 12.70 g/dL (11.27-16.99) 02/07/24 16:03 Hct 38.0 % (37-53) 02/07/24 16:03 MCV 92.2 fl (82-101) 02/07/24 16:03 MCH 30.8 pg (27-33) 02/07/24 16:03 MCHC 33.4 g/dL (30-55) 02/07/24 16:03 RDW 13.0 % (12.1-15.1) 02/07/24 16:03 Plt Count 190 10^3/cmm (157-399) 02/07/24 16:03 MPV 11.7 fL (7.4-10.4) H 02/07/24 16:03 Neut % (Auto) 73.6 % 02/07/24 16:03 Lymph % (Auto) 16.9 % 02/07/24 16:03 [place] % (Auto) 7.7 % 02/07/24 16:03 Eos % (Auto) 1.1 % 02/07/24 16:03 Baso % (Auto) 0.3 % 02/07/24 16:03 Neut # (Auto) 6.58 10^3/uL (1.8-7.7) 02/07/24 16:03 Lymph # (Auto) 1.5 10^3/uL (0.8-4.8) 02/07/24 16:03 [place] # (Auto) 0.7 10^3/uL (0.2-0.9) 02/07/24 16:03 Eos # (Auto) 0.1 10^3/uL (0.0-0.8) 02/07/24 16:03 Baso # (Auto) 0.0 10^3/uL (0.0-0.1) 02/07/24 16:03 Nucleated RBC % (auto) 0 % 02/07/24 16:03 Nucleated RBCs # 0.0 /100WBC 02/07/24 16:03 PT 19.30 SECONDS (12.1-14.9) H 01/30/24 10:44 INR 1.57 (0.8-1.2) H 01/30/24 10:44 Sodium 140 mmol/L (136-145) 02/10/24 05:20 Potassium 3.6 mmol/L (3.5-5.1) 02/10/24 05:20 Chloride 107 mmol/L (98-107) 02/10/24 05:20 Carbon Dioxide 26 mmol/L (22-29) 02/10/24 05:20 Anion Gap 10.6 (5-19) 02/10/24 05:20 BUN 9 mg/dL (8-23) 02/10/24 05:20 Creatinine 0.6 mg/dL (0.7-1.2) L 02/10/24 05:20 GFR Calculation Not Reportable 02/10/24 05:20 Glucose 104 mg/dL (65-115) 02/10/24 05:20 Calculated Osmolality 289 mOsm/kg (285-295) 02/10/24 05:20 Lactic Acid 1.1 mmol/L (0.5-2.2) 02/04/24 04:15 Calcium 9.4 mg/dL (8.5-10.5) 02/10/24 05:20 Phosphorus 2.2 mg/dL (2.5-4.5) L 02/09/24 04:31 Magnesium 1.9 mg/dL (1.7-2.3) 02/09/24 04:31 Total Bilirubin 1.0 mg/dL (0.15-1.2) 02/07/24 16:03 AST 18 U/L (0-40) 02/07/24 16:03 ALT 12 U/L (0-41) 02/07/24 16:03 Alkaline Phosphatase 78 U/L (40-130) 02/07/24 16:03 Total Protein 6.0 g/dL (6.6-8.7) L 02/07/24 16:03 Albumin 3.2 g/dL (3.5-5.2) L 02/07/24 16:03 Globulin 2.8 g/dL (1.3-4.6) 02/07/24 16:03 TSH 4.78 uIU/mL (0.27-4.20) H 02/02/24 03:02 Free T4 1.14 ng/dL (0.82-1.77) 02/02/24 03:02 Urine Color Dark yellow (Yellow) A 01/30/24 23:17 Urine Appearance Clear (CLEAR) 01/30/24 23:17 Urine pH 5 (5-7) 01/30/24 23:17 Ur Specific [place] > 1.099 (1.005-1.030) H 01/30/24 23:17 Urine Protein 1+ (Negative) H 01/30/24 23:17 Urine Glucose (UA) Norm (Normal) 01/30/24 23:17 Urine Ketones 1+ (Negative) H 01/30/24 23:17 Urine Blood Trace (Negative) H 01/30/24 23:17 Urine Nitrate Negative (Negative) 01/30/24 23:17 Urine Bilirubin 1+ (Negative) H 01/30/24 23:17 Urine Urobilinogen 1.0 mg/dL (Negative) 01/30/24 23:17 Ur Leukocyte Esterase Negative (Negative) 01/30/24 23:17 Urine RBC 0-4 /hpf (0-2) H 01/30/24 23:17 Urine WBC 0-4 /hpf (0-5) H 01/30/24 23:17 Ur Squamous Epith Cells Rare /hpf (0-5) 01/30/24 23:17 Amorphous Sediment Not Reportable 01/30/24 23:17 Urine Bacteria Trace /hpf (NONE) 01/30/24 23:17 Vitals Last Vital Signs Temp 98.2 F 02/10/24 11:26 Pulse 83 02/10/24 11:26 Resp 16 02/10/24 11:26 BP 115/61 02/10/24 11:26 Pulse Ox 96 02/10/24 11:26 O2 Del Method Room Air 02/10/24 11:26 O2 Flow Rate 2 02/09/24 07:48 Discharge Plan Discharge Patient Disposition: Home Condition: Stable Prescriptions: Continued (DME) miscellaneous medical supply Misc See Rx Instructions .Route Qty: 1 0RF Rx Instructions: As directed alprazolam 0.5 mg tablet 0.5 mg PO BID PRN (Reason: anxiety) 30 Days Qty: 60 3RF Rx Instructions: aware of patient age: benefit has exceeded risk: Dobbs hydrocodone-acetaminophen 5-325 mg tablet 1 tab PO Q6H PRN (Reason: pain) 7 Days Qty: 28 0RF cholecalciferol (vitamin D3) 1,250 mcg (50,000 unit) capsule 50,000 unit PO .COMPLEX PRN (Reason: pt doesnt remember) Rx Instructions: 50,000 units orally Once Weekly Discharge Orders: Discharge Order (Routine); Ordered 02/10/24 Ordered By: Brendan Marsh Referrals: Elijah Jasso MD [Physician] - 02/26/24 10:00 am Lindsay Perla FNP [Primary Care Provider] - 02/17/24 1:40 pm Patient Instructions: Acute Wound Care (DC), Bowel Obstruction (GEN), Exploratory Laparoscopy (GEN), Opioid Safety, Post Anesthesia Care Activity Restrictions/Additional Instructions: No lifting over 15lbs for 6 weeks. Do not soak incisions under water for 2 weeks. Okay to shower regularly. Discharge Attestations Time Spent in Discharge Care*: greater than 30 min Quality Metrics Clinical Quality Measures [ No reported AMI, CVA or VTE this stay] Coding Level of Care Code Acute Code for Chg Fwd Diagnoses Small bowel obstruction K56.609
[2024-02-10 16:00] VITALS: BP 147/78; PULSE 88; RESP 16; TEMP 36.9; O2SAT 98
[2024-02-10 16:38] VITALS: BP 147/78; PULSE 88; RESP 16; TEMP 36.9; O2SAT 98
== END 2024-02-10 17:07 | disposition home or self-care (01) | DRG 357 ==
LOC: ER 12:24 → MEDSURG 16:20
PROVIDERS: Family Medicine; Student in an Organized Health Care Education/Training Program; Admitting Provider Internal Medicine; Emergency Provider Family Medicine; PCP Nurse Practitioner Family; Visit Provider Internal Medicine
PROC: 0DJD0ZZ Inspection of Lower Intestinal Tract, Open Approach (ICD-10-PCS; CPT 49320; principal; 2024-02-06 13:00)
PROC: 0DJD0ZZ Inspection of Lower Intestinal Tract, Open Approach (ICD-10-PCS; CPT 49000; 2024-02-06 13:00)
DX: K56.609 Unspecified intestinal obstruction, unspecified as to partial versus complete obstruction (principal); K91.89 Other postprocedural complications and disorders of digestive system; K56.7 Ileus, unspecified; H91.93 Unspecified hearing loss, bilateral; M51.36 Other intervertebral disc degeneration, lumbar region; F41.1 Generalized anxiety disorder; E78.2 Mixed hyperlipidemia; I71.23 Aneurysm of the descending thoracic aorta, without rupture; I71.21 Aneurysm of the ascending aorta, without rupture; E83.52 Hypercalcemia; R31.0 Gross hematuria; Z86.718 Personal history of other venous thrombosis and embolism; Z86.711 Personal history of pulmonary embolism; Z79.01 Long term (current) use of anticoagulants; Z85.820 Personal history of malignant melanoma of skin; Z79.899 Other long term (current) drug therapy; R00.0 Tachycardia, unspecified; Z53.31 Laparoscopic surgical procedure converted to open procedure; E55.9 Vitamin D deficiency, unspecified
CPT/HCPCS: 36415; 71045; 71275; 74018; 74022; 74174; 74177; 74240; 74248; 80048; 80053; 81003; 81015; 83605; 83735; 84100; 84439; 84443; 85025; 85610; 87040; 93005; 96372; 96374; 99285; J0330; J0690; J1100; J1170; J1650; J2060; J2405; J2470; J2543; J2704; J2765; J3010; J3490; J7030; J7799

== ENCOUNTER → 2024-02-26 09:34 | Outpatient (BNVA) | payer MEDICARE, SELFPAY | PROVIDERS: PCP Nurse Practitioner Family; Visit Provider Student in an Organized Health Care Education/Training Program | DX: Z09 Encounter for follow-up examination after completed treatment for conditions other than malignant neoplasm (principal) | CPT/HCPCS: 99204; 99213 ==

== ENCOUNTER → 2024-05-25 14:39 | Outpatient (BNVA) | payer MEDICARE, SELFPAY | PROVIDERS: PCP Nurse Practitioner Family; Visit Provider Nurse Practitioner Family | DX: J90 Pleural effusion, not elsewhere classified (principal); I70.0 Atherosclerosis of aorta; M41.84 Other forms of scoliosis, thoracic region | CPT/HCPCS: 71046 ==

== ENCOUNTER 2024-06-14 08:39 | Outpatient (CLI) | payer MEDICARE, SELFPAY ==
--- NOTE | 2024-06-14 09:00 | CT_ITS ---
WS: [id number] CTA THORACIC AORTA WITH AND WITHOUT HISTORY: I71.20 - Thoracic aortic aneurysm, without rupture, unspe... TECHNIQUE: CTA imaging of the thorax is performed with and without contrast. After noncontrast imagin g is performed, CT angiogram is performed during injection of Omnipaque 350; 100 mL IV.. Sagittal and coronal reconstructions, sagittal and coronal MIP imaging is submitted. All CT scans at [facility] use at least one of these dose optimization techniques: automated exposure control; mA and/or kV adjustment per patient size (includes targeted exams where dose is matched to clinical indication) ; or iterative reconstruction. DLP: 804.83 mGy.cm COMPARISON: 01/30/2024, 04/26/2022 New moderate bilateral layering pleural effusions since 01/30/2024. Mild interstitial edema, bilateral. No pneumonia or mass. Compressive atelectasis at the lung bases due to the effusions. Thoracic aorta: Marked dilatation of the ascending thoracic aorta. Maximum diameter of 7.1 cm. Contin ued increase in size of the aneurysm. Sinotubular junction remains normal at approximately 4 cm. Sinu s of Valsalva normal at 4.7 cm. Aneurysm continues through the aortic arch with normal tapering dista l to the subclavian artery. Mild ectasia and dilatation of the descending aorta with diameter measuri ng up to 4.4 cm. Bovine arch. Mild atherosclerotic plaque within the aorta. There is no dissection. Normal pulmonary arteries. No pulmonary emboli identified. Heart is moderately enlarged. No pericardi al effusion. No adenopathy. No adrenal mass. Mild hepatic steatosis. CT/CT angio chest [id number] IMPRESSION: 1. 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 Ma ximum transverse diameter is now 7.1 cm as compared to 6.5 cm in a similar loca tion on the prior study. 2. Distal, descending thoracic aorta is mildly ectatic. 3. New moderate layering pleural effusions. 4. Moderate cardiomegaly.
[2024-06-14 09:06] LABS: Blood Urea Nitrogen 9 mg/dL (8-23)
[2024-06-14] MEDS: iohexol 350 mg/mL 500 mL Btl (per mL) IV (09:26)
== END 2024-06-14 08:40 | disposition home or self-care (01) ==
LOC: RAD 08:40
PROVIDERS: PCP Nurse Practitioner Family; Visit Provider Nurse Practitioner Family
DX: I71.20 Thoracic aortic aneurysm, without rupture, unspecified (principal); J90 Pleural effusion, not elsewhere classified; I51.7 Cardiomegaly; J98.11 Atelectasis; I70.0 Atherosclerosis of aorta; K76.0 Fatty (change of) liver, not elsewhere classified
CPT/HCPCS: 71275; 82565; 84520

== ENCOUNTER → 2024-06-24 10:56 | Outpatient (BNVA) | payer MEDICARE, SELFPAY | PROVIDERS: PCP Family Medicine; Visit Provider Family Medicine | DX: I50.9 Heart failure, unspecified (principal); Z86.711 Personal history of pulmonary embolism; J90 Pleural effusion, not elsewhere classified; I51.7 Cardiomegaly | CPT/HCPCS: 71046; 80053; 83880; 85025 ==

== ENCOUNTER → 2024-10-28 13:49 | Outpatient (BNVA) | payer MEDICARE, SELFPAY | PROVIDERS: PCP Family Medicine; Visit Provider Family Medicine | DX: R31.9 Hematuria, unspecified (principal) | CPT/HCPCS: 81000 ==

== ENCOUNTER 2024-11-19 14:06 | Outpatient (CLI) | payer MEDICARE, SELFPAY ==
--- NOTE | 2024-11-19 14:15 | USCV_ITS ---
Zeus Arthur Age: 89 Gender: M : 1935 Exam Date: 11/19/2024 14:25 Ordering Phys: Sabino Dobbs MD Technologist: JORDIN Exam Location: [facility] [place] Indication: Aortic Valve Insufficiency BP: 160 / 70 HR: 82 Rhythm: Sinus Technical Quality: Adequate MEASUREMENTS (Male / Female) Normal Values 2D ECHO LV Diastolic Diameter PLAX 5.8 cm 4.2 - 5.9 / 3.9 - 5.3 cm IVS Diastolic Thickness 1.1 cm 0.6 - 1.0 / 0.6 - 0.9 cm IVS Systolic Thickness 2.0 cm LVPW Diastolic Thickness 1.4 cm 0.6 - 1.0 / 0.6 - 0.9 cm LVPW Systolic Thickness 2.1 cm LVOT Diameter 2.2 cm LV Ejection Fraction 2D Teich 55.6 % LV Ejection Fraction MOD 4C 55.1 % LV Ejection Fraction MOD 2C 60.1 % LV Ejection Fraction 2C AL 59.1 % LA Diameter 4.7 cm RA Systolic Volume 4C AL 108.6 ml RA Systolic Volume 4C MOD 106.8 ml LA Sys Volume AL 80.0 cm cubed LA Sys Volume Index AL 35.7 cm cubed/m squared Aorta at Sinotubular Diameter 3.9 cm DOPPLER AV Peak Velocity 156.0 cm/s LVOT Peak Velocity 104.0 cm/s AV Area Cont Eq vti 2.7 cm squared AV Area Cont Eq pk 2.5 cm squared MV Peak Velocity 251.0 cm/s MV Area PHT 6.3 cm squared Mitral E to A Ratio 2.2 TV Peak Velocity 282.5 cm/s TR Peak Velocity 323.0 cm/s TR Peak Gradient 41.7 mmHg TV Peak E Velocity 135.0 cm/s PV Peak Velocity 88.0 cm/s FINDINGS Left Ventricle Left ventricle is mildly dilated. LV systolic function is normal with EF of 55-60%. No regional wall motion abnormalities are seen. Right Ventricle Normal in size and function Right Atrium Severely dilated Left Atrium Dilated Mitral Valve Grossly normal. Moderate mitral regurgitation. Aortic Valve Aortic valve is thickened and calcified. Moderate aortic regurgitation. No significant stenosis. Tricuspid Valve Mild tricuspid regurgitation. RVSP is 40 to 45 mmHg. This is consistent with mild pulmonary hypertension Pulmonic Valve Not well-visualized Pericardium Normal Aorta Ascending aorta is mildly dilated with diameter of 4.04 cm IVC Not well-visualized CONCLUSIONS LV systolic function is normal with EF of 55-60%. Right atrium is severely dilated. Left atrial dilation. Moderate mitral regurgitation. Moderate aortic regurgitation Mild tricuspid regurgitation Mild pulmonary hypertension Ascending aorta is mildly dilated with diameter of 4.04 cm. Compared to prior echocardiogram from 2021, patient has a moderate mitral and moderate aortic regurgitation. Heath Rodriguez MD (Electronically Signed) Final Date: 01 December 2024 11:42 S
== END 2024-11-19 14:07 | disposition home or self-care (01) ==
LOC: RAD 14:09
PROVIDERS: PCP Family Medicine; Visit Provider Family Medicine
DX: I35.1 Nonrheumatic aortic (valve) insufficiency (principal); I34.0 Nonrheumatic mitral (valve) insufficiency; I50.814 Right heart failure due to left heart failure; I35.8 Other nonrheumatic aortic valve disorders; I07.1 Rheumatic tricuspid insufficiency; I77.810 Thoracic aortic ectasia; R93.1 Abnormal findings on diagnostic imaging of heart and coronary circulation
CPT/HCPCS: 93306

== ENCOUNTER → 2025-01-06 10:58 | Outpatient (BNVA) | payer MEDICARE, SELFPAY | PROVIDERS: PCP Family Medicine; Visit Provider Family Medicine | DX: I50.814 Right heart failure due to left heart failure (principal) | CPT/HCPCS: 80053 ==

== ENCOUNTER → 2025-02-09 12:03 | Outpatient (BNVA) | payer MEDICARE, SELFPAY | PROVIDERS: PCP Family Medicine; Visit Provider Family Medicine | DX: I50.814 Right heart failure due to left heart failure (principal); K92.2 Gastrointestinal hemorrhage, unspecified; J90 Pleural effusion, not elsewhere classified | CPT/HCPCS: 71046; 80053; 85025 ==